=== PATIENT | male | born 1965 | race Caucasian/White ===

== ENCOUNTER 2017-10-05 04:07 | Emergency (ER) | payer OTHER, MEDICAID, SELFPAY ==
[2017-10-05] VITALS (13 sets, daily range): BP systolic 118–180; BP diastolic 75–112; PULSE 102–125; RESP 18–23; TEMP 36.2; O2SAT 96–100
[2017-10-05 04:41] LABS: Add Manual Diff / Slide Review NO; Basophils Percent Auto 0.2 % (0-2); Eosinophils Percent Auto 0.1 % (2-4); Hematocrit 44.6 % (41-53); Hemoglobin 14.8 g/dL (13.5-17.5); Lymphocytes Percent Auto 4.1 % (25-40); Mean Corpuscular HGB Conc 33.2 % (30-36); Mean Corpuscular Hemoglobin 31.3 PG (26-34); Mean Corpuscular Volume 94.3 fL (80-100); Monocytes Percent Auto 2.1 % (3-14); Neutrophils Absolute Auto 17100 /uL (3000-5900); Neutrophils Percent Auto 93.5 % (50-75); Platelet Count 308 X10^3/uL (150-400); Red Blood Cell Count 4.72 X10^6/uL (4.5-5.9); Red Cell Distribution Width 12.9 % (11.6-14.8); White Blood Cell Count 18.3 X10^3/uL (4.5-11.0)
[2017-10-05 04:45] LABS: Alanine Aminotransferase 32 IU/L (21-72); Albumin 4.8 g/dL (3.5-5.0); Albumin Globulin Ratio 1.3 (1.0-2.8); Alkaline Phosphatase 105 U/L (38-126); Aspartate Aminotransferase 30 IU/L (17-59); Bilirubin Total 0.4 mg/dL (0.2-1.3); Blood Urea Nitrogen 12 mg/dL (9-20); Calcium 9.7 mg/dL (8.4-10.2); Carbon Dioxide 27 mmol/L (22-32); Chloride 106 mmol/L (98-107); Estimated Glomerular Filt Rate > 60.0 mL/min (>60); Globulin 3.8 g/dL (1.7-4.1); Glucose 135 mg/dL (70-100); HEMOLYSIS < 15 (0-50); Lipase 50 U/L (23-300); Potassium 4.9 mmol/L (3.4-5.1); Sodium 148 mmol/L (137-145); Total Protein 8.6 g/dL (6.3-8.2)
--- NOTE | 2017-10-05 04:56 | ED_ITS ---
HPI - Overdose General Chief Complaint: Toxicology Problem Stated Complaint: Overdose Time Seen by Provider: 10/05/17 04:30 Source: patient Mode of arrival: ambulatory Limitations: no limitations History of Present Illness HPI Narrative: The patient is here with a methamphetamine overdose. He was approached by police officers about 10:00 p.m. yesterday, he swallowed 2 g of methamphetamine. He arrives with diaphoresis, tremor, and difficulty walking. He is oriented. He denies chest pain or dyspnea. He has had no vomiting. There has been no seizure activity. He has not passed out. He has a history of BPH, he cannot urinate. He has lower abdominal pain associated with this. Bowel movements have been normal. Urine output was normal earlier today. He later informed me that he is a heavy, daily drinker. His last drink was about 4:00 p.m. yesterday. He wishes to be sober. Related Data Previous Rx's Medication Instructions Recorded fluticasone 1 spray INTRANASAL BID #16 gm 01/25/16 sildenafil [Viagra] 50 mg PO PRN PRN #6 tab 01/25/16 Allergies Allergy/AdvReac Type Severity Reaction Status Date / Time No Known Drug Allergies Allergy Verified 10/05/17 06:03 Review of Systems Review of Systems All systems reviewed & are unremarkable except as noted in HPI and below Constitutional Reports as per HPI, Denies chills, Denies fever(s), Denies lethargy and Denies weakness Eyes Denies change in vision ENT Ears, Nose, Mouth, and Throat: Denies dysphagia, Denies dizziness and Denies sore throat Cardiovascular Denies chest pain, Reports diaphoresis, Reports rapid heart rate, Denies palpitations and Denies dyspnea Respiratory Denies dyspnea Gastrointestinal Gastrointestinal: Denies abdominal pain, Denies change in bowel habits and Denies dysphagia Genitourinary Reports as per HPI Musculoskeletal Denies back pain, Denies muscle weakness, Denies numbness and Denies tingling Integumentary/Breasts Denies erythema, Denies rash and Denies wounds Neurologic Denies confusion, Denies dizziness, Denies numbness, Denies tingling and Denies weakness Comments: Difficulty walking Psychiatric Reports anxiety and Denies confusion Endocrine Denies palpitations [facility] Medical History BPH (benign prostatic hyperplasia) (Acute) Family History Brother Age: 45 Mental health problem Mother Age: 68 Hypertension Asthma Exam Initial Vital Signs Initial Vital Signs: Vital Signs Temperature 97.2 F L 10/05/17 04:31 Pulse Rate 125 H 10/05/17 04:31 Respiratory Rate 18 10/05/17 04:31 Blood Pressure 137/82 H 10/05/17 04:31 Pulse Oximetry 97 10/05/17 04:31 See RN notes for vitals. Const General: cooperative, in distress, anxious and diaphoretic Nutritional Appearance: average body habitus HENMT Head: normal to inspection, normocephalic and atraumatic Face and sinus: normal facial exam and face symmetric Throat: posterior oropharynx normal, tonsils normal and posterior oropharynx abnormal Eyes General: appearance normal, both eyes and all related structures Visual Vela: normal visual vela by confrontation Conjunctivae: conjunctivae normal Pupils: PERRL EOM: EOM intact bilaterally Neck Neck: normal visual inspection, full ROM, trachea midline and No tender Resp Effort & Inspection: normal respiratory effort, able to speak in complete sentences, no respiratory distress and no use of accessory muscles Auscultation: clear to auscultation bilaterally, no rales, no rhonchi and no wheezes Cardio Rate: regular rate Rhythm: regular rhythm Heart Sounds: no click, no gallops, no murmurs and no rubs Pulses: normal peripheral pulses GI Inspection: other (The patient has suprapubic tenderness with distention suggestive of urinary retention. The tenderness is not accompanied by guarding or rebound. He has normal bowel sounds. Abdomen is otherwise benign.) Back/Spine/Pelvis Back: No CVA tenderness Skin General: no rashes or lesions noted Neuro General: alert, awake, oriented x3, no focal motor deficits, not confused and other (Generalized tremor with mild ataxia.) Cranial Nerves: CN's II-XI intact bilaterally Speech: speech normal Motor: muscle tone normal throughout Extrem General: no pedal edema and no calf tenderness Psych Speech and Movement: agitated and restless Mood: dysthymic mood Course Orders Ordered: Discontinued Medications Sodium Chloride (Normal Saline 0.9%) 1,000 mls @ 1,000 mls/hr IV BOLUS ONE Stop: 10/05/17 05:30 Last Infusion: 10/05/17 11:14 Dose: 0 mls/hr Admin: 10/05/17 06:11 Dose: 1,000 mls/hr Lorazepam (Ativan) 1 mg IV NOW ONE Stop: 10/05/17 04:32 Last Admin: 10/05/17 06:10 Dose: 1 mg Lorazepam (Ativan) 1 mg IV NOW ONE Stop: 10/05/17 07:44 Last Admin: 10/05/17 07:49 Dose: 1 mg Vital Signs - 8 hr 10/05/17 04:31 10/05/17 05:00 10/05/17 06:17 Temperature 97.2 F L Pulse Rate 125 H 122 H 115 H Respiratory Rate 18 19 Blood Pressure [Right Arm] 137/82 H 145/112 H 153/95 H Pulse Oximetry 97 97 97 10/05/17 06:19 10/05/17 06:55 10/05/17 07:16 Temperature Pulse Rate 114 H 120 H 121 H Respiratory Rate 20 19 23 Blood Pressure [Right Arm] 162/99 H 141/88 H 162/109 H Pulse Oximetry 97 96 MDM - Overdose Lab Data Result diagrams: 10/05/17 04:10 10/05/17 04:10 Lab Results 10/05/17 10/05/17 Range/Units 04:10 04:10 WBC 18.3 H (4.5-11.0) X10^3/uL RBC 4.72 (4.5-5.9) X10^6/uL Hgb 14.8 (13.5-17.5) g/dL Hct 44.6 (41-53) % MCV 94.3 (80-100) fL MCH 31.3 (26-34) PG MCHC 33.2 (30-36) % RDW 12.9 (11.6-14.8) % Plt Count 308 (150-400) X10^3/uL Neut % (Auto) 93.5 H (50-75) % Lymph % (Auto) 4.1 L (25-40) % [place] % (Auto) 2.1 L (3-14) % Eos % (Auto) 0.1 L (2-4) % Baso % (Auto) 0.2 (0-2) % Neut # (Auto) 07249 H (8752-3828) /uL Sodium 148 H (137-145) mmol/L Potassium 4.9 (3.4-5.1) mmol/L Chloride 106 (98-107) mmol/L Carbon Dioxide 27 (22-32) mmol/L BUN 12 (9-20) mg/dL Creatinine 0.80 (0.66-1.25) mg/dL Estimated GFR > 60.0 (>60) mL/min BUN/Creatinine Ratio 15.0 (6-22) Glucose 135 H (70-100) mg/dL Calcium 9.7 (8.4-10.2) mg/dL Total Bilirubin 0.4 (0.2-1.3) mg/dL AST 30 (17-59) IU/L ALT 32 (21-72) IU/L Alkaline Phosphatase 105 (38-126) U/L Total Protein 8.6 H (6.3-8.2) g/dL Albumin 4.8 (3.5-5.0) g/dL Globulin 3.8 (1.7-4.1) g/dL Albumin/Globulin Ratio 1.3 (1.0-2.8) Lipase 50 (23-300) U/L MDM Narrative Medical decision making narrative: About 7:00 a.m. the patient informed me of his alcohol use. He has been without methamphetamine for 9 hr, it is unlikely the methamphetamine is having the impact this point. He is normotensive, oriented x3. His heart rate is 118 and he has ongoing mild to moderate tremor. I strongly suggested a detox facility. He desires of [facility] but declines, he has already made plans to seek counseling, and wants to do this without chemicals. He has urinary retention and will be discharged with a leg bag with Urology consultation. Discharge Plan Departure Patient Disposition: Home, Self-Care Clinical Impression: Alcohol withdrawal syndrome, Methamphetamine abuse, Acute urinary retention Discharge Date/Time: 10/05/17 13:04 Interventions: ED Discharge Assessment Last Done: 10/05/17 12:47 Instructions: DI for Drug or Alcohol Withdrawal Activity Restrictions/Additional Instructions: Drink plenty of fluids and stay well hydrated. Follow through with her plan for alcoholism treatment. Your inability to urinate may be associated with the methamphetamine abuse, we will pull the tube, return here if you have ongoing problems. Prescriptions: No Action sildenafil [Viagra] 50 MG tablet 50 mg PO PRN PRNQty: 6 RF: 3 fluticasone 16 GM spray,suspension 1 spray Intranasal BID Qty: 16 RF: 1
--- NOTE | 2017-10-05 05:09 | PC.NURSE ---
Pt. having difficulty urinating but refuses cath. alerted, no further orders. Pt. continuing with to use urinal
[2017-10-05] MEDS: LORazepam 2 MG/ML SYRINGE 1 MG IV ×2 (06:10→07:49)
[2017-10-05] MEDS: SODIUM CHLORIDE 0.9% 1,000 ML 1000 ML IV (06:11)
--- NOTE | 2017-10-05 07:12 | PC.NURSE ---
0545 patient bladder scan showed approximately 400 ml of urine, childress placed and had 500 cc of urine output
--- NOTE | 2017-10-05 08:54 | PC.NURSE ---
Pt stood at bedside. noted to be shaky and this RN felt pt was unsafe to attempt stepping away from side of bed. pt directed to get back into bed, which he did. Dr. Lim notified of ambulation trial fail
--- NOTE | 2017-10-05 09:14 | PC.NURSE ---
poison control called for update. update given
--- NOTE | 2017-10-05 09:33 | PC.NURSE ---
No triage done by admitting RN. Given report upon arrival at 0700
--- NOTE | 2017-10-05 10:54 | PC.NURSE ---
patient was able to stand but I do not feel he is ready to leave. He is unsteady on feet. @[id number]
== END 2017-10-05 13:04 | disposition home or self-care (01) ==
PROVIDERS: Emergency Medicine; Emergency Provider Emergency Medicine; Family Provider Family Medicine; PCP Family Medicine
DX: F10.239 Alcohol dependence with withdrawal, unspecified (principal); F15.10 Other stimulant abuse, uncomplicated; R33.8 Other retention of urine
CPT/HCPCS: 51705; 80053; 83690; 85025; 96361; 96374; 96375; 99283; 99285; J2060

== ENCOUNTER 2017-10-06 07:31 | Emergency (ER) | payer OTHER, MEDICAID, SELFPAY ==
[2017-10-06 07:50] VITALS: BP 139/84; PULSE 92; RESP 14; TEMP 36.3; O2SAT 97
--- NOTE | 2017-10-06 07:58 | ED_ITS ---
HPI - Male Genitourinary General Chief complaint: Urogenital-Male Stated complaint: CATHETER PAIN Time Seen by Provider: 10/06/17 07:53 Source: patient Mode of arrival: ambulatory Limitations: no limitations History of Present Illness HPI Narrative: Patient is a 51-year-old male who presents with painful urination. He had a Bright catheter placed in the ED yesterday for urinary retention. He says that he has been urinating fine but it schwab every time. No abdominal pain no nausea no vomiting he is overall feeling much better than he was yesterday. MD Complaint: dysuria Location: penis Related Data Previous Rx's Medication Instructions Recorded fluticasone 1 spray INTRANASAL BID #16 gm 01/25/16 sildenafil [Viagra] 50 mg PO PRN PRN #6 tab 01/25/16 sulfamethoxazole-trimethoprim 1 tab PO BID 5 Days #10 tab 10/06/17 [Bactrim DS] Allergies Allergy/AdvReac Type Severity Reaction Status Date / Time No Known Drug Allergies Allergy Verified 10/06/17 07:50 Review of Systems Review of Systems GENERAL: Denies chills,fever HEENT: Denies throat pain RESPIRATORY: Denies dyspnea, cough, wheezing CARDIOVASCULAR: Denies chest pain, palpitations GASTROINTESTINAL: Denies nausea, vomiting : See HPI MUSCULOSKELETAL: Denies extremity pain, injury SKIN: No rash, no laceration, no pruritus NEUROLOGIC: Denies weakness, dizziness, headache, numbness review of systems is negative except for those stated above and HPI All systems reviewed & are unremarkable except as noted in HPI and below PFSH Medical History BPH (benign prostatic hyperplasia) (Acute) Methamphetamine abuse (Acute) Exam Initial Vital Signs Initial Vital Signs: Vital Signs Temperature 97.4 F L 10/06/17 07:50 Pulse Rate 92 H 10/06/17 07:50 Respiratory Rate 14 10/06/17 07:50 Blood Pressure 139/84 H 10/06/17 07:50 Pulse Oximetry 97 10/06/17 07:50 Const General: cooperative and well developed Nutritional Appearance: well nourished Orientation: alert, awake, oriented x3 and not confused Eyes General: appearance normal, both eyes and all related structures Neck Neck: normal visual inspection and full ROM Chest Chest: normal inspection of the chest Resp Effort & Inspection: normal respiratory effort and able to speak in complete sentences Cardio Pulses: normal peripheral pulses GI Palpation: soft, No rigid and No tender General: No CVA tenderness Skin General: no rashes or lesions noted, No erythema, No induration, No petechiae and warm Neuro General: alert, awake, oriented x3 and CN's II-XI intact bilaterally Speech: speech normal Gait: normal gait Course Orders Ordered: ED Orders 10/06/17 08:40 Urinalysis and Microscopic Stat Discontinued Medications Phenazopyridine HCl (Pyridium 100mg Prepack) 1 bottle MISC SEEINSTR ONE Stop: 10/06/17 08:48 Last Admin: 10/06/17 09:24 Dose: 1 bottle Vital Signs - 8 hr 10/06/17 07:50 10/06/17 09:27 10/06/17 09:28 Temperature 97.4 F L Pulse Rate 92 H 87 87 Respiratory Rate 14 17 17 Blood Pressure 139/84 H 133/76 H Blood Pressure [Right Arm] 133/76 H Pulse Oximetry 97 99 99 MDM - Male Genitourinary Lab Data Lab Results 10/06/17 Range/Units 08:40 Urine Color Yellow Urine Appearance Clear Urine pH 6.0 (4.5-8.0) Ur Specific [place] >=1.030 H (1.000-1.035) Urine Protein 1+ H (Negative) Urine Glucose (UA) Negative (Normal) g/dL Urine Ketones Trace H (NEGATIVE) Urine Occult Blood 1+ H (Negative) Urine Nitrate Negative (Negative) Urine Bilirubin Negative (NEGATIVE) Urine Urobilinogen 0.2 (0.2) E.U./dL Ur Leukocyte Esterase Negative (NEGATIVE) Urine RBC 1-5/hpf (0-5/HPF) Urine WBC 0-1/hpf (0-5/HPF) Urine Bacteria Occasional (0-1) (None) Urine Mucus 3+ H (Negative) Ur Culture Indicated? Cult not indicated Micro UA Comment Not Reportable Discharge Plan Departure Patient Disposition: Home, Self-Care Clinical Impression: UTI (urinary tract infection) Discharge Date/Time: 10/06/17 09:29 Interventions: ED Discharge Assessment Last Done: 10/06/17 09:28 Instructions: DI for Urinary Tract Infection (UTI) Activity Restrictions/Additional Instructions: *You have been diagnosed with UTI *What to do: Increase fluid intake *Continue to take medications as directed -Pyridium 3 times a day only if needed for burning sensation -Septra twice a day for 5 days *Follow up with your primary care provider in 2-3 days *Return to ER if you should have any new, worsening or concerning symptoms Prescriptions: New sulfamethoxazole-trimethoprim [Bactrim DS] 800-160 mg tablet 1 tab PO BID 5 Days Qty: 10 RF: 0 No Action sildenafil [Viagra] 50 MG tablet 50 mg PO PRN PRNQty: 6 RF: 3 fluticasone 16 GM spray,suspension 1 spray Intranasal BID Qty: 16 RF: 1 Referrals: Denice Viera DO [Primary Care Provider] -
[2017-10-06 09:02] LABS: Appearance Urine UA CLEAR; Bilirubin Urine UA NEGATIVE (NEGATIVE); Color Urine UA YELLOW; Glucose Urine UA NEGATIVE (Normal); Ketones Urine UA TRACE (NEGATIVE); Leukocyte Esterase Urine UA NEGATIVE (NEGATIVE); Nitrite Urine UA Negative (Negative); Occult Blood Urine UA 1+ (Negative); Protein Urine UA 1+ (Negative); Specific Gravity Urine UA >=1.030 (1.000-1.035); Urobilinogen Urine UA 0.2 E.U./dL (0.2)
[2017-10-06 09:06] LABS: Bacteria Urine Occasional (0-1); Culture Indicated Urine Cult Not Indicated; Mucus Urine 3+ (Negative); RBC Urine 1-5/HPF (0-5/HPF); WBC Urine 0-1/HPF (0-5/HPF)
[2017-10-06] MEDS: PHENAZOPYRIDINE 100 MG PREPACK 1 BOTTLE MISC (09:24)
[2017-10-06 09:27] VITALS: BP 133/76; PULSE 87; RESP 17; O2SAT 99
[2017-10-06 09:28] VITALS: BP 133/76; PULSE 87; RESP 17; O2SAT 99
== END 2017-10-06 09:29 | disposition home or self-care (01) ==
PROVIDERS: Emergency Provider Emergency Medicine; Family Provider Family Medicine; PCP Family Medicine
DX: N39.0 Urinary tract infection, site not specified (principal)
CPT/HCPCS: 81001; 81003; 99282; 99283

== ENCOUNTER 2020-04-27 11:30 | Emergency (ER) | payer OTHER, MEDICAID, SELFPAY ==
[2020-04-27] VITALS (11 sets, daily range): BP systolic 134–169; BP diastolic 80–93; PULSE 53–77; RESP 14; TEMP 36.8; O2SAT 95–100; BMI 25.0
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
--- NOTE | 2020-04-27 12:10 | PC.NURSE ---
Officer Mac with [employer] here to speak with pt
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
[2020-04-27] MEDS: SODIUM CHLORIDE 0.9% 1,000 ML 1000 ML IV (12:39)
[2020-04-27 12:41] LABS: Add Manual Diff / Slide Review NO; Basophils Absolute Auto 100 /uL (0-100); Basophils Percent Auto 0.5 % (0-2); Eosinophils Absolute Auto 100 /uL (0-450); Eosinophils Percent Auto 1.2 % (2-4); Hematocrit 44.6 % (41-53); Hemoglobin 14.6 g/dL (13.5-17.5); Lymphocytes Absolute Auto 1900 /uL (1100-4500); Lymphocytes Percent Auto 19.6 % (25-40); Mean Corpuscular HGB Conc 32.8 % (30-36); Mean Corpuscular Hemoglobin 31.1 PG (26-34); Mean Corpuscular Volume 94.7 fL (80-100); Monocytes Absolute Auto 700 /uL (0-900); Monocytes Percent Auto 6.6 % (3-14); Neutrophils Absolute Auto 7100 /uL (1500-7000); Neutrophils Percent Auto 72.1 % (50-75); Platelet Count 218 X10^3/uL (150-400); Red Blood Cell Count 4.71 X10^6/uL (4.5-5.9); Red Cell Distribution Width 13.1 % (11.6-14.8); White Blood Cell Count 9.8 X10^3/uL (4.5-11.0)
--- NOTE | 2020-04-27 12:57 | ED.ASSAULT ---
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 Departure Patient Disposition: Home Clinical Impression: Orbit fracture, right Qualifiers: Encounter type: initial encounter Fracture type: closed Qualified Code(s): S02.85XA - Fracture of orbit, unspecified, initial encounter for closed fracture Fracture, nasal Qualifiers: Encounter type: initial encounter Fracture type: closed Qualified Code(s): S02.2XXA - Fracture of nasal bones, initial encounter for closed fracture Increased intraocular pressure Qualifiers: Laterality: right Qualified Code(s): H40.051 - Ocular hypertension, right eye CHI (closed head injury) Qualifiers: Encounter type: initial encounter Qualified Code(s): S09.90XA - Unspecified injury of head, initial encounter Closed rib fracture Qualifiers: Encounter type: initial encounter Rib fracture type: single rib Laterality: left Qualified Code(s): S22.32XA - Fracture of one rib, left side, initial encounter for closed fracture Instructions: DI for Nose Fracture, DI for Rib Fracture, DI for Orbital Fracture, DI for Closed Head Injury, DI for Abrasion Activity Restrictions/Additional Instructions: You have been diagnosed with [right-sided orbital fracture, nasal fracture, increased ocular pressure, closed head injury, mildly displaced closed 8 left-sided rib flexure]. What to do: *Take your medications as directed. Please use [id number] Tylenol and or Motrin as needed for discomfort. Use lidocaine patch on affected back pain as needed. Please sleep with head of bed elevated and use cool pack on affected eye to help with swelling. Please do not blow your nose. Lidocaine patch has been transmitted to [facility] in [place]. Please use Timolol eye drop that was provided to you in ED 1 drop, once a day to help with increased eye pressure. You need to follow-up with print shop manager next week to recheck your eye. You need to follow-up with [place] [facility] in 7-10 days. They will call you to set up an appointment but if you do not hear back from them tomorrow please contact them at [phone]. It is located at [address] [place] [address]. *Follow up with your primary care provider tomorrow as scheduled. Let them know you were seen in the ED and that we asked you to be seen in follow up. *Return to ED if you have any new, worsening, or concerning symptoms, such as [worsening pain, worsening eye pain, severe headache, nausea, vomiting, fever, chills, changes in vision, chest pain, breathing difficulty, or any acute concerns]. Prescriptions: New lidocaine 5 % adhesive patch,medicated 1 patch topical DAILY PRN (Reason: back pain) Qty: 30 RF: 0 No Action sildenafil [Viagra] 50 MG tablet 50 mg PO PRN PRNQty: 6 RF: 3 fluticasone propionate 16 GM spray,suspension 1 spray Intranasal BID Qty: 16 RF: 1 Referrals: Elva Comer MD [Physician] - <Velma Lim DO - Last Filed: 04/30/20 13:46> Cosign ED Attending Shuature Attestation: I was immediately available in the department for consultation. Documentation has been reviewed. I agree with assessment and plan.
[2020-04-27 12:59] LABS: Alanine Aminotransferase 24 IU/L (<50); Albumin 4.2 g/dL (3.5-5.0); Albumin Globulin Ratio 1.4 (1.0-2.8); Alkaline Phosphatase 79 U/L (38-126); Aspartate Aminotransferase 36 IU/L (17-59); BUN Creatinine Ratio 22.4 (6-22); Bilirubin Total 0.3 mg/dL (0.2-1.3); Blood Urea Nitrogen 17 mg/dL (9-20); Calcium 9.2 mg/dL (8.4-10.2); Carbon Dioxide 29 mmol/L (22-32); Chloride 107 mmol/L (98-107); Estimated Glomerular Filt Rate > 60.0 mL/min (>60); Glucose 101 mg/dL (70-100); HEMOLYSIS < 15 (0-50); Lipase 69 U/L (23-300); Potassium 4.2 mmol/L (3.4-5.1); Sodium 140 mmol/L (137-145); Total Protein 7.2 g/dL (6.3-8.2)
[2020-04-27] MEDS: LIDOCAINE PATCH 1 EACH ADH..PATCH TOP (14:53)
[2020-04-27] MEDS: ACETAMINOPHEN 325 MG TABLET 650 MG PO (14:53)
[2020-04-27 15:36] LABS: Bacteria Urine None Seen; RBC Urine None Seen (0-5/HPF)
[2020-04-27 16:09] LABS: Appearance Urine UA CLEAR; Bilirubin Urine UA NEGATIVE (NEGATIVE); Color Urine UA YELLOW; Glucose Urine UA NEGATIVE (Negative); Ketones Urine UA TRACE (NEGATIVE); Leukocyte Esterase Urine UA NEGATIVE (NEGATIVE); Nitrite Urine UA NEGATIVE (Negative); Occult Blood Urine UA NEGATIVE (Negative); Protein Urine UA 2+ (Negative); Urobilinogen Urine UA 0.2 E.U./dL (0.2); pH Urine UA 6.5 (4.5-8.0)
[2020-04-27 16:11] LABS: Squamous Epithelial Cell Urine 0-1 /HPF (0-5/HPF); WBC Urine 1-5/HPF (0-5/HPF)
[2020-04-27 16:12] LABS: Culture Indicated Urine Cult Not Indicated
[2020-04-27] MEDS: KETOROLAC 60 MG/2 ML VIAL 15 MG IV (17:59)
[2020-04-27] MEDS: PROPARACAINE 0.5% OPHTH SOL 1 DROPS EYE-BOTH (18:00)
[2020-04-27] MEDS: TET,DIPH,PERTUSS(ACELL),VAC/PF 0.5 ML SYRINGE IM (18:03)
[2020-04-27] MEDS: TIMOLOL 0.5% OPHTH 1 DROPS EYE-RIGHT (18:35)
== END 2020-04-27 18:50 | disposition home or self-care (01) ==
PROVIDERS: Emergency Provider Nurse Practitioner Family; Family Provider Family Medicine
DX: S02.85XA Fracture of orbit, unspecified, initial encounter for closed fracture (principal); S02.2XXA Fracture of nasal bones, initial encounter for closed fracture; H40.051 Ocular hypertension, right eye; S09.90XA Unspecified injury of head, initial encounter; S22.32XA Fracture of one rib, left side, initial encounter for closed fracture; R07.0 Pain in throat; S00.31XA Abrasion of nose, initial encounter; M54.9 Dorsalgia, unspecified; N40.0 Benign prostatic hyperplasia without lower urinary tract symptoms; R07.81 Pleurodynia; Y04.2XXA Assault by strike against or bumped into by another person, initial encounter; Z23 Encounter for immunization
CPT/HCPCS: 36415; 70450; 70486; 71101; 80053; 81001; 81003; 83690; 85025; 90471; 96361; 96374; 99283; 99284; 90715; J1885

== ENCOUNTER 2021-02-17 18:57 | Emergency (ER) | payer OTHER, MEDICAID, SELFPAY ==
[2021-02-17 18:58] VITALS: BP 150/97; PULSE 169; RESP 22; TEMP 36.5; O2SAT 100; BMI 25.0
--- NOTE | 2021-02-17 19:01 | DI.RAD.S_ITS ---
PROCEDURE: XR CHEST 1V INDICATIONS: fall, trauma, preop TECHNIQUE: One view of the chest was acquired. COMPARISON: [facility], CR, XR CHEST 2 VIEWS, 06/08/2018, 11:50. FINDINGS: Surgical changes and devices: None. Lungs and pleura: Lungs are clear. There is hyperinflation of the lungs with flattening of the hemidiaphragms compatible with COPD. No pleural effusions or pneumothorax. Mediastinum: Mediastinal contours are unchanged. Heart size is mildly enlarged. Bones and chest wall: No suspicious bony lesions. Overlying soft tissues appear unremarkable. IMPRESSION: 1. No acute cardiopulmonary disease. 2. Findings compatible with COPD. Dictated by: Rai Zurita M.D. on 02/17/2021 at 19:52 Approved by: Rai Zurita M.D. on 02/17/2021 at 19:52
--- NOTE | 2021-02-17 19:01 | ED_ITS ---
HPI - Overdose General Chief Complaint: Toxicology Problem Stated Complaint: OD Time Seen by Provider: 02/17/21 19:00 History of Present Illness HPI Narrative: 55M smoker with history of polysubstance abuse presents by EMS for evaluation of OD. He had apparently just smoked some fentanyl and became unreponsive, EMS was dispatched as CPR in progress, but on arrival he was found to have a pulse, but agonal respirations. He was given a total of 6 mg of Narcan and had a rather rapid response. He has had a heart rate between 160 and 200 but appears to be in AFib PE. He states that he has also used some methamphetamines today. He did not receive any chest compressions. He is otherwise at baseline Related Data Previous Rx's Medication Instructions Recorded fluticasone propionate 50 1 spray INTRANASAL BID #16 gm 01/25/16 mcg/actuation nasal spray,suspension sildenafil 50 mg tablet (Viagra) 50 mg PO PRN PRN #6 tab 01/25/16 lidocaine 5 % topical patch 1 patch TOPICAL DAILY PRN #30 ea 04/27/20 Allergies Allergy/AdvReac Type Severity Reaction Status Date / Time No Known Drug Allergies Allergy Verified 04/27/20 11:46 Review of Systems Review of Systems Narrative: GENERAL: See HP. HEENT: Denies sinus pain, ear pain, sore throat, difficulty swallowing, dizziness. RESPIRATORY: Denies dyspnea, cough, wheezing, hemoptysis, sputum. CARDIOVASCULAR: See see HPI GASTROINTESTINAL: Denies nausea, vomiting, abdominal pain, diarrhea, constipation, melena. : Denies dysuria, frequency, incontinence, hematuria, urinary retention. MUSCULOSKELETAL: denies weakness, joint pain, or bony pain SKIN: Denies rash, skin lesions, or other NEUROLOGIC: Denies weakness, headache, numbness, change in speech, confusion, seizures, incoordination. PSYCHIATRIC: No concerning psychosocial issues. 12 point review of systems is negative except for those stated above Patient History Medical History BPH (benign prostatic hyperplasia) Methamphetamine abuse Surgical History History of facial surgery Family History Brother Age: 49 Mental health problem Mother Age: 72 Hypertension Asthma Social History Smoking Status: Current every day smoker Smoking Status: Current every day smoker alcohol intake frequency: 0-2 drinks per day Substance Use Type: former substance user and methamphetamine Exam Narrative Exam Narrative: GENERAL: [55] year old patient appears stated age. Shivering, alert and in moderate distress HEAD: Atraumatic. Normocephalic. EYES: Pupils equal round and reactive. Extraocular motions intact. No scleral icterus. No injection or drainage. ENT: Nose without bleeding, purulent drainage. Throat without erythema, tonsillar hypertrophy or exudate. Airway patent. NECK: Trachea midline. Non tender CARDIOVASCULAR: Regular rate and rhythm without murmurs, gallops, or rubs. RESPIRATORY: Clear to auscultation. Breath sounds equal bilaterally. No wheezes, rales, or rhonchi. GASTROINTESTINAL: Abdomen soft, non-tender, nondistended. EXTREMITIES: No edema or joint tenderness. BACK: Nontender without deformity or crepitance. No flank tenderness. NEURO: AOx3. SKIN: No rash or erythema of visible areas Initial Vital Signs Initial Vital Signs: Vital Signs Temperature 97.7 F 02/17/21 18:58 Pulse Rate 169 H 02/17/21 18:58 Respiratory Rate 22 02/17/21 18:58 Blood Pressure 150/97 H 02/17/21 18:58 Pulse Oximetry 100 02/17/21 18:58 Course Orders Ordered: ED Orders 02/17/21 19:01 XR chest 1V Stat Complete Blood Count AUTO DIFF Stat Comprehensive Metabolic Panel Stat Magnesium Stat NT-proBNP (BNP-Adult 18+) Stat Troponin & CK Cardiac Panel Stat EKG-12 Lead Stat MDM - Overdose Lab Data Result diagrams: 02/17/21 19:00 02/17/21 19:00 Labs: Lab Results 02/17/21 02/17/21 Range/Units 19:00 19:00 WBC 10.0 (4.5-11.0) X10^3/uL RBC 4.88 (4.5-5.9) X10^6/uL Hgb 15.1 (13.5-17.5) g/dL Hct 46.1 (41-53) % MCV 94.5 (80-100) fL MCH 30.9 (26-34) PG MCHC 32.7 (30-36) % RDW 14.0 (11.6-14.8) % Plt Count 266 (150-400) X10^3/uL Neut % (Auto) 53.4 (50-75) % Lymph % (Auto) 39.8 (25-40) % [place] % (Auto) 4.5 (3-14) % Eos % (Auto) 1.8 L (2-4) % Baso % (Auto) 0.5 (0-2) % Neut # (Auto) 5300 (3539-0352) /uL Lymph # (Auto) 4000 (3709-1571) /uL Fleming # (Auto) 400 (0-900) /uL Eos # (Auto) 200 (0-450) /uL Baso # (Auto) 100 (0-100) /uL Sodium 142 (137-145) mmol/L Potassium 3.7 (3.4-5.1) mmol/L Chloride 104 (98-107) mmol/L Carbon Dioxide 29 (22-32) mmol/L BUN 8 L (9-20) mg/dL Creatinine 0.81 (0.66-1.25) mg/dL Estimated GFR > 60.0 (>60) mL/min BUN/Creatinine Ratio 9.9 (6-22) Glucose 144 H (70-100) mg/dL Calcium 9.1 (8.4-10.2) mg/dL Magnesium 2.1 (1.6-2.3) mg/dL Total Bilirubin 0.5 (0.2-1.3) mg/dL AST 34 (17-59) IU/L ALT 29 (<50) IU/L Alkaline Phosphatase 98 (38-126) U/L Total Creatine Kinase 111 (55-170) U/L CK-MB (CK-2) 2.07 (<2.37) ng/mL CK-MB (CK-2) Rel Index 1.9 (1.5-5.0) % Troponin I < 0.012 (0.01-0.034) ng/mL NT-Pro-B Natriuret Pep 94 (<125) pg/mL Total Protein 8.0 (6.3-8.2) g/dL Albumin 4.6 (3.5-5.0) g/dL Globulin 3.4 (1.7-4.1) g/dL Albumin/Globulin Ratio 1.4 (1.0-2.8) MDM Narrative Medical decision making narrative: Patient feeling much better soon after his arrival. He is awake, alert and oriented. He has full capacity to make his own decisions. His girlfriend has come to pick him up. He refuses to stay and very pleasantly departs despite discussion of risks and benefits. He understands that though unlikely his overdose symptoms may return and has been given extensive return precautions for what to watch out for. He understands that leaving may put him at risk for permanent disability or even . He he understands that he may return immediately and at any point without any represent caution. Discharge Plan Departure Patient Disposition: Left Against Medical Advice Clinical Impression: Overdose Prescriptions: No Action sildenafil [Viagra] 50 MG tablet 50 mg PO PRN PRNQty: 6 3RF fluticasone propionate 16 GM spray,suspension 1 spray Intranasal BID Qty: 16 1RF lidocaine 5 % adhesive patch,medicated 1 patch topical DAILY PRN (Reason: back pain) Qty: 30 0RF Rx Instructions: leave on most painful area for up to 12 hrs Stand Alone Forms: Against Medical Advice
[2021-02-17 19:04] VITALS: PULSE 164; RESP 23; O2SAT 99
[2021-02-17 19:12] LABS: Add Manual Diff / Slide Review NO; Basophils Absolute Auto 100 /uL (0-100); Basophils Percent Auto 0.5 % (0-2); Eosinophils Absolute Auto 200 /uL (0-450); Eosinophils Percent Auto 1.8 % (2-4); Hematocrit 46.1 % (41-53); Hemoglobin 15.1 g/dL (13.5-17.5); Lymphocytes Absolute Auto 4000 /uL (1100-4500); Lymphocytes Percent Auto 39.8 % (25-40); Mean Corpuscular HGB Conc 32.7 % (30-36); Mean Corpuscular Hemoglobin 30.9 PG (26-34); Mean Corpuscular Volume 94.5 fL (80-100); Monocytes Absolute Auto 400 /uL (0-900); Monocytes Percent Auto 4.5 % (3-14); Neutrophils Absolute Auto 5300 /uL (1500-7000); Neutrophils Percent Auto 53.4 % (50-75); Platelet Count 266 X10^3/uL (150-400); Red Blood Cell Count 4.88 X10^6/uL (4.5-5.9)
[2021-02-17 19:39] LABS: Alanine Aminotransferase 29 IU/L (<50); Albumin 4.6 g/dL (3.5-5.0); Albumin Globulin Ratio 1.4 (1.0-2.8); Alkaline Phosphatase 98 U/L (38-126); Aspartate Aminotransferase 34 IU/L (17-59); BUN Creatinine Ratio 9.9 (6-22); Bilirubin Total 0.5 mg/dL (0.2-1.3); Blood Urea Nitrogen 8 mg/dL (9-20); Calcium 9.1 mg/dL (8.4-10.2); Carbon Dioxide 29 mmol/L (22-32); Chloride 104 mmol/L (98-107); Creatine Kinase 111 U/L (55-170); Estimated Glomerular Filt Rate > 60.0 mL/min (>60); Globulin 3.4 g/dL (1.7-4.1); Glucose 144 mg/dL (70-100); HEMOLYSIS < 15 (0-50); Magnesium 2.1 mg/dL (1.6-2.3); Potassium 3.7 mmol/L (3.4-5.1); Sodium 142 mmol/L (137-145)
[2021-02-17 19:51] LABS: NT-proBNP (BNP-Adult 18+) 94 pg/mL (<125); Troponin I < 0.012 ng/mL (0.01-0.034)
[2021-02-17 19:55] LABS: CKMB % Relative Index 1.9 % (1.5-5.0); Creatine Kinase MB 2.07 ng/mL (<2.37)
== END 2021-02-17 19:38 | disposition left against medical advice (07) ==
PROVIDERS: Emergency Provider Emergency Medicine; Family Provider Family Medicine
DX: T40.414A Poisoning by fentanyl or fentanyl analogs, undetermined, initial encounter (principal); F15.10 Other stimulant abuse, uncomplicated; R00.0 Tachycardia, unspecified
CPT/HCPCS: 36415; 71045; 80053; 82550; 82553; 83735; 83880; 84484; 85025; 93005; 99283; 99284

== ENCOUNTER 2022-08-08 21:55 | Observation (INO) | payer OTHER, MEDICAID, SELFPAY ==
[2022-08-08] VITALS (7 sets, daily range): BP systolic 163–187; BP diastolic 84–109; PULSE 97–120; RESP 16–29; TEMP 37; O2SAT 96–97; BMI 24.3
[2022-08-08 22:45] LABS: Add Manual Diff / Slide Review NO; Basophils Absolute Auto 100 /uL (0-100); Basophils Percent Auto 0.4 % (0-2); Eosinophils Absolute Auto 0 /uL (0-450); Eosinophils Percent Auto 0.2 % (2-4); Hemoglobin 12.1 g/dL (13.5-17.5); Lymphocytes Absolute Auto 1800 /uL (1100-4500); Lymphocytes Percent Auto 10.9 % (25-40); Mean Corpuscular HGB Conc 32.7 % (30-36); Mean Corpuscular Hemoglobin 28.9 PG (26-34); Mean Corpuscular Volume 88.4 fL (80-100); Monocytes Absolute Auto 600 /uL (0-900); Monocytes Percent Auto 3.6 % (3-14); Neutrophils Absolute Auto 14100 /uL (1500-7000); Neutrophils Percent Auto 84.9 % (50-75); Platelet Count 359 X10^3/uL (150-400); Red Blood Cell Count 4.19 X10^6/uL (4.5-5.9); Red Cell Distribution Width 14.5 % (11.6-14.8); White Blood Cell Count 16.6 X10^3/uL (4.5-11.0)
[2022-08-08 22:48] LABS: PTT Partial Thromboplastin Tim 29 SECONDS (26-36)
[2022-08-08 22:49] LABS: Alanine Aminotransferase 19 IU/L (<50); Albumin 4.7 g/dL (3.5-5.0); Albumin Globulin Ratio 1.3 (1.0-2.8); Alkaline Phosphatase 93 U/L (38-126); Aspartate Aminotransferase 18 IU/L (17-59); BUN Creatinine Ratio 14.3 (6-22); Bilirubin Total 0.4 mg/dL (0.2-1.3); Blood Urea Nitrogen 11 mg/dL (9-20); Calcium 9.1 mg/dL (8.4-10.2); Carbon Dioxide 26 mmol/L (22-32); Chloride 101 mmol/L (98-107); Estimated Glomerular Filt Rate > 60 mL/min (>60); Globulin 3.5 g/dL (1.7-4.1); Glucose 120 mg/dL (70-100); HEMOLYSIS < 15 (0-50); Potassium 3.7 mmol/L (3.4-5.1); Sodium 140 mmol/L (137-145); Total Protein 8.2 g/dL (6.3-8.2)
[2022-08-08 23:51] LABS: Bacteria Urine None Seen; Culture Indicated Urine Specimen Cultured; RBC Urine >100/HPF (0-5/HPF); WBC Urine 5-10/HPF (0-5/HPF)
[2022-08-09] VITALS (9 sets, daily range): BP systolic 137–172; BP diastolic 78–98; PULSE 57–115; RESP 16–26; TEMP 35.9–37.2; O2SAT 94–98; BMI 24.3
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
--- NOTE | 2022-08-09 00:24 | DI.CT.S_ITS ---
PROCEDURE: CT ABDOMEN PELVIS W CON INDICATIONS: abdominal pain, hematuria, bloody stool TECHNIQUE: After the administration of IV contrast, axial sections were acquired from the lung bases to the pubic symphysis. Coronal and sagittal reformats were performed. For radiation dose reduction, the following was used: automated exposure control, adjustment of mA and/or kV according to patient size. COMPARISON: None. FINDINGS: Image quality: Excellent. Lung bases: Unremarkable. Heart: Heart is normal in size. ABDOMEN: Liver: No mass lesion. Gallbladder: Within normal limits without calcified gallstones. Biliary ducts: No biliary ductal dilatation. Pancreas: Unremarkable. Spleen: Normal in size. Adrenal Glands: No adrenal nodules. Kidneys and Ureters: No hydronephrosis. Stomach and Bowel: Stomach and small bowel loops are normal in caliber and wall thickness. The appendix is normal. There is colonic diverticulosis with associated diverticular and colonic wall thickening in the sigmoid colon consistent with acute diverticulitis. There is an associated pericolonic thick-walled peripherally enhancing fluid collection consistent with a diverticular abscess measuring up to 3.7 x 3.2 cm in transverse dimension by 4.1 cm in craniocaudal dimension. This demonstrates extension to the left bladder dome which demonstrates wall thickening and associated fat stranding. A small amount of intraluminal gas is also demonstrated in the bladder compatible with fistula formation. Peritoneum: There is minimal intraperitoneal free fluid in the lower abdomen. No free air. Ventral Wall: No hernia. Abdominal Nodes: No retroperitoneal or mesenteric adenopathy by size criteria. Vessels: Aorta and inferior vena cava are normal in size. PELVIS: Pelvic Organs: Unremarkable. Bladder: Unremarkable. Pelvic Nodes: No enlarged lymph nodes. Miscellaneous: No inguinal hernias are seen. Bones: Visualized osseous structures demonstrate no suspicious focal lesions. IMPRESSION: 1. Sigmoid diverticulitis with an associated diverticular abscess which demonstrates fistulous communication with the urinary bladder. Findings discussed with Dr. Quintero on 08/09/2022 at 1:10 a.m.. Dictated by: Rai Zurita M.D. on 08/09/2022 at 1:04 Approved by: Rai Zurita M.D. on 08/09/2022 at 1:14
[2022-08-09] MEDS: ONDANSETRON 4 MG/2 ML INJ IV (00:29)
[2022-08-09] MEDS: SODIUM CHLORIDE 0.9% 1,000 ML 1000 ML IV (00:29)
[2022-08-09 00:55] LABS: C-Reactive Protein Quant < 0.5 mg/dL (<1.0)
[2022-08-09 01:01] LABS: Erythrocyte Sedimentation Rate 7 MM/HR (0-15)
[2022-08-09 02:22] LABS: Lactate (Lactic Acid) 2.4 mmol/L (0.7-2.1)
[2022-08-09 02:24] LABS: COVID19 -Nasal RAPID Negative (Negative)
[2022-08-09] MEDS: SODIUM CHLORIDE 0.9% 1,000 ML 125 ML IV (02:31)
[2022-08-09] MEDS: PIPERACILLIN/TAZO 4.5 GM in SODIUM CHLORIDE 0.9% 100 ML IV (02:31)
--- NOTE | 2022-08-09 03:23 | PC.NURSE ---
Received patient from ED via stretcher in no distress. Patient awake alert in minimal pain. Able to walk to bed without difficulty.
[2022-08-09 04:14] LABS: Reflexed Lactate in 2 Hours Y
[2022-08-09 04:44] LABS: Lactate 2HR (Lactic Acid Rflx) 2.2 mmol/L (0.7-2.1)
--- NOTE | 2022-08-09 08:03 | PM.HP.1 ---
History of Present Illness History of Present Illness Date Patient Seen: 08/09/22 Time Patient Seen: 08:03 Chief complaint: urinating blood/ clots, defecating blood, Narrative: Six months of pneumoturia. New onset blood and stool in urine and rectal yesterday that has stopped/cleared up overnight. NO fevers, chills. NO diarrhea or nausea. UTI in the last 6 months. low grade pain to palpation in pelvis. [facility] Medical History BPH (benign prostatic hyperplasia) Methamphetamine abuse Opioid use disorder Surgical History History of facial surgery Family History Brother Age: 50 Mental health problem Mother Age: 73 Hypertension Asthma Social History Smoking Status: Current every day smoker Meds Home Medications and Allergies Home Medications Medication Instructions Recorded Confirmed Type No Known Home Medications 08/09/22 08/09/22 History Allergies Allergy/AdvReac Type Severity Reaction Status Date / Time No Known Drug Allergies Allergy Verified 08/09/22 00:38 Review of Systems Review of Systems Narrative: h/o cigarette abuse. ROS: Yes All systems reviewed with the patient and are negative except as otherwise documented Exam Vital Signs (past 8 hours): - 08/09/22 00:30 08/09/22 00:30 08/09/22 01:00 Temperature Pulse Rate 85 91 H Respiratory Rate 20 24 Blood Pressure 155/92 H Pulse Oximetry 95 97 Oxygen Delivery Method Oxygen Flow Rate 08/09/22 01:30 08/09/22 01:45 08/09/22 01:45 Temperature Pulse Rate 115 H 74 82 Respiratory Rate 20 18 Blood Pressure 166/95 H Pulse Oximetry 97 95 98 Oxygen Delivery Method Room Air Oxygen Flow Rate 08/09/22 02:00 08/09/22 02:00 08/09/22 02:30 Temperature Pulse Rate 85 66 Respiratory Rate 26 H Blood Pressure 172/98 H Pulse Oximetry 96 Oxygen Delivery Method Oxygen Flow Rate 08/09/22 03:49 Temperature 96.6 F L Pulse Rate 65 Respiratory Rate 20 Blood Pressure 137/78 Pulse Oximetry 94 Oxygen Delivery Method Oxygen Flow Rate 0 Oxygen Delivery Method Room Air Oxygen Flow Rate 0 Const General: cooperative, healthy appearing and comfortable Nutritional Appearance: thin HENMT Head: normal to inspection, normocephalic and atraumatic Nose: external nose normal Face and sinus: normal facial exam Eyes Sclera: sclerae normal Neck Neck: trachea midline Chest Chest: normal inspection of the chest Resp Effort & Inspection: normal respiratory effort and able to speak in complete sentences Cardio Rate: regular rate Rhythm: regular rhythm GI Palpation: soft and tender (lower, mid abdomen) Skin General: turgor normal Neuro General: patient alert, patient awake and patient oriented x3 Extrem General: full ROM Psych Appearance: grossly normal Mental Status: mental status grossly normal Affect: normal affect Judgment: judgment good Objective Labs 08/08/22 22:24 08/08/22 22:24 Labs: Laboratory Results - last 24 hr 08/08/22 08/08/22 08/08/22 21:56 21:56 22:08 WBC RBC Hgb Hct MCV MCH MCHC RDW Plt Count Neut % (Auto) Lymph % (Auto) [place] % (Auto) Eos % (Auto) Baso % (Auto) Neut # (Auto) Lymph # (Auto) [place] # (Auto) Eos # (Auto) Baso # (Auto) ESR PT INR APTT Sodium Potassium Chloride Carbon Dioxide BUN Creatinine Estimated GFR BUN/Creatinine Ratio Glucose Lactate 2.4 H Calcium Total Bilirubin AST ALT Alkaline Phosphatase C-Reactive Protein < 0.5 Total Protein Albumin Globulin Albumin/Globulin Ratio Urine RBC >100/hpf H Urine WBC 5-10/hpf H Urine Bacteria None seen Ur Culture Indicated? Specimen cultured SARS-CoV-2 (PCR) Blood Type Antibody Screen 08/08/22 08/08/22 08/08/22 22:24 22:24 22:24 WBC 16.6 H RBC 4.19 L Hgb 12.1 L Hct 37.0 L MCV 88.4 MCH 28.9 MCHC 32.7 RDW 14.5 Plt Count 359 Neut % (Auto) 84.9 H Lymph % (Auto) 10.9 L [place] % (Auto) 3.6 Eos % (Auto) 0.2 L Baso % (Auto) 0.4 Neut # (Auto) 42068 H Lymph # (Auto) 1800 [place] # (Auto) 600 Eos # (Auto) 0 Baso # (Auto) 100 ESR PT 12.0 INR 1.0 APTT 29 Sodium 140 Potassium 3.7 Chloride 101 Carbon Dioxide 26 BUN 11 Creatinine 0.77 Estimated GFR > 60 BUN/Creatinine Ratio 14.3 Glucose 120 H Lactate Calcium 9.1 Total Bilirubin 0.4 AST 18 ALT 19 Alkaline Phosphatase 93 C-Reactive Protein Total Protein 8.2 Albumin 4.7 Globulin 3.5 Albumin/Globulin Ratio 1.3 Urine RBC Urine WBC Urine Bacteria Ur Culture Indicated? SARS-CoV-2 (PCR) Blood Type Antibody Screen 08/08/22 08/08/22 08/09/22 22:24 22:24 01:53 WBC RBC Hgb Hct MCV MCH MCHC RDW Plt Count Neut % (Auto) Lymph % (Auto) [place] % (Auto) Eos % (Auto) Baso % (Auto) Neut # (Auto) Lymph # (Auto) [place] # (Auto) Eos # (Auto) Baso # (Auto) ESR 7 PT INR APTT Sodium Potassium Chloride Carbon Dioxide BUN Creatinine Estimated GFR BUN/Creatinine Ratio Glucose Lactate Calcium Total Bilirubin AST ALT Alkaline Phosphatase C-Reactive Protein Total Protein Albumin Globulin Albumin/Globulin Ratio Urine RBC Urine WBC Urine Bacteria Ur Culture Indicated? SARS-CoV-2 (PCR) Negative Blood Type O Positive Antibody Screen Negative 08/09/22 04:15 WBC RBC Hgb Hct MCV MCH MCHC RDW Plt Count Neut % (Auto) Lymph % (Auto) [place] % (Auto) Eos % (Auto) Baso % (Auto) Neut # (Auto) Lymph # (Auto) [place] # (Auto) Eos # (Auto) Baso # (Auto) ESR PT INR APTT Sodium Potassium Chloride Carbon Dioxide BUN Creatinine Estimated GFR BUN/Creatinine Ratio Glucose Lactate 2.2 H Calcium Total Bilirubin AST ALT Alkaline Phosphatase C-Reactive Protein Total Protein Albumin Globulin Albumin/Globulin Ratio Urine RBC Urine WBC Urine Bacteria Ur Culture Indicated? SARS-CoV-2 (PCR) Blood Type Antibody Screen Assessment & Plan Assessment & Plan narrative: colovesical fistula with intraabdominal abscess. tobacco abuse leukocytosis Plan: Antibiotics for leukocytosis outpatient colonoscopy Elective sigmoid colon resection with repair of colovesical fistula COVID-19 COVID-19 status: Negative Time Spent With Patient Time with patient: 30 to 49 minutes with 50% spent counseling/coordinating care
[2022-08-09] MEDS: SODIUM CHLORIDE 0.45% 1,000 ML 100 ML IV (08:04)
[2022-08-09 08:23] LABS: Add Manual Diff / Slide Review NO; Basophils Absolute Auto 100 /uL (0-100); Basophils Percent Auto 1.2 % (0-2); Eosinophils Absolute Auto 100 /uL (0-450); Eosinophils Percent Auto 0.4 % (2-4); Hematocrit 34.4 % (41-53); Hemoglobin 11.3 g/dL (13.5-17.5); Lymphocytes Absolute Auto 2000 /uL (1100-4500); Mean Corpuscular HGB Conc 32.9 % (30-36); Mean Corpuscular Hemoglobin 29.1 PG (26-34); Mean Corpuscular Volume 88.4 fL (80-100); Monocytes Absolute Auto 500 /uL (0-900); Monocytes Percent Auto 4.8 % (3-14); Neutrophils Absolute Auto 8400 /uL (1500-7000); Neutrophils Percent Auto 75.6 % (50-75); Platelet Count 335 X10^3/uL (150-400); Red Blood Cell Count 3.89 X10^6/uL (4.5-5.9); Red Cell Distribution Width 14.2 % (11.6-14.8); White Blood Cell Count 11.2 X10^3/uL (4.5-11.0)
[2022-08-09] MEDS: PIPERACILLIN/TAZO 3.375 GM in SODIUM CHLORIDE 0.9% 100 ML IV (09:28)
[2022-08-09] MEDS: HEPARIN 5,000 UNIT/ML VIAL 5000 UNIT SUBCUT (09:28)
[2022-08-09] MEDS: AMOXICILLIN/CLAV 875/125 MG 1 TAB PO (12:54)
--- NOTE | 2022-08-09 13:50 | CM.DANOTE ---
Initial DCP Assessment Note Pt is a 56 yo male, history of opioid and methamphetamine use recently in [facility] [facility] for the last 65 days, released yesterday. Presents to the ER with blood in his urine and stool. Patient stayed overnight, dx with colovesical fistula with intraabdominal abscess. Patient being discharged today on abx w/recommendation for close outpatient follow up and need for abdominal surgery/repair PCP Unknown, chart states Denice Viera, did not confirm with patient Payer: Robert/DACIA RN Selin asks that this ENVIRONMENTAL MARKETING REPRESENTATIVE discuss [place] [facility] resources with patient before he leaves. Met w/patient to introduce role. Patient tearful throughout this visit; states he plans on remaining sober and will be accessing RIK/counseling services through [facility] and [facility] Patient is currently homeless, explains his ex gf took his trailer while he was in [facility]. Discussed [facility] and [facility] in [place]. Patient wants to stay in [place], says he has court scheduled here tomorrow. Offered number for [facility], Motel Voucher program. Patient states he will walk over there and speak w/someone about this resource Patient knows how/where to access meals in [place] and denies further needs from this ENVIRONMENTAL MARKETING REPRESENTATIVE Plan: Discharge today, patient will picker feeder his medications and will walk over to the [facility] to inquire about motel voucher bed availability, close outpatient follow up recommended w/general surgery ELISE Novak Discharge Planning/Care Management CM Discharge Assessment Start: 08/09/22 13:39 Freq: Status: Active Protocol: Document 08/09/22 13:39 AAMIR (Rec: 08/09/22 13:50 AAMIR [id number]) Discharge Planning Assessment Assigned Cow Trimmer ELISE Echeverria DPOA/Assigned Designee Name None Advance Directives? No History Provided By Patient Comment Homeless, recently lost his trailer to an ex-gf and her son while patient was incarcerated Independent with ADL's Yes Is patient alert and oriented? Yes Comment Motel voucher program vs drop in homeless [place] [facility] Barriers to Discharge No Discharge Plan Homeless Alf Transportation Arrangement Patient uses the bus as needed Referrals Initiated None needed
--- NOTE | 2022-08-09 13:55 | PC.NURSE ---
IV removed. Discussed s/s of stroke, worsening symptoms,hydration, and when to follow up. Discussed importance of taking oral antibiotics as directed and taking probiotics. Took pt to [facility] to complete paperwork for pending outpatient surgery.
== END 2022-08-09 13:25 | disposition home or self-care (01) | DRG 468 ==
LOC: ED 22:41 → AC 08-09 02:25
PROVIDERS: Admitting Provider Surgery; Emergency Provider Emergency Medicine; Family Provider Family Medicine; Referring Provider Emergency Medicine; Visit Provider Surgery
DX: N32.1 Vesicointestinal fistula (principal); K65.1 Peritoneal abscess; K92.1 Melena; F17.200 Nicotine dependence, unspecified, uncomplicated; Z20.822 Contact with and (suspected) exposure to COVID-19
CPT/HCPCS: 36415; 74177; 80053; 81003; 81015; 83605; 85025; 85610; 85651; 85730; 86140; 86850; 86900; 86901; 87040; 87086; 87635; 93005; 96365; 96375; 99234; 99284; C9803; G0378; J1644; J2405; J2543; J7050; Q9967

== ENCOUNTER 2022-08-15 09:13 | Inpatient (IN) | payer OTHER, MEDICAID, SELFPAY ==
[2022-08-09 03:02] VITALS: BMI 24.3
[2022-08-14 11:54] VITALS: BMI 22.8
[2022-08-15] VITALS (22 sets, daily range): BP systolic 120–168; BP diastolic 83–105; PULSE 63–103; RESP 10–20; TEMP 36.1–37.1; O2SAT 91–100; BMI 22.8; BMI 24.3
--- NOTE | 2022-08-15 | PATH_ITS ---
[facility] Accession Number: [id number] No. of containers..01 Tissue . 01 Material submitted: . sigmoid colon - SIGMOID COLON . 01 Diagnosis: Sigmoid Colon, Segmental Resection: Diverticulitis with pericolorectal abscess, serositis, and serosal fibrous adhesions. Diverticulosis. Negative for granulomas, dysplasia and malignancy. MRV 08/21/2022 1503 Local . 01 Electronically signed: . Olya Sneed MD, Pathologist NPI- [id number] . 01 Gross description: . The specimen is received in formalin labeled with the patient's name, , and sigmoid colon, and consists of an unoriented fragment of bowel measuring 11.3 cm in length by 2.5 cm in average diameter with anderson serosa with a roughened hemorrhagic area measuring 4.0 x 2.3 cm. The remaining serosa is smooth with attached adipose extending out to 4.2 cm. The stapled margins are differentially inked blue and black while the mesenteric margin is inked green. The mucosa is pink-anderson and velvety with normal appearing folds and no polyps or lesions identified. Sectioning reveals multiple diverticula measuring up to 1.5 cm in maximum depth with no perforations or defects grossly identified. Palpation of the adjacent adipose reveals ten anderson lymph node candidates ranging from 0.3 to 1.2 cm in greatest dimension. Sausage Meat Trimmer sections are submitted as follows: A1: Sausage Meat Trimmer blue and black margins in face. A2: Sausage Meat Trimmer green margin en face. A3-A4: Sausage Meat Trimmer diverticula. A5-A6: Hemorrhagic serosa. A7: Normal mucosa. A8: Single bisected lymph node candidate. A9: Three intact lymph node candidates. A10: Three intact lymph node candidates. A11: Three intact lymph node candidates. ([id number]) Additional sections of the firm, roughened serosa are submitted in cassettes A12-A5. ([id number]) /MRV 08/19/[address] [place] [address] . 01 Pathologist provided ICD-10: K57.80 . 01 CPT . 899011 Specimen Comment: A courtesy copy of this report has been sent to [phone] Performed at: 01 [facility] [address] [place] [address], [place], [place] [id number] MD Rai Galo MD Phone: [phone]
[2022-08-15 10:06] LABS: COVID19 -Nasal RAPID Negative (Negative)
--- NOTE | 2022-08-15 10:24 | PM.PREOP ---
Pre-operative Note COVID-19 COVID-19 status: Negative Criteria for continued procedure: Expected advancement of disease process Interval Note History & Physical reviewed/Exam performed by Physician: Yes Changes to H&P: No
[2022-08-15] MEDS: LACTATED RINGERS 1,000 ML 42 ML IV (11:16)
[2022-08-15] MEDS: CEFAZOLIN 2 GM/100 ML PREMIX 100 ML IV (12:22)
[2022-08-15] MEDS: ACETAMINOPHEN IV 1,000 MG/100 ML VIAL 400 MG IV (12:30)
--- NOTE | 2022-08-15 12:47 | SUR.OPER ---
Supine on padded OR bed, head on pillow, arms padded and tucked at sides, legs uncrossed, safety belt at thigh, tape over blanket over lower legs .
--- NOTE | 2022-08-15 12:47 | SUR.OPER ---
Supine on padded OR bed, head on pillow, arms padded and tucked at sides, legs IN LITHOTOMY
--- NOTE | 2022-08-15 14:08 | PM.OP.1 ---
Operative Date/Time/Diagnoses Date of procedure: 08/15/22 Time of procedure: 14:08 Pre-op diagnosis: History of diverticulitis with colovesicular fistula Post-op diagnosis: same Procedure & Clinicians Procedure: Exploratory laparotomy with sigmoid colon resection, primary repair of bladder. Intraoperative consult to Urology for stent placement due to concern for thermal burn of left ureter. Same procedure as scheduled: Yes Indications: Colovesical fistula Surgeon: Laura Clifford Unit Technician: Marcelo Pate Click Yes if Unassisted: No Anesthesia Type: General Operative Notes Findings: Short-segment sigmoid colon with chronic inflammation with fistula to the bladder approximately size of a nickel. Closure Type: primary Specimen(s): other (Sigmoid colon) Prosthetic devices, grafts, tissues, transplants, or devices: Left ureteral stent, Bright catheter Applied: drain(s) (19 Congolese abdominal drain) Estimated Blood Loss (mL): 50 Blood products transfused: none Procedure in detail: Preop diagnosis: Colovesical fistula Postop diagnosis: Same Operative procedure: Exploratory laparotomy with sigmoid colon resection and primary repair of colovesical fistula. Intraoperative consult to Dr. Lim for left ureteral stent due to thermal burn during procedure Surgeon: Hillary Clifford MD executive administrative assistant: NICOLE Rodriguez Findings: Colovesical fistula to sigmoid colon. Defect in the bladder proximally nickel size. Iatrogenic thermal burn to left ureter without evidence of transection or hydroureter. Procedure: Patient placed in a lithotomy position. Prepped and draped sterile fashion to expose his abdomen. Lower midline incision was created using electrocautery. Sigmoid colon quickly identified coming across the dome of the bladder as an inflammatory mass. Electrocautery and sharp dissection along with LigaSure device were used to separate the sigmoid colon from the bladder to reveal a bladder fistula the size of a nickel. During the process the ureter that was drawn into the inflammatory mass appeared to have sustained a thermal burn over the anterior 60%, however there was no hydroureter or extravasation of urine during the entire procedure. Consult initiated with urology that confirmed my suspicions that the safest way to proceed would be to place a stent this procedure over the area in question. Partial sigmoid colectomy taken down with electrocautery for mesenteric component. Into in staple anastomosis with EEA stapling device, air tested without evidence of leak. Anterior portion oversewn with interrupted 3-0 silk. Defect of the bladder was closed with a single layer Prolene 1-0. Bright will remain in place postoperatively. Abdomen was irrigated to a clear return and omentum was brought down across the exposed bowel tucking in into the area of bladder repair. Prior to that a 19 Congolese Jamil drain was placed into the rectal space and brought out in the right lower quadrant of the abdomen. Fascia was closed with a running looped 0 PDS. Skin was closed a running 4-0 Vicryl. Drain was sutured to the abdominal wall with a 2-0 silk suture. Patient was redraped and re-prepped for Dr. Lim to perform cysto and placement of left ureteral stent. Blood loss: 50 mL Specimen: Sigmoid colon. Complications: none Post-operative Condition: stable Disposition: PACU Plan for aftercare: Admit to acute care with Bright for a minimum of 5 days.
--- NOTE | 2022-08-15 14:42 | P.OP_ITS ---
Operative Date/Time/Diagnoses Date of procedure: 08/15/22 Time of procedure: 14:25 Pre-op diagnosis: 1. Left iatrogenic ureteral injury (thermal). 2. Colovesical fistula. Post-op diagnosis: same Procedure & Clinicians Procedure: 1. Cystoscopy/placement left ureteral stent (6 St Helenian by 20-32 cm multi-length). Same procedure as scheduled: Yes Indications: 1. Proximity to thermal surgical element and visual evidence of possible thermal injury approximating 50-60% of circumferential surface area. Surgeon: Macario Lim Click Yes if Unassisted: Yes Anesthesia Type: General Operative Notes Findings: 1. Urethra-normal caliber without annular stricture or lesion. 2. External sphincter-coapted with normal overlying urothelium. 3. Prostate-4 cm length with [id number] lateral lobe hyperplasia. 4. Bladder-normal appearing right ureteral orifice with clear efflux. Much of the left trigone left posterior and lateral wall were edematous and erythematous. The left ureteral orifice was displaced anteriorly and laterally due to mass effect. Closure Type: not applicable Specimen(s): none sent Applied: other (Six St Helenian 22-32 cm multi-length ureteral stent.) Estimated Blood Loss (mL): 0 Blood products transfused: none Procedure in detail: The patient was positioned in semi lithotomy and the lower abdomen, genitalia, and groin were prepped and draped in sterile fashion. The patient was already general anesthesia for preceding surgery for colovesical fistula per Dr. Clifford. The 22 [place] Helenian louise endoscope was then passed in the lower urinary tract with the findings as described above. A 0.35 hybrid wire was then selected and over this a 5 St Helenian [place] catheter was positioned for better distal control of the hybrid guidewire tip. Careful visual search was undertaken with the findings as described above. The left ureteral orifice was finally identified and the tip of the hybrid wire was insinuated in the orifice and then advanced proximally under direct and fluoroscopic guidance. A coil was formed in the upper left renal collecting system. The [place] catheter was backloaded off the hybrid guidewire. A 6 [place] by 22-32 cm multi-length stent was then selected and advanced over the hybrid guidewire under direct and fluoroscopic guidance. NO RETRIEVAL LINE WAS LEFT ATTACHED. Bladder was left partially filled and the louise endoscope removed. A 16 [place] Helenian Bright catheter was then inserted and placed to gravity drainage after the balloon was inflated 10 cc. The patient was then repositioned and is a find, awakened, transferred to [facility] in stable condition. Complications: none Post-operative Condition: stable Disposition: PACU Plan for aftercare: Admit to acute care.
--- NOTE | 2022-08-15 14:53 | P.CONS_ITS ---
History of Present Illness Consult details Date Patient Seen: 08/15/22 Time Patient Seen: 14:15 Chief complaint: Colon Resection Reason for consult: 1. Concern for thermal injury of left ureter. Requesting provider: Laura Clifford Narrative: The patient is a 56-year-old male underwent exploratory laparotomy sigmoid resection and takedown of colovesical fistula. In the course of surgery not sure Darrin raise concern of possible thermal injury to short segment of the anterior surface of the ureter in the distal 3rd. Estimated circumferential percentage was a proximally 60%. No extravasation was seen. Peristalsis was observe superior to this site hand inferior to the site of injury. Intraoperative consultation was requested. In an abundance of caution pre- emptive stent placement was recommended. Meds Home Medications and Allergies Home Medications Medication Instructions Recorded Confirmed Type amoxicillin 875 mg-potassium 1 tab PO BID #14 tabs 08/09/22 08/15/22 Rx clavulanate 125 mg tablet Allergies Allergy/AdvReac Type Severity Reaction Status Date / Time No Known Drug Allergies Allergy Verified 08/15/22 10:56 Review of Systems Review of Systems ROS: Yes All systems reviewed with the patient and are negative except as otherwise documented Exam Vital Signs (past 8 hours): - 08/15/22 11:02 Temperature 98.3 F Pulse Rate 83 Respiratory Rate 16 Blood Pressure 168/94 H Pulse Oximetry 98 Oxygen Delivery Method Room Air Oxygen Delivery Method Room Air Narrative Exam Narrative: Normal appearing adult circumcised male external genitalia. Objective Labs Labs: Laboratory Results - last 24 hr 08/15/22 09:43 SARS-CoV-2 (PCR) Negative PFSH Medical History BPH (benign prostatic hyperplasia) Methamphetamine abuse Opioid use disorder Surgical History History of facial surgery (2006) Family History Brother Age: 50 Mental health problem Mother Age: 73 Hypertension Asthma Social History household members: friend(s) Tobacco & Substance Use Smoking Status: Current every day smoker alcohol intake: current Assessment & Plan Assessment & Plan narrative: Assessment: 1. Iatrogenic thermal injury of left ureter. Depth or extent of injury impossible to assess in the acute setting. Plan: 1. The patient will be prepped and draped for intraoperative cystoscopy, possible retrograde pyelogram/placement left ureteral stent.
--- NOTE | 2022-08-15 15:18 | SUR.PHASEI ---
SBAR report at bedside to Kelly VIGIL
--- NOTE | 2022-08-15 15:19 | SUR.PHASEI ---
Dr duenas to bedside. viewed catheter output currently cranberry colored.
[2022-08-15] MEDS: HYDROMORPHONE 2 MG INJ IV ×4 (15:36→16:06)
[2022-08-15] MEDS: hydrOXYzine 50 MG/ML INJ IM (15:40)
--- NOTE | 2022-08-15 17:31 | PC.NURSE ---
Patient admitted to room 212, he had a colovesical fistula and had a stent placed to his l.ureter and a sigmoid collectomy. Patient has a carrillo drain placed with bloody drainage out and a childress with cranberry/red colored urine. He was given dilaudid down stairs in pacu and is resting comfortably. Patient recently got out of retirement. He used meth two days ago and had a drink within the last week. He denies pain and is sleeping.
[2022-08-15] MEDS: OXYCODONE IR 5 MG TABLET PO (18:14)
[2022-08-15] MEDS: CELECOXIB 200 MG CAPSULE PO ×2 (18:15→20:34)
[2022-08-15] MEDS: GABAPENTIN 300 MG CAPSULE PO ×2 (18:15→20:34)
[2022-08-15] MEDS: LACTATED RINGERS 1,000 ML 100 ML IV (18:15)
[2022-08-15] MEDS: LORazepam 2 MG/ML INJ 0.25 MG IV (20:34)
[2022-08-16 00:07] VITALS: BP 108/66; PULSE 64; RESP 18; TEMP 36.5; O2SAT 95
[2022-08-16] MEDS: LACTATED RINGERS 1,000 ML 100 ML IV (03:55)
[2022-08-16 08:37] VITALS: BP 119/68; PULSE 63; RESP 15; TEMP 36.7; O2SAT 99
[2022-08-16] MEDS: OXYCODONE IR 5 MG TABLET PO ×3 (09:45→21:04)
[2022-08-16] MEDS: GABAPENTIN 300 MG CAPSULE PO ×2 (09:45→21:04)
[2022-08-16] MEDS: CELECOXIB 200 MG CAPSULE PO ×2 (09:45→21:04)
[2022-08-16] MEDS: ONDANSETRON 4 MG/2 ML INJ IV (09:53)
--- NOTE | 2022-08-16 10:19 | P.PN_ITS ---
Subjective Subjective Date Patient Seen: 08/16/22 Time Patient Seen: 10:19 Interval history: Pain control an issue. nausea an issue Exam Vital Signs (past 8 hours): - 08/16/22 08:37 Temperature 98.0 F Pulse Rate 63 Respiratory Rate 15 Blood Pressure 119/68 Pulse Oximetry 99 Oxygen Flow Rate 0 Oxygen Delivery Method Room Air Oxygen Flow Rate 0 Narrative Exam Narrative: abdomen is tight, drain is serous/blood tinged. Bright has gross blood. All within expectations post op. [facility] Medical History BPH (benign prostatic hyperplasia) Methamphetamine abuse Opioid use disorder Surgical History History of facial surgery (2006) Family History Brother Age: 50 Mental health problem Mother Age: 73 Hypertension Asthma Social History household members: friend(s) Smoking Status: Current every day smoker alcohol intake: current Assessment & Plan Post-op Postoperative Procedures: Procedures Operation Date: 08/15/22 11:00 Actual Procedure Side Surgeon p Sigmoid Colectomy, COLOVESICAL FISTULA AND CYSOSCOPE AND PLACEMENT OF LEFT URETERAL STENT Laura Clifford MD Postoperative day: 1 Postoperative status: doing well and marginal pain control Postoperative status narrative: No complications at this stage. Postoperative plan narrative: Add Fentanyl patch at 25microgram x3 days and then stop. continue IVF Bright cath must stay in for 5 days post operative. Quality VTE Deep Vein Thrombosis/Pulmonary Embolism Present on Admission: No
[2022-08-16] MEDS: fentaNYL 25 MCG/PATCH TOP (11:27)
--- NOTE | 2022-08-16 12:25 | CM.DANOTE ---
Addendum entered by ELISE De La Rosa 08/16/22 14:50: CATARACT LENS GENERATOR dropped off previously discussed community resources of PCPs in [place] and homelessness resources in the area. Patient thanked CATARACT LENS GENERATOR. ROGERIO Original Note: DCP: Patient is a 56 yo m here INPT post colon resection. Patient is currently unhoused and reports having the option to stay with a friend, Bernard, for the next month or so after d/c from here. CM team entered room and introduced self and roles. Patient appeared A/Ox4 but appeared drowsy from medication. Patient reported being independent with ADLs and reported being mobile at baseline. PPatient has bike in room that he uses as main form of transportation. Per surgeon note, it is anticipated patient will remain in acute care for approximately 5 days with childress/drain. Per notes, patient is currently homeless however, patient reported to CATARACT LENS GENERATOR that he does have a place to stay for a month with friend (Bernard). Insurance: 1) Press 2) Medicaid PCP: None at this time. CM team will provide list for follow up appointment. Plan: CM team will continue to follow. Patient going to friend's (Bernard) at time of d/c, and can stay there for a month. CM team will provide list of housing resources prior to d/c. ELISE De La Rosa Discharge Planning/Care Management CM Discharge Assessment Start: 08/16/22 12:11 Freq: Status: Active Protocol: Document 08/16/22 12:12 (Rec: 08/16/22 12:23 [id number]) Discharge Planning Assessment Assigned Net Ui Developer ELISE De La Rosa Advance Directives? No History Provided By Patient,Medical Record Has Patient been admitted in last 30 Yes days? Comment Here 5/10 Prior Living Arrangements Homeless Comment Patient reports he can stay with a friend, Bernard, for about a month. Household Members friend(s) Comment Public transportation or rides his bike. Independent with ADL's Yes Is patient alert and oriented? Yes Discharge Plan Homeless Longterm Transportation Arrangement Patient currently has bike in his room. Plans to bike away from the hospital. Referrals Initiated None needed Whiteboard Updated in Patient Room with Yes name and ext. # of Net Ui Developer Review Status In Process Next Review Type Continued Stay Review Pre-Anesthesia Assessment Start: 08/10/22 08:35 Freq: Status: Active Protocol: Document 08/14/22 11:54 CAB (Rec: 08/10/22 08:50 CAB [id number]) Pre-Anesthesia Assessment Patient Information Reviewed Via Chart Review Primary Care Provider Abel Foster Seen Specialist in Last 12 Months Yes Specialist Seen Emergency,General surgeon Primary Language Austrian Preferred Language Austrian Certified Medication Aide Required No Height 172.72 cm Weight 68.039 kg Body Mass Index (BMI) 22.8 Anesthesia Review Requested No Dermatology Teacher No alcohol intake current alcohol intake frequency 0-2 drinks per day Smoking Status Current every day smoker Substance Use Type former substance user,opiates, methamphetamine Patient is completely paralyzed or No completely immobile Mental Status Oriented to own ability Hx Sleep Apnea No Currently Taking a Beta Christa No Anti-Coagulant Therapy No Has a Electronic Sensing Equipment Assembler No Cardiac Testing No Hx Pacemaker/ICD No Pacemaker Rep Required? No Gastrointestinal Symptoms Blood in Stool Comment Pneumaturia Diabetes No Received a COVID vaccine? No Marital Status Unknown Comment Recently released from penitentiary, last record shows living in his truck Patient Discharge Plan Description Return Home Do You Have Any Spiritual Beliefs That No May Affect Your HC Choices? Do You Have Any Cultural Practices That No May Affect Your HC Choices? Advance Directives? No Power of Corrugated Fastener Driver No
[2022-08-16] MEDS: HYDROMORPHONE 2 MG INJ IV (14:01)
[2022-08-16 16:23] VITALS: BP 117/73; PULSE 54; RESP 16; TEMP 36.9; O2SAT 96
[2022-08-16 19:00] VITALS: BP 128/78; PULSE 72; RESP 16; TEMP 36.9; O2SAT 97
[2022-08-17 08:36] VITALS: BP 127/81; PULSE 62; RESP 20; TEMP 36.2; O2SAT 98
[2022-08-17] MEDS: GABAPENTIN 300 MG CAPSULE PO ×2 (09:00→21:28)
[2022-08-17] MEDS: CELECOXIB 200 MG CAPSULE PO ×2 (09:00→21:28)
[2022-08-17] MEDS: OXYCODONE IR 5 MG TABLET PO ×4 (09:02→21:28)
[2022-08-17 12:33] VITALS: BP 114/63; PULSE 62; RESP 20; TEMP 36.2; O2SAT 95
--- NOTE | 2022-08-17 13:09 | PM.PNPO.1 ---
Subjective Subjective Date Patient Seen: 08/17/22 Time Patient Seen: 13:10 Interval history: Postop day 2 status post open sigmoid colectomy for colovesicular fistula. Overall doing fairly well. He is ambulating and tolerating a diet. Positive flatus Exam Vital Signs (past 8 hours): - 08/17/22 08:36 08/17/22 12:33 Temperature 97.2 F L 97.2 F L Pulse Rate 62 62 Respiratory Rate 20 20 Blood Pressure 127/81 114/63 Pulse Oximetry 98 95 Oxygen Flow Rate 0 0 Oxygen Delivery Method Room Air Oxygen Flow Rate 0 Narrative Exam Narrative: General adult man alert oriented no acute distress Abdomen appropriately tender to palpation. Midline incision clean dry intact with Steri-Strips in place. Bright catheter minimal hematuria [facility] Medical History BPH (benign prostatic hyperplasia) Methamphetamine abuse Opioid use disorder Surgical History History of facial surgery (2006) Family History Brother Age: 50 Mental health problem Mother Age: 73 Hypertension Asthma Social History household members: friend(s) Smoking Status: Current every day smoker alcohol intake: current Assessment & Plan Post-op Postoperative Procedures: Procedures Operation Date: 08/15/22 11:00 Actual Procedure Side Surgeon p Sigmoid Colectomy, COLOVESICAL FISTULA AND CYSOSCOPE AND PLACEMENT OF LEFT URETERAL STENT Laura Clifford MD Postoperative status narrative: 56-year-old man postoperative day 2 status post sigmoid colectomy. Overall progressing well. -regular diet -DC IV fluids -DC home tomorrow with Bright catheter in place for 1 week -Will need CT cystogram prior to catheter removal Quality VTE Deep Vein Thrombosis/Pulmonary Embolism Present on Admission: No
[2022-08-17 22:43] VITALS: BP 126/72; PULSE 68; RESP 20; TEMP 37.1; O2SAT 96
[2022-08-18 07:40] VITALS: BP 133/79; PULSE 66; RESP 18; TEMP 36.4; O2SAT 98
[2022-08-18] MEDS: OXYCODONE IR 5 MG TABLET PO ×3 (09:41→15:49)
[2022-08-18] MEDS: GABAPENTIN 300 MG CAPSULE PO (09:41)
[2022-08-18] MEDS: CELECOXIB 200 MG CAPSULE PO (09:42)
--- NOTE | 2022-08-18 12:32 | PM.DS.1 ---
History of Present Illness History of Present Illness Date Patient Seen: 08/18/22 Time Patient Seen: 12:33 Chief complaint: Colon Resection Narrative: 56-year-old man with presented to the hospital Aug 09 2022 with a colovesicular fistula. He was taken to the operating room for an elective sigmoid colectomy Discharge Providers Provider Date of admission: 08/15/22 09:13 Discharge Date: 08/18/22 Primary care physician: Doctor Slick MD Consults: 08/15/22 17:31 Consult to Merchandise Clerk Routine Comment: Discharge provider: eMd Muro MD Summary Hospital Course Discharge Diagnosis: Colovesicular fistula Iatrogenic ureter injury Tobacco use Hospital Course: Patient underwent an open sigmoid colectomy August 09, 2022 for complicated diverticulitis with colovesicular fistula. Operation was significant for an iatrogenic left ureter injury and urology placed a ureteral stent. His postoperative course was unremarkable. At discharge he is ambulatory, pain is well controlled, his bowels are functioning he is tolerating a diet and his vital signs are within normal limits. He will be discharged home with Bright catheter in place for 1 week at which point he will undergo a CT cystogram and subsequent catheter removal of the imaging is normal. Exam Vital Signs (past 8 hours): - 08/18/22 07:40 Temperature 97.6 F Pulse Rate 66 Respiratory Rate 18 Blood Pressure 133/79 Pulse Oximetry 98 Oxygen Flow Rate 0 Oxygen Delivery Method Room Air Oxygen Flow Rate 0 Narrative Exam Narrative: General adult man alert oriented no acute distress Chest nonlabored respiration Abdomen midline incision is clean dry intact, appropriately tender to palpation. Extremities warm well perfused [facility] Medical History BPH (benign prostatic hyperplasia) Methamphetamine abuse Opioid use disorder Surgical History History of facial surgery (2006) Family History Brother Age: 50 Mental health problem Mother Age: 73 Hypertension Asthma Social History household members: friend(s) Smoking Status: Current every day smoker alcohol intake: current Discharge Plan Discharge Plan Patient Disposition: Home Provider Discharge Comment: -Okay to shower tomorrow. -Do not submerge wounds in water until seen in follow-up. -No lifting >20 lbs x 4 weeks. -Walking only for exercise for 4 weeks. -No driving while taking narcotics. -surgical office will contact you regarding the date and time for the CT cystogram next week and the surgical clinic follow-up appointment Discharge orders & Medications Prescriptions: New ibuprofen 200 mg tablet 400 mg PO Q6H Qty: 60 0RF docusate sodium [Colace] 100 mg capsule 100 mg PO BID Qty: 30 0RF oxycodone 5 mg tablet 5 mg PO Q6H PRN (Reason: pain) Qty: 20 0RF acetaminophen [Tylenol] 325 mg capsule 650 mg PO QID PRN (Reason: pain) Qty: 60 0RF ondansetron 4 mg tablet,disintegrating 4 mg PO Q8H Qty: 10 0RF Discontinued amoxicillin-pot clavulanate 875-125 mg Tablet 1 tab PO BID Qty: 14 0RF Medication counseling provided by Pharmacist: Yes Follow up/Referrals: Doctor Kruger MD [Primary Care Provider] - (*CT Scan scheduled at [facility] on Wednesday, August 23 at 12:45. * After CT Scan, you will need to go to [facility] (same office you did Pre-op) Appt on Wednesday, August 23 at 1:45 with . [phone]) Diet/Activity/Treatments Diet: Diet as Tolerated Skin/Wound/Dressing Care Report to your healthcare provider any signs of infection, such as:: chills, fever, increased pain, unusual drainage and unusual redness Visit Report/Discharge Packet Stand Alone Forms: Patient Portal/API, Stroke Signs & Symptoms Discharge Data Primary Care Provider: Doctor Slick Quality VTE Deep Vein Thrombosis/Pulmonary Embolism Present on Admission: No
[2022-08-18 12:38] VITALS: BP 131/82; PULSE 61; RESP 16; TEMP 36.7; O2SAT 97
--- NOTE | 2022-08-18 14:56 | CM.DPC ---
DCP Discharge Home Per MD, pt is medically stable to d/c home today with childress and close outpt f/u. Per RN, no concerns at this time other than pt does not have his own secure housing. SW met bedside with pt and explained role and he confirms that his friend Bernard will provide transport at d/c and he can stay with him for about a month and will help get pt's bike from hospital to his house. Pt was given the list for PCP and housing resources and pt states his insurance should cover any Rx and his friend Bernard will help financially if needed. Pt does not anticipate any further needs at this time. Plan: Patient to d/c today via friend Bernard STRINGER and will stay with friend and have close outpt f/u and was given community resources. ELISE Dunlap
== END 2022-08-18 15:50 | disposition home or self-care (01) | DRG 441 ==
PROVIDERS: Admitting Provider Surgery; Family Provider Family Medicine; Referring Provider Surgery; Visit Provider Surgery
PROC: 0DTN0ZZ Resection of Sigmoid Colon, Open Approach (ICD-10-PCS; CPT 44140; principal; 2022-08-15 11:00)
DX: N32.1 Vesicointestinal fistula (principal); N99.81 Other intraoperative complications of genitourinary system; T28.3XXA Burn of internal genitourinary organs, initial encounter; F17.200 Nicotine dependence, unspecified, uncomplicated; Z20.822 Contact with and (suspected) exposure to COVID-19
CPT/HCPCS: 44140; 44661; 52332; 76000; 87635; C9803; J0131; J0690; J1100; J1170; J2060; J2250; J2405; J2704; J3010; J3410

== ENCOUNTER → 2022-08-23 11:47 | Outpatient (CLI) | payer OTHER, MEDICAID, SELFPAY ==
[2022-08-15 17:18] VITALS: BMI 24.3
--- NOTE | 2022-08-23 11:48 | DI.CT.S_ITS ---
PROCEDURE: CT CYSTOGRAM INDICATIONS: sp sigmoidectomy for colevesicular fistula TECHNIQUE: Both before and after gravity instillation of 10% Isovue contrast solution into the bladder through a Bright catheter, 5 mm axial images acquired from the bladder dome to the symphysis. 5 mm thick coronal and sagittal reformats were acquired. For radiation dose reduction, the following was used: automated exposure control, adjustment of mA and/or kV according to patient size. COMPARISON: [facility], CT, CT ABDOMEN PELVIS W CON, 08/09/2022, 0:33. FINDINGS: Image quality: Good Genitourinary: A Bright is in place on precontrast images. With contrast installation, no extravasation of contrast is identified. There are postsurgical changes of the sigmoid colon. There is a small amount of suspected contrast adjacent to the suture lines and adjacent to the left distal ureteral stent. See image 06/26, 07/30. This appears to move on delayed images. This is not definitely seen on precontrast images. The distal ureteral stent on the left is seen, with pigtail in the bladder. Partially seen kidneys with a nonobstructing stone at the right lower pole. Peritoneum and bowel: No distinct abscess on these images without intravenous contrast. Above average fecal loading. Nodes and vessels: Not well assessed on this study. There are prominent lymph nodes which may be reactive in this clinical setting. Abdominal wall: Postsurgical changes. Bones: Degenerative changes. No acute or suspicious abnormality. IMPRESSION: Questionable small amount of contrast leaking from the left distal ureter (07/30, 06/26). This hyperdensity is not seen on images before contrast installation. This hyperdensity appears to shift position on more delayed imaging. No bladder extravasation identified Postsurgical changes. Other findings are not well assessed on noncontrast limited cystogram CT. Dictated by: Yaya Kennedy M.D. on 08/23/2022 at 14:33 Approved by: Yaya Kennedy M.D. on 08/23/2022 at 14:41
== END ==
PROVIDERS: Family Provider Family Medicine; Referring Provider Surgery; Visit Provider Surgery
DX: Z90.49 Acquired absence of other specified parts of digestive tract (principal); T81.49XA Infection following a procedure, other surgical site, initial encounter
CPT/HCPCS: 72194; 99213

== ENCOUNTER 2022-08-25 19:58 | Observation (INO) | payer OTHER, MEDICAID, SELFPAY ==
[2022-08-15 17:18] VITALS: BMI 24.3
[2022-08-25 20:00] VITALS: BP 155/80; PULSE 75; RESP 15; TEMP 37.2; O2SAT 94; BMI 22.0
--- NOTE | 2022-08-25 20:20 | DI.CT.S_ITS ---
PROCEDURE: CT CHEST ABD PEL W CON INDICATIONS: eval for midline surgical incision abscess TECHNIQUE: After the administration of oral and intravenous contrast, axial sections acquired from the supraclavicular neck to the pubic symphysis. Coronal and sagittal reformats were performed. For radiation dose reduction, the following was used: automated exposure control, adjustment of mA and/or kV according to patient size. COMPARISON: [facility], CT, CT ABDOMEN PELVIS W CON, 08/09/2022, 0:33. [facility], CT, ABDOMEN^GU4_CT_CYSTOGRAM (ADULT), 08/23/2022, 13:00. FINDINGS: Image quality: Excellent. CHEST: Lower Neck: No enlarged lymph nodes. Thyroid: Within normal limits. Axillae: No enlarged lymph nodes. Chest Wall: Unremarkable. Lungs and Airways: Extensive left-sided infiltrates are seen, which are worst involving the left upper lobe. Mild patchy right lung infiltrates are also seen. Pleura: No pneumothorax or pleural effusions. Heart: Heart size is normal. No pericardial effusion. Thoracic Vessels: The aorta and pulmonary arteries demonstrate normal size. Mediastinum and Eleanor: No enlarged lymph nodes. Esophagus: No wall thickening. No hiatal hernia. ABDOMEN: Liver: Unremarkable. Gallbladder: Unremarkable. Biliary ducts: Unremarkable. Pancreas: Unremarkable. Spleen: Unremarkable. Adrenal Glands: Unremarkable. Kidneys and Ureters: There is a left-sided double-J stent, with the ends of the stent seen in the expected locations. At the time of this study, no hi extravasation urine can be seen. The kidneys demonstrate normal size and enhance symmetrically. There is no hydronephrosis. Stomach and Bowel: A rectosigmoid anastomotic staple line can be seen. Peritoneum: Mild free fluid can be seen within the peritoneal cavity, yet without a loculated abscess. No free air is seen. Ventral Wall: Along the anterior abdominal wall along the midline, there is generalized inflammatory change. Likely phlegmon can be seen, yet without a hi drainable abscess. Abdominal Nodes: No retroperitoneal or mesenteric adenopathy by size criteria. Vessels: Aorta and inferior vena cava are normal in size. PELVIS: Pelvic Organs: Bilateral hydroceles are incidentally noted. Potential right-sided varicocele. Bladder: A Bright catheter is seen, which decompresses the bladder. Pelvic Nodes: No enlarged lymph nodes. Miscellaneous: No inguinal hernias are seen. Bones: Mild dextroconvex scoliotic curvature is seen. Lumbar spine degenerative changes are seen, with milder degenerative changes seen elsewhere. IMPRESSION: Along the anterior abdominal wall, there is generalized inflammatory change, with presumed phlegmon, yet without a hi drainable abscess. Bilateral pulmonary infiltrates are seen, left worse than right. Left-sided double-J stent. No hi extravasation of urine can be seen at the time of this study. There is a rectosigmoid anastomotic staple line, without a local complication seen. A mild amount free intraperitoneal fluid is seen, without free air or abscess. Additional findings: Dextroconvex scoliotic curvature Lumbar spine degenerative change Bright catheter Bilateral hydroceles Potential right-sided scrotal varicocele Dictated by: Angel Conte M.D. on 08/25/2022 at 21:05 Approved by: Angel Conte M.D. on 08/25/2022 at 21:10
--- NOTE | 2022-08-25 20:25 | ED_ITS ---
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 He has a Bright catheter in place. Was seen a couple days ago in follow-up with general surgery. Was started on Augmentin for skin infection. He has been on this for the past 3 days. He had another appointment this morning with another general surgeon who recommended that he come for a CT scan to evaluate for an abscess. He states he has been taking the antibiotics as directed. He is having abdominal discomfort. His Bright catheter is dr tabares. Denies fevers. Related Data Previous Rx's Medication Instructions Recorded acetaminophen 325 mg capsule 650 mg PO QID PRN pain #60 caps 08/18/22 (Tylenol) docusate sodium 100 mg capsule 100 mg PO BID #30 caps 08/18/22 (Colace) ibuprofen 200 mg tablet 400 mg PO Q6H #60 tabs 08/18/22 ondansetron 4 mg disintegrating 4 mg PO Q8H #10 tabs 08/18/22 tablet oxycodone 5 mg tablet 5 mg PO Q6H PRN pain #20 tabs 08/18/22 amoxicillin 500 mg-potassium 1 tab PO Q12H #20 tabs 08/23/22 clavulanate 125 mg tablet (Augmentin) Allergies Allergy/AdvReac Type Severity Reaction Status Date / Time No Known Drug Allergies Allergy Verified 08/25/22 20:06 Review of Systems Review of Systems ROS Unobtainable: All systems reviewed & are unremarkable except as noted in HPI and below Patient History Medical History BPH (benign prostatic hyperplasia) Methamphetamine abuse Opioid use disorder Surgical History History of facial surgery (2006) Family History Brother Age: 50 Mental health problem Mother Age: 73 Hypertension Asthma Social History household members: friend(s) Smoking Status: Current every day smoker alcohol intake: current Smoking Status: Current every day smoker alcohol intake frequency: 0-2 drinks per day Substance Use Type: former substance user, opiates and methamphetamine Exam Initial Vital Signs Initial Vital Signs: Vital Signs Temperature 99.0 F 08/25/22 20:00 Pulse Rate 75 08/25/22 20:00 Respiratory Rate 15 08/25/22 20:00 Blood Pressure 155/80 H 08/25/22 20:00 Pulse Oximetry 94 08/25/22 20:00 Oxygen Delivery Method Room Air 08/25/22 20:00 Const General: cooperative, comfortable and No ill appearing HENMT Head: normal to inspection and normocephalic Resp Effort & Inspection: normal respiratory effort Cardio Rate: regular rate GI Inspection: non-distended Palpation: tender Skin Other: Area of redness around the well healed midline surgical incision. Extrem General: normal to inspection and capillary refill normal Course Orders Ordered: ED Orders 08/25/22 20:20 CT chest abd pel w con Stat 08/25/22 20:33 Basic Metabolic Panel Stat Complete Blood Count AUTO DIFF Stat Lactate (Lactic Acid) Stat 08/25/22 22:26 Consult to General Surgery Stat Blood Culture Stat Sodium Chloride (Normal Saline 0.9%) 1,000 mls @ 125 mls/hr IV CONT ROSA Last Admin: 08/25/22 22:42 Dose: 125 mls/hr Documented By: EMY Discontinued Medications Piperacillin Sod/Tazobactam (Sod 4.5 gm/ Sodium Chloride) 100 mls @ 200 mls/hr IV NOW ONE Stop: 08/25/22 22:26 Last Admin: 08/25/22 22:42 Dose: 200 mls/hr Documented By: EMY Vital Signs Vital signs: Vital Signs - 8 hr 08/25/22 20:00 08/25/22 21:07 Temperature 99.0 F Pulse Rate 75 86 Respiratory Rate 15 22 Blood Pressure 155/80 H 117/73 Pulse Oximetry 94 94 Oxygen Delivery Method Room Air Room Air MDM - Skin/Abscess/Foreign Bdy Medical Records Attestation: I reviewed the patient's medical records. Lab Data Attestation: I reviewed the patient's lab results. 08/25/22 20:33 08/25/22 20:33 Labs: Lab Results 08/25/22 08/25/22 08/25/22 Range/Units 20:33 20:33 20:33 WBC 19.6 H (4.5-11.0) X10^3/uL RBC 2.89 L (4.5-5.9) X10^6/uL Hgb 8.4 L (13.5-17.5) g/dL Hct 25.3 L (41-53) % MCV 87.7 (80-100) fL MCH 29.0 (26-34) PG MCHC 33.1 (30-36) % RDW 15.1 H (11.6-14.8) % Plt Count 399 (150-400) X10^3/uL Neut % (Auto) 87.5 H (50-75) % Lymph % (Auto) 6.2 L (25-40) % [place] % (Auto) 4.6 (3-14) % Eos % (Auto) 1.1 L (2-4) % Baso % (Auto) 0.6 (0-2) % Neut # (Auto) 37270 H (2057-1066) /uL Lymph # (Auto) 1200 (2287-4297) /uL [place] # (Auto) 900 (0-900) /uL Eos # (Auto) 200 (0-450) /uL Baso # (Auto) 100 (0-100) /uL Sodium 134 L (137-145) mmol/L Potassium 4.0 (3.4-5.1) mmol/L Chloride 97 L (98-107) mmol/L Carbon Dioxide 31 (22-32) mmol/L BUN 12 (9-20) mg/dL Creatinine 0.55 L (0.66-1.25) mg/dL Estimated GFR > 60 (>60) mL/min BUN/Creatinine Ratio 21.8 (6-22) Glucose 138 H (70-100) mg/dL Lactate 0.8 (0.7-2.1) mmol/L Calcium 8.3 L (8.4-10.2) mg/dL Imaging Data CT scan - abdomen/pelvis: Radiologist's Impression: PROCEDURE:? CT CHEST ABD PEL W CON ? INDICATIONS:? eval for midline surgical incision abscess ? TECHNIQUE:? After the administration of oral and intravenous contrast, axial sections acquired from the supraclavicular neck to the pubic symphysis.? Coronal and sagittal reformats were performed.? For radiation dose reduction, the following was used:? automated exposure control, adjustment of mA and/or kV according to patient size.? ? COMPARISON: ? [facility], CT, CT ABDOMEN PELVIS W CON, 08/09/2022, 0:33.? [facility], CT, ABDOMEN^[id number] (ADULT), 08/23/2022, 13:00. ? FINDINGS:? Image quality:? Excellent.? ? CHEST: Lower Neck: No enlarged lymph nodes.? Thyroid: Within normal limits. Axillae: No enlarged lymph nodes. Chest Wall:? Unremarkable.? ? Lungs and Airways:? Extensive left-sided infiltrates are seen, which are worst involving the left upper lobe.? Mild patchy right lung infiltrates are also seen. Pleura: No pneumothorax or pleural effusions.? ? Heart: Heart size is normal.? No pericardial effusion. Thoracic Vessels: The aorta and pulmonary arteries demonstrate normal size.? Mediastinum and Eleanor: No enlarged lymph nodes.? Esophagus: No wall thickening. No hiatal hernia. ? ? ABDOMEN: Liver:? Unremarkable.? ? Gallbladder:? Unremarkable.? ? Biliary ducts:? Unremarkable.? ? Pancreas:? Unremarkable.? ? Spleen:? Unremarkable.? ? Adrenal Glands:? Unremarkable.? ? Kidneys and Ureters:? There is a left-sided double-J stent, with the ends of the stent seen in the expected locations.? At the time of this study, no hi extravasation urine can be seen. The kidneys demonstrate normal size and enhance symmetrically.? There is no hydronephrosis.? ? Stomach and Bowel:? A rectosigmoid anastomotic staple line can be seen. Peritoneum:? Mild free fluid can be seen within the peritoneal cavity, yet without a loculated abscess.? No free air is seen. ? Ventral Wall:? Along the anterior abdominal wall along the midline, there is generalized inflammatory change.? Likely phlegmon can be seen, yet without a hi drainable abscess. Abdominal Nodes:? No retroperitoneal or mesenteric adenopathy by size criteria.? Vessels:? Aorta and inferior vena cava are normal in size.? ? PELVIS: Pelvic Organs:? Bilateral hydroceles are incidentally noted.? Potential right- sided varicocele. Bladder:? A Bright catheter is seen, which decompresses the bladder.? Pelvic Nodes: No enlarged lymph nodes.? Miscellaneous: No inguinal hernias are seen. ? ? ? Bones:? Mild dextroconvex scoliotic curvature is seen.? Lumbar spine degenera tive changes are seen, with milder degenerative changes seen elsewhere.? ? IMPRESSION:? Along the anterior abdominal wall, there is generalized inflammatory change, with presumed phlegmon, yet without a hi drainable abscess. ? Bilateral pulmonary infiltrates are seen, left worse than right. ? Left-sided double-J stent.? No hi extravasation of urine can be seen at the time of this study. ? There is a rectosigmoid anastomotic staple line, without a local complication seen. ? A mild amount free intraperitoneal fluid is seen, without free air or abscess. ? ? ? Additional findings:? Dextroconvex scoliotic curvature Lumbar spine degenerative change Bright catheter Bilateral hydroceles Potential right-sided scrotal varicocele MDM Narrative Medical decision making narrative: Patient has an obvious cellulitis around the surgical incision in the midline of his abdomen. There was no dehiscence of the incision. He does have leukocytosis. Is not tachycardic or febrile. CT scan shows no drainable abscess but definitely has inflammatory changes and phlegmon. Discussed the case with Dr. Gomez on-call for General surgery. We will admit for further evaluation and IV antibiotics. Blood cultures were obtained however the patient has been on antibiotics for the past couple days. Discharge Plan Departure Patient Disposition: Admitted As Inpatient Clinical Impression: Post-operative infection, Anemia Admit Date/Time: 08/25/22 22:27 Admit Provider: Med Muro
[2022-08-25 20:40] LABS: Add Manual Diff / Slide Review NO; Basophils Absolute Auto 100 /uL (0-100); Basophils Percent Auto 0.6 % (0-2); Eosinophils Absolute Auto 200 /uL (0-450); Eosinophils Percent Auto 1.1 % (2-4); Hematocrit 25.3 % (41-53); Hemoglobin 8.4 g/dL (13.5-17.5); Lymphocytes Absolute Auto 1200 /uL (1100-4500); Lymphocytes Percent Auto 6.2 % (25-40); Mean Corpuscular HGB Conc 33.1 % (30-36); Mean Corpuscular Volume 87.7 fL (80-100); Monocytes Absolute Auto 900 /uL (0-900); Monocytes Percent Auto 4.6 % (3-14); Neutrophils Absolute Auto 17200 /uL (1500-7000); Neutrophils Percent Auto 87.5 % (50-75); Platelet Count 399 X10^3/uL (150-400); Red Blood Cell Count 2.89 X10^6/uL (4.5-5.9); Red Cell Distribution Width 15.1 % (11.6-14.8); White Blood Cell Count 19.6 X10^3/uL (4.5-11.0)
[2022-08-25 20:53] LABS: BUN Creatinine Ratio 21.8 (6-22); Blood Urea Nitrogen 12 mg/dL (9-20); Calcium 8.3 mg/dL (8.4-10.2); Carbon Dioxide 31 mmol/L (22-32); Chloride 97 mmol/L (98-107); Estimated Glomerular Filt Rate > 60 mL/min (>60); Glucose 138 mg/dL (70-100); HEMOLYSIS < 15 (0-50); Sodium 134 mmol/L (137-145)
[2022-08-25 21:07] VITALS: BP 117/73; PULSE 86; RESP 22; O2SAT 94
[2022-08-25] MEDS: SODIUM CHLORIDE 0.9% 1,000 ML 125 ML IV (22:42)
[2022-08-25] MEDS: PIPERACILLIN/TAZO 4.5 GM in SODIUM CHLORIDE 0.9% 100 ML IV (22:42)
[2022-08-25 22:45] VITALS: BP 117/73; PULSE 63; RESP 18; TEMP 36.9; O2SAT 98
[2022-08-25 22:45] LABS: Lactate (Lactic Acid) 0.8 mmol/L (0.7-2.1)
[2022-08-25 23:40] VITALS: BP 127/75; PULSE 75; RESP 20; TEMP 36.1; O2SAT 98
[2022-08-25 23:42] VITALS: BMI 22.0
[2022-08-26] VITALS: O2SAT 92
[2022-08-26] MEDS: PIPERACILLIN/TAZO 3.375 GM in SODIUM CHLORIDE 0.9% 100 ML IV ×2 (03:00→09:45)
[2022-08-26 03:44] LABS: Influenza A - CEPHEID Flu A NEGATIVE (NEGATIVE); Influenza B - CEPHEID Flu B NEGATIVE (NEGATIVE)
[2022-08-26 03:48] LABS: COVID-19 CEPHEID 4-PLEX PCR Negative (Negative)
[2022-08-26 04:55] VITALS: BP 120/64; PULSE 48; RESP 17; TEMP 35.7; O2SAT 99
[2022-08-26 06:00] VITALS: O2SAT 94
[2022-08-26 07:35] VITALS: O2SAT 95
[2022-08-26] MEDS: ACETAMINOPHEN 325 MG TABLET 650 MG PO (09:02)
[2022-08-26 11:32] VITALS: BP 115/70; PULSE 67; RESP 18; TEMP 36.7; O2SAT 99
--- NOTE | 2022-08-26 12:09 | PM.HP.1 ---
History of Present Illness History of Present Illness Date Patient Seen: 08/26/22 Time Patient Seen: 12:09 Chief complaint: Abscess at surgery site Narrative: Carlos is a 56-year-old man who had a sigmoid colon resection and repair of a left ureteral injury 11 days ago. He developed cellulitis around his lower midline incision which did not respond immediately to oral antibiotics. He was told to go to the emergency room yesterday and was admitted. IV antibiotics were started and he has had significant improvement in his cellulitis. He has had no drainage from his wound. [facility] Medical History BPH (benign prostatic hyperplasia) Methamphetamine abuse Opioid use disorder Surgical History History of facial surgery (2006) Family History Brother Age: 50 Mental health problem Mother Age: 73 Hypertension Asthma Social History household members: friend(s) Smoking Status: Current every day smoker alcohol intake: current Meds Home Medications and Allergies Home Medications Medication Instructions Recorded Confirmed Type acetaminophen 325 mg capsule 650 mg PO QID PRN pain #60 caps 08/18/22 08/25/22 Rx (Tylenol) docusate sodium 100 mg capsule 100 mg PO BID #30 caps 08/18/22 08/25/22 Rx (Colace) ibuprofen 200 mg tablet 400 mg PO Q6H #60 tabs 08/18/22 08/25/22 Rx ondansetron 4 mg disintegrating 4 mg PO Q8H #10 tabs 08/18/22 08/25/22 Rx tablet oxycodone 5 mg tablet 5 mg PO Q6H PRN pain #20 tabs 08/18/22 08/25/22 Rx amoxicillin 500 mg-potassium 1 tab PO Q12H #20 tabs 08/23/22 08/25/22 Rx clavulanate 125 mg tablet (Augmentin) Allergies Allergy/AdvReac Type Severity Reaction Status Date / Time No Known Drug Allergies Allergy Verified 08/25/22 20:06 Exam Vital Signs (past 8 hours): - 08/26/22 04:55 08/26/22 06:00 08/26/22 11:32 Temperature 96.2 F L 98.1 F Pulse Rate 48 L 67 Respiratory Rate 17 18 Blood Pressure 120/64 115/70 Pulse Oximetry 99 94 99 Oxygen Delivery Method Room Air Oxygen Flow Rate 0 Oxygen Delivery Method Room Air Oxygen Flow Rate 0 Narrative Exam Narrative: Abdomen soft Significantly decreased low midline periwound cellulitis compare to 3 days ago No wound drainage and minimal tenderness Bright in place Objective Labs 08/25/22 20:33 08/25/22 20:33 Labs: Laboratory Results - last 24 hr 08/25/22 08/25/22 08/25/22 20:33 20:33 20:33 WBC 19.6 H RBC 2.89 L Hgb 8.4 L Hct 25.3 L MCV 87.7 MCH 29.0 MCHC 33.1 RDW 15.1 H Plt Count 399 Neut % (Auto) 87.5 H Lymph % (Auto) 6.2 L [place] % (Auto) 4.6 Eos % (Auto) 1.1 L Baso % (Auto) 0.6 Neut # (Auto) 62855 H Lymph # (Auto) 1200 [place] # (Auto) 900 Eos # (Auto) 200 Baso # (Auto) 100 Sodium 134 L Potassium 4.0 Chloride 97 L Carbon Dioxide 31 BUN 12 Creatinine 0.55 L Estimated GFR > 60 BUN/Creatinine Ratio 21.8 Glucose 138 H Lactate 0.8 Calcium 8.3 L SARS-CoV-2 (PCR) Influenza A (RT-PCR) Influenza B (RT-PCR) Blood Type Antibody Screen 08/25/22 08/26/22 23:13 02:55 WBC RBC Hgb Hct MCV MCH MCHC RDW Plt Count Neut % (Auto) Lymph % (Auto) [place] % (Auto) Eos % (Auto) Baso % (Auto) Neut # (Auto) Lymph # (Auto) [place] # (Auto) Eos # (Auto) Baso # (Auto) Sodium Potassium Chloride Carbon Dioxide BUN Creatinine Estimated GFR BUN/Creatinine Ratio Glucose Lactate Calcium SARS-CoV-2 (PCR) Negative Influenza A (RT-PCR) Flu a negative Influenza B (RT-PCR) Flu b negative Blood Type O Positive Antibody Screen Negative Assessment & Plan Assessment and plan (1) Postoperative cellulitis of surgical wound: Status: Acute Plan Okay to discharge home and resume oral antibiotics Follow up with Urology for catheter management Quality VTE Deep Vein Thrombosis/Pulmonary Embolism Present on Admission: No
--- NOTE | 2022-08-26 12:12 | PM.DS.1 ---
History of Present Illness History of Present Illness Chief complaint: Abscess at surgery site Narrative: Carlos is a 56-year-old man who had a sigmoid colon resection and repair of a left ureteral injury 11 days ago. He developed cellulitis around his lower midline incision which did not respond immediately to oral antibiotics. He was told to go to the emergency room yesterday and was admitted. IV antibiotics were started and he has had significant improvement in his cellulitis. He has had no drainage from his wound. Discharge Providers Provider Date of admission: 08/25/22 22: Discharge Date: 08/26/22 Primary care physician: Doctor Slick MD Consults: 08/25/22 22: Consult to General Surgery Stat Comment: Consulting Provider: Med Muro Reason for consultation: Wound infection Has provider been notified: Yes Discharge provider: Dada Hernandez MD Summary Hospital Course Discharge Diagnosis: Cellulitis Hospital Course: The patient was admitted for a superficial wound infection. He was started on Zosyn with significant improvement in degree of cellulitis. He was discharged after 1 midnight and told to resume his oral antibiotics. Exam Vital Signs (past 8 hours): - 08/26/22 04:55 08/26/22 06:00 08/26/22 11:32 Temperature 96.2 F L 98.1 F Pulse Rate 48 L 67 Respiratory Rate 17 18 Blood Pressure 120/64 115/70 Pulse Oximetry 99 94 99 Oxygen Delivery Method Room Air Oxygen Flow Rate 0 Oxygen Delivery Method Room Air Oxygen Flow Rate 0 Objective Labs 08/25/22 20:33 08/25/22 20:33 Labs: Laboratory Results - last 24 hr 08/25/22 08/25/22 08/25/22 20:33 20:33 20:33 WBC 19.6 H RBC 2.89 L Hgb 8.4 L Hct 25.3 L MCV 87.7 MCH 29.0 MCHC 33.1 RDW 15.1 H Plt Count 399 Neut % (Auto) 87.5 H Lymph % (Auto) 6.2 L [place] % (Auto) 4.6 Eos % (Auto) 1.1 L Baso % (Auto) 0.6 Neut # (Auto) 62203 H Lymph # (Auto) 1200 [place] # (Auto) 900 Eos # (Auto) 200 Baso # (Auto) 100 Sodium 134 L Potassium 4.0 Chloride 97 L Carbon Dioxide 31 BUN 12 Creatinine 0.55 L Estimated GFR > 60 BUN/Creatinine Ratio 21.8 Glucose 138 H Lactate 0.8 Calcium 8.3 L SARS-CoV-2 (PCR) Influenza A (RT-PCR) Influenza B (RT-PCR) Blood Type Antibody Screen 08/25/22 08/26/22 23:13 02:55 WBC RBC Hgb Hct MCV MCH MCHC RDW Plt Count Neut % (Auto) Lymph % (Auto) [place] % (Auto) Eos % (Auto) Baso % (Auto) Neut # (Auto) Lymph # (Auto) [place] # (Auto) Eos # (Auto) Baso # (Auto) Sodium Potassium Chloride Carbon Dioxide BUN Creatinine Estimated GFR BUN/Creatinine Ratio Glucose Lactate Calcium SARS-CoV-2 (PCR) Negative Influenza A (RT-PCR) Flu a negative Influenza B (RT-PCR) Flu b negative Blood Type O Positive Antibody Screen Negative [facility] Medical History BPH (benign prostatic hyperplasia) Methamphetamine abuse Opioid use disorder Surgical History History of facial surgery (2006) Family History Brother Age: 50 Mental health problem Mother Age: 73 Hypertension Asthma Social History household members: friend(s) Smoking Status: Current every day smoker alcohol intake: current Discharge Plan Discharge Plan Patient Disposition: Home Provider Discharge Comment: Resume Augmentin after discharge Discharge orders & Medications Prescriptions: Continued amoxicillin-pot clavulanate [Augmentin] 500-125 mg tablet 1 tab PO Q12H Qty: 20 0RF ibuprofen 200 mg tablet 400 mg PO Q6H Qty: 60 0RF docusate sodium [Colace] 100 mg capsule 100 mg PO BID Qty: 30 0RF oxycodone 5 mg tablet 5 mg PO Q6H PRN (Reason: pain) Qty: 20 0RF acetaminophen [Tylenol] 325 mg capsule 650 mg PO QID PRN (Reason: pain) Qty: 60 0RF ondansetron 4 mg tablet,disintegrating 4 mg PO Q8H Qty: 10 0RF Follow up/Referrals: Miscellaneous,Doctor, [Primary Care Provider] - Visit Report/Discharge Packet Stand Alone Forms: Patient Portal/API, Stroke Signs & Symptoms Discharge Data Primary Care Provider: Miscellrashi,Doctor Quality VTE Deep Vein Thrombosis/Pulmonary Embolism Present on Admission: No
--- NOTE | 2022-08-26 14:17 | CM.DANOTE ---
Discharge Planning/Care Management CM Discharge Assessment Start: 08/26/22 13:30 Freq: Status: Active Protocol: Document 08/26/22 13:30 AAIMR (Rec: 08/26/22 13:37 AAMIR [id number]) Discharge Planning Assessment Assigned Portable Track Line Marker ELISE Echeverria DPOA/Assigned Designee Name No one Advance Directives? No History Provided By Patient,Medical Record Prior Living Arrangements House Household Members friend(s) Type of transporation used prior to Relies on Others admit Independent with ADL's Yes Is patient alert and oriented? Yes Barriers to Discharge No Comment Patient reports he has been staying with his friend Bernard and can discharge back home w/ Bernard today. Patient received IV abx today and will be discharged on po abx. Patient scheduled to see [facility] surgeons next week. Patient will discharge with childress catheter Met w/patient to review DCP and he confirms above and that he has been trying hard to remain sober. Patient still plans to follow with [facility] treatment and counseling when more medically stable to transport back/forth from [place] Patient denies needs from this [employer] today Discharge Plan Home Transportation Arrangement Friend Referrals Initiated None needed
--- NOTE | 2022-08-26 15:48 | CM.MNRNOTE ---
Discharge: Pt feels ready to d/c to home. There is an odor from the room, diff to tell if its cigarettes or some other substance. Pt's clothing was checked by Radha RN/CO for any substances, none were found. D/c instructions were given by Radha VIGIL as well. Pt verb he knows how to use the leg and and can switch between catheter devices. He was given a childress and a leg bag. Last dose of IV antibiotics completed. Pt d/c to home via auto w/friend.
== END 2022-08-26 15:30 | disposition home or self-care (01) ==
LOC: ED 22:27 → AC 08-26 12:12
PROVIDERS: Admitting Provider Surgery; Emergency Provider Emergency Medicine; Family Provider Family Medicine; Referring Provider Emergency Medicine; Visit Provider Surgery
DX: T81.41XA Infection following a procedure, superficial incisional surgical site, initial encounter (principal); Z98.890 Other specified postprocedural states; Z20.822 Contact with and (suspected) exposure to COVID-19
CPT/HCPCS: 36415; 71260; 74177; 80048; 83605; 85025; 86850; 86900; 86901; 87040; 87635; 96365; 96366; 99283; 99284; C9803; G0378; J2543; Q9967

== ENCOUNTER 2022-08-30 16:06 | Inpatient (IN) | payer OTHER, MEDICAID, SELFPAY ==
[2022-08-30] VITALS (8 sets, daily range): BP systolic 135–166; BP diastolic 80–99; PULSE 53–87; RESP 16–20; TEMP 35.4–36.5; O2SAT 97–100; BMI 22.8
--- NOTE | 2022-08-30 16:21 | DI.CT.S_ITS ---
PROCEDURE: CT ABDOMEN PELVIS W CON INDICATIONS: hx colovesical fistual, cellulitis abd/testicular swelling TECHNIQUE: After the administration of intravenous contrast, axial sections acquired from the lung bases to the pubic symphysis. Coronal and sagittal reformats were performed. For radiation dose reduction, the following was used: automated exposure control, adjustment of mA and/or kV according to patient size. COMPARISON: [facility], CT, CT CHEST ABD PEL W CON, 08/25/2022, 21:15. [facility], CT, CT ABDOMEN PELVIS W CON, 08/09/2022, 0:33. FINDINGS: Image quality: Excellent. Lung bases: Unremarkable. Heart: No significant findings. ABDOMEN: Liver: Probable subcentimeter cyst is redemonstrated within the anterior aspect of the liver. Gallbladder: Unremarkable. Biliary ducts: Unremarkable. Pancreas: Unremarkable. Spleen: Unremarkable. Adrenal Glands: Unremarkable. Kidneys and Ureters: Symmetric enhancement. There is a left double-J ureteral stent. Some gas is present within the left renal pelvis. No hydronephrosis. Stomach and Bowel: The stomach and small bowel demonstrate overall normal caliber and wall thickness. The colon is stool filled and demonstrates normal course and caliber. The colovesicular fistula has a similar appearance to the comparison CT dated August 25, 2022. As before, there is marked thickening of the bladder wall along the left dome of the bladder in the region of the fistulous connection. Marked inflammatory changes are present within the mid sigmoid colon likely in the region of communication of the fistulous connection. There is rim enhancement along the tract of the fistula with fluid present centrally. The extent of fluid and the size of the fistulous track is markedly decreased when compared with the study dated August 09, 2022. Peritoneum: No abnormal intraperitoneal fluid. No free air. Ventral Wall: When compared with the study dated August 25, 2022, there appears to be increased organization of a rim enhancing midline fluid collection inferior to the umbilicus. This now measures 3.3 x 2.0 by 13.0 cm and previously measured approximately 1.3 x 1.2 by 11.5 cm. No fistulous connection with the bowel appreciated. Abdominal Nodes: No retroperitoneal or mesenteric adenopathy by size criteria. Vessels: Aorta and inferior vena cava are normal in size. PELVIS: Pelvic Organs: Unremarkable. Bladder: Marked bladder wall thickening and enhancement is redemonstrated within the left superior aspect of the bladder in the region of the fistulous connection with the sigmoid colon. This finding is likely similar to the study dated August 25, 2022. Pelvic Nodes: No enlarged lymph nodes. Miscellaneous: No hernias are seen. Bones: Unremarkable. IMPRESSION: 1. Overall similar appearance of the colovesicular fistula when compared with the CT dated August 25, 2022. The extent of inflammatory changes in the size of the fistulous tract is decreased from the CT dated August 09, 2022. 2. Increased size of an organized rim enhancing fluid collection at midline within the anterior soft tissues when compared with the prior study suggesting subcutaneous abscess. 3. Overall stable inflammatory changes within the left superior bladder wall in the region of the fistulous communication. Dictated by: Cayla Vasquez M.D. on 08/30/2022 at 16:58 Approved by: Cayla Vasquez M.D. on 08/30/2022 at 17:07
--- NOTE | 2022-08-30 16:23 | ED_ITS ---
HPI - Sepsis General Chief Complaint: Urogenital-Male Mode of arrival: other (Law enforcement) Source: patient, RN notes reviewed, old records reviewed and police Limitations: no limitations Evaluation Narrative: This is a 56-year-old male with history of opioid and methamphetamine abuse who had a recent colovesical fistula with repair and then readmission for cellulitis and discharged on 08/26/2022. He presents with law enforcement for fit for fpc clearance. Patient still has catheter in place. He states he was discharged on oral antibiotics which were Augmentin. He states he has been taking them regula rly. He denies fevers or chills. No chest pain or shortness of breath. He does continue abdominal pain particularly over his incision which appears healed but he is had spreading redness. He also states he is had significant swelling of his testicles. Catheters in place he states urine has been yellow. He states he continues to have diarrhea. Patient denies any syncope. No swelling of extremities. Denies any fevers or chills. He states no other daily medications besides the antibiotics, he denies any drug allergies. Patient states no active alcohol use. He states he did recently use opiates and methamphetamines today. Review of Systems Review of Systems ROS Unobtainable: All systems reviewed & are unremarkable except as noted in HPI and below Patient History Medical History BPH (benign prostatic hyperplasia) History of open sigmoidectomy Methamphetamine abuse Opioid use disorder Surgical History History of facial surgery (2006) S/P cystoscopy with ureteral stent placement Family History Brother Age: 50 Mental health problem Mother Age: 73 Hypertension Asthma Social History household members: friend(s) Smoking Status: Current every day smoker alcohol intake: current Smoking Status: Current every day smoker alcohol intake frequency: 0-2 drinks per day Substance Use Type: former substance user, opiates and methamphetamine Exam Narrative Exam Narrative: GENERAL: Alert and oriented x three, male in [id number] distress. HEENT: Head normocephalic, atraumatic, EOMI, pupils reactive, face symmetric, moist mucous membranes NECK: Supple, full range of motion CARDIOVASCULAR: Regular rate and rhythm without murmurs, rubs or gallops. RESPIRATORY: Breath sounds equal bilaterally, no wheezes rales or rhonchi. ABDOMEN: Soft in upper abdomen, lower pelvic portion of the abdomen is distended and feels full, and slightly hard but not rigid, tender with erythema about 10 cm in circumference. The incision itself appears to be healing. Patient also has significant swelling of the testicles. Right greater than left. Normoactive bowel sounds all 4 quadrants. : No CVA tenderness. Male: normal external examination of penis, patient's testicles are swollen bilaterally, right greater than left, no penile discharge or lesions, testicles rate is tender, cremasteric reflex intact. Patient has urinary catheter in place draining yellow urine. EXTREMITIES: Normal range of motion, no clubbing or edema. Neurovascularly intact NEUROLOGICAL: Cranial nerves II through XII grossly intact. Moving all extremities. Normal gait. SKIN: Warm, dry, no petechiae, no rashes or lesions other than noted above. Initial Vital Signs Initial Vital Signs: Vital Signs Temperature 97.7 F 08/30/22 16:21 Pulse Rate 63 08/30/22 16:21 Respiratory Rate 20 08/30/22 16:21 Blood Pressure 166/93 H 08/30/22 16:21 Pulse Oximetry 97 08/30/22 16:21 Oxygen Delivery Method Room Air 08/30/22 16:21 Course Orders Ordered: ED Orders 08/30/22 16:21 CT abdomen pelvis w con Stat 08/30/22 16:35 Complete Blood Count AUTO DIFF Stat Comprehensive Metabolic Panel Stat Lactate (Lactic Acid) Stat Procalcitonin Stat 08/30/22 16:48 Blood Culture Stat 08/30/22 17:35 Urinalysis and Microscopic Stat Urine Culture Stat Acetaminophen (Acetaminophen 325 Mg Tablet) 650 mg PO Q6H PRN PRN Reason: Fever/Mild Pain (1-3) Hydromorphone HCl (Hydromorphone 0.5 Mg Inj) 0.8 mg IV Q2H PRN PRN Reason: Pain, Severe (7-10) Ceftriaxone Sodium 2,000 mg/ (Sodium Chloride) 100 mls @ 200 mls/hr IV Q24H ROSA Metronidazole (Flagyl) 500 mg in 100 mls @ 100 mls/hr IV Q8H ROSA Vancomycin HCl (Vancomycin) 1,250 mg in 250 mls @ 250 mls/hr IV Q8H [facility] Naloxone HCl (Naloxone 0.4 Mg/Ml Vial) 0.2 mg IV Q2MIN PRN PRN Reason: Opiate Reversal Ondansetron HCl (Ondansetron 4 Mg/2 Ml Inj) 4 mg IV Q8HR PRN PRN Reason: Nausea And Vomiting Oxycodone HCl (Oxycodone Ir 5 Mg Tablet) 5 mg PO Q3H PRN PRN Reason: Pain, Moderate (4-6) Oxycodone HCl (Oxycodone Ir 10 Mg Tablet) 10 mg PO Q3H PRN PRN Reason: Pain, Severe (7-10) Vancomycin HCl (Vancomycin Trough) 1 request [facility]IS 1630 [facility] Stop: 08/31/22 16:31 Vancomycin HCl (Vancomycin Peak) 1 request [facility] 1900 [facility] Stop: 08/31/22 19:01 Discontinued Medications Piperacillin Sod/Tazobactam (Sod 4.5 gm/ Sodium Chloride) 100 mls @ 200 mls/hr IV NOW ONE Stop: 08/30/22 16:22 Last Infusion: 08/30/22 17:34 Dose: 0 mls/hr Documented By: Admin: 08/30/22 16:59 Dose: 200 mls/hr Documented By: AMBER Vancomycin HCl (Vancomycin) 1,000 mg in 200 mls @ 200 mls/hr IV NOW ONE Stop: 08/30/22 17:20 Last Infusion: 08/30/22 18:00 Dose: 200 mls/hr Documented By: Admin: 08/30/22 17:41 Dose: 200 mls/hr Documented By: AMBER Vital Signs Vital signs: Vital Signs - 8 hr 08/30/22 16:21 08/30/22 17:00 Temperature 97.7 F Pulse Rate 63 58 L Respiratory Rate 20 18 Blood Pressure 166/93 H 152/83 H Pulse Oximetry 97 99 Oxygen Delivery Method Room Air Room Air Sepsis Evaluation (ED) Response It is my opinion that his patient have a likely infectious etiology for meeting sepsis criteria: Does Not (Yes etiology, no sepsis) Fluid calculation based on 30 mL/kg within 1hr of criteria: Other Antibiotics initiated within 1 hr of Sepis dx: Yes Tissue Perfusion Reassessed within 6 hrs of infusion start time: No MDM - Sepsis Lab Data 08/30/22 16:35 08/30/22 16:35 Labs: Lab Results 08/30/22 08/30/22 08/30/22 Range/Units 16:35 16:35 16:35 WBC 10.0 (4.5-11.0) X10^3/uL RBC 3.42 L (4.5-5.9) X10^6/uL Hgb 9.9 L (13.5-17.5) g/dL Hct 30.1 L (41-53) % MCV 88.2 (80-100) fL MCH 29.0 (26-34) PG MCHC 32.9 (30-36) % RDW 15.6 H (11.6-14.8) % Plt Count 630 H (150-400) X10^3/uL Neut % (Auto) 67.1 (50-75) % Lymph % (Auto) 22.1 L (25-40) % [place] % (Auto) 5.7 (3-14) % Eos % (Auto) 4.2 H (2-4) % Baso % (Auto) 0.9 (0-2) % Neut # (Auto) 6700 (0527-4173) /uL Lymph # (Auto) 2200 (5293-6069) /uL [place] # (Auto) 600 (0-900) /uL Eos # (Auto) 400 (0-450) /uL Baso # (Auto) 100 (0-100) /uL Sodium 135 L (137-145) mmol/L Potassium 3.8 (3.4-5.1) mmol/L Chloride 99 (98-107) mmol/L Carbon Dioxide 29 (22-32) mmol/L BUN 12 (9-20) mg/dL Creatinine 0.53 L (0.66-1.25) mg/dL Estimated GFR > 60 (>60) mL/min BUN/Creatinine Ratio 22.6 H (6-22) Glucose 104 H (70-100) mg/dL Lactate 0.8 (0.7-2.1) mmol/L Calcium 8.5 (8.4-10.2) mg/dL Total Bilirubin 0.1 L (0.2-1.3) mg/dL AST 23 (17-59) IU/L ALT 23 (<50) IU/L Alkaline Phosphatase 102 (38-126) U/L Total Protein 7.1 (6.3-8.2) g/dL Albumin 3.5 (3.5-5.0) g/dL Globulin 3.6 (1.7-4.1) g/dL Albumin/Globulin Ratio 1.0 (1.0-2.8) Procalcitonin 0.05 (<0.5) ng/mL Urine Color Urine Appearance Urine pH (4.5-8.0) Ur Specific [place] (1.000-1.035) Urine Protein (Negative) Urine Glucose (UA) (Negative) g/dL Urine Ketones (NEGATIVE) Urine Occult Blood (Negative) Urine Nitrate (Negative) Urine Bilirubin (NEGATIVE) Urine Urobilinogen (0.2) E.U./dL Ur Leukocyte Esterase (NEGATIVE) Urine RBC (0-5/HPF) Urine WBC (0-5/HPF) Urine Bacteria (None) Ur Culture Indicated? 08/30/22 Range/Units 17:35 WBC (4.5-11.0) X10^3/uL RBC (4.5-5.9) X10^6/uL Hgb (13.5-17.5) g/dL Hct (41-53) % MCV (80-100) fL MCH (26-34) PG MCHC (30-36) % RDW (11.6-14.8) % Plt Count (150-400) X10^3/uL Neut % (Auto) (50-75) % Lymph % (Auto) (25-40) % [place] % (Auto) (3-14) % Eos % (Auto) (2-4) % Baso % (Auto) (0-2) % Neut # (Auto) (0211-1135) /uL Lymph # (Auto) (3086-6607) /uL [place] # (Auto) (0-900) /uL Eos # (Auto) (0-450) /uL Baso # (Auto) (0-100) /uL Sodium (137-145) mmol/L Potassium (3.4-5.1) mmol/L Chloride (98-107) mmol/L Carbon Dioxide (22-32) mmol/L BUN (9-20) mg/dL Creatinine (0.66-1.25) mg/dL Estimated GFR (>60) mL/min BUN/Creatinine Ratio (6-22) Glucose (70-100) mg/dL Lactate (0.7-2.1) mmol/L Calcium (8.4-10.2) mg/dL Total Bilirubin (0.2-1.3) mg/dL AST (17-59) IU/L ALT (<50) IU/L Alkaline Phosphatase (38-126) U/L Total Protein (6.3-8.2) g/dL Albumin (3.5-5.0) g/dL Globulin (1.7-4.1) g/dL Albumin/Globulin Ratio (1.0-2.8) Procalcitonin (<0.5) ng/mL Urine Color Yellow Urine Appearance Clear Urine pH 8.0 (4.5-8.0) Ur Specific [place] 1.010 (1.000-1.035) Urine Protein Negative (Negative) Urine Glucose (UA) Negative (Negative) g/dL Urine Ketones Negative (NEGATIVE) Urine Occult Blood 2+ H (Negative) Urine Nitrate Negative (Negative) Urine Bilirubin Negative (NEGATIVE) Urine Urobilinogen 0.2 (0.2) E.U./dL Ur Leukocyte Esterase Trace H (NEGATIVE) Urine RBC 1-5/hpf D (0-5/HPF) Urine WBC 5-10/hpf H (0-5/HPF) Urine Bacteria Moderate (10-30) H (None) Ur Culture Indicated? Specimen cultured MDM Narrative Medical decision making narrative: This is a 56-year-old male history of opiate and methamphetamine abuse who had recent colovesicular fistula developed cellulitis overlying and was just discharged on the on oral antibiotics. Presents with fit for fpc but has significant swelling and fullness of his lower pelvic region over the area of his incision the incision itself appears healing but there is a large area of erythema consistent with cellulitis and possible underlying abscess as well as testicular swelling. Plan for labs, IV fluids, CT abdomen pelvis to include testicles to evaluate for cellulitis versus abscess, patient does appear to be draining urine appropriately through his catheter. Patient does not appear sept ic at this time but does appear to require inpatient admission for IV antibiotics, likely surgical drainage of the abscess in the anterior abdominal wall tissue. Patient case was discussed with Dr. Gomez who is happy to see the patient he agrees with plans for Zosyn and vancomycin for coverage. Because of patient's chronic substance abuse he asked for admission to medicine. I spoke with Dr. Simpson who accepts inpatient admission. Patient was not clinically cleared for incarceration and documentation was provided to law enforcement. Discharge Plan Departure Patient Disposition: Admitted As Inpatient Clinical Impression: Abdominal abscess, Western-vesical fistula Admit Date/Time: 08/30/22 17:42 Admit Provider: Silver Simpson
[2022-08-30 16:43] LABS: Add Manual Diff / Slide Review NO; Basophils Absolute Auto 100 /uL (0-100); Basophils Percent Auto 0.9 % (0-2); Eosinophils Absolute Auto 400 /uL (0-450); Eosinophils Percent Auto 4.2 % (2-4); Hematocrit 30.1 % (41-53); Hemoglobin 9.9 g/dL (13.5-17.5); Lymphocytes Absolute Auto 2200 /uL (1100-4500); Lymphocytes Percent Auto 22.1 % (25-40); Mean Corpuscular HGB Conc 32.9 % (30-36); Mean Corpuscular Volume 88.2 fL (80-100); Monocytes Absolute Auto 600 /uL (0-900); Monocytes Percent Auto 5.7 % (3-14); Neutrophils Absolute Auto 6700 /uL (1500-7000); Neutrophils Percent Auto 67.1 % (50-75); Platelet Count 630 X10^3/uL (150-400); Red Blood Cell Count 3.42 X10^6/uL (4.5-5.9); Red Cell Distribution Width 15.6 % (11.6-14.8)
[2022-08-30 16:56] LABS: Lactate (Lactic Acid) 0.8 mmol/L (0.7-2.1)
[2022-08-30 16:58] LABS: Alanine Aminotransferase 23 IU/L (<50); Albumin 3.5 g/dL (3.5-5.0); Alkaline Phosphatase 102 U/L (38-126); Aspartate Aminotransferase 23 IU/L (17-59); BUN Creatinine Ratio 22.6 (6-22); Bilirubin Total 0.1 mg/dL (0.2-1.3); Blood Urea Nitrogen 12 mg/dL (9-20); Calcium 8.5 mg/dL (8.4-10.2); Carbon Dioxide 29 mmol/L (22-32); Chloride 99 mmol/L (98-107); Estimated Glomerular Filt Rate > 60 mL/min (>60); Globulin 3.6 g/dL (1.7-4.1); Glucose 104 mg/dL (70-100); HEMOLYSIS < 15 (0-50); Potassium 3.8 mmol/L (3.4-5.1); Sodium 135 mmol/L (137-145); Total Protein 7.1 g/dL (6.3-8.2)
[2022-08-30] MEDS: PIPERACILLIN/TAZO 4.5 GM in SODIUM CHLORIDE 0.9% 100 ML IV (16:59)
[2022-08-30 17:13] LABS: Procalcitonin 0.05 ng/mL (<0.5)
[2022-08-30] MEDS: VANCOMYCIN 1,000 MG/200 ML PIGGYBACK 200 MG IV (17:41)
[2022-08-30 17:42] LABS: Appearance Urine UA CLEAR; Bilirubin Urine UA NEGATIVE (NEGATIVE); Color Urine UA YELLOW; Glucose Urine UA NEGATIVE (Negative); Ketones Urine UA NEGATIVE (NEGATIVE); Leukocyte Esterase Urine UA TRACE (NEGATIVE); Nitrite Urine UA NEGATIVE (Negative); Occult Blood Urine UA 2+ (Negative); Protein Urine UA NEGATIVE (Negative); Urobilinogen Urine UA 0.2 E.U./dL (0.2)
[2022-08-30 17:57] LABS: Bacteria Urine Moderate (10-30); Culture Indicated Urine Specimen Cultured; RBC Urine 1-5/HPF (0-5/HPF); WBC Urine 5-10/HPF (0-5/HPF)
--- NOTE | 2022-08-30 18:03 | P.HP_ITS ---
History of Present Illness History of Present Illness Date Patient Seen: 08/30/22 Time Patient Seen: 18:03 Chief complaint: Fit for Senior Care-Swollen Testicle,Need cath removed Narrative: This is a 56 year old male with PMH of opiate and methamphetamine abuse who presented initially for a fit for residential clearance. He recently has been admitted for a found colovesicular fistula on 08/09/22, underwent ex-lap with partial sigmoidectomy and primary repair of his bladder. This was complicated by a thermal ureteral injury which was repaired intra-operatively and though no extravasation was seen a stent was placed for precautionary measures. He continues to have a childress catheter in place. Per review of his outpatient documentation, he was started on augmentin for a post operative cellulitis around his incision site on 08/23. He was then admitted on 08/26 for IV antibiot ics with a superficial cellulitis and concern for abscess, he was discharged shortly after and returns today for a fit for residential clearance. He was continued on amoxicillin-pot clavulanate 500/125 mg BID by the surgeon after discharge on 08/26. He complains of worsening abdominal pain and has had spreading redness, swelling around his abdomen, but also of his testicles and diarrhea. He denies any fever or chills. He last used fentanyl today, usually takes 2-3 blueys a day, and methamphetamine was also used today. He reports prior episodes of opiate withdrawal when he stops using opiates. In the emergency room, the patient's vitals were unremarkable. Lab evaluation notable for no leukocytosis, mild anemia with Hg of 9.9, and Plt of 630. Chemistries were unremarkable. UA positive for infection with 1-5 RBC, 5-10 WBC and moderate bacteria and was reflexed for culture. Surgery service requested admission to hospitalist service given patient's substance abuse issues. He was given zosyn and vancomycin, admitted to medicine. [facility] Medical History BPH (benign prostatic hyperplasia) History of open sigmoidectomy Methamphetamine abuse Opioid use disorder Surgical History History of facial surgery (2006) S/P cystoscopy with ureteral stent placement Family History Brother Age: 50 Mental health problem Mother Age: 73 Hypertension Asthma Social History household members: friend(s) Smoking Status: Current every day smoker alcohol intake: current Meds Home Medications and Allergies Home Medications Medication Instructions Recorded Confirmed Type acetaminophen 325 mg capsule 650 mg PO QID PRN pain #60 caps 08/18/22 08/25/22 Rx (Tylenol) docusate sodium 100 mg capsule 100 mg PO BID #30 caps 08/18/22 08/25/22 Rx (Colace) ibuprofen 200 mg tablet 400 mg PO Q6H #60 tabs 08/18/22 08/25/22 Rx ondansetron 4 mg disintegrating 4 mg PO Q8H #10 tabs 08/18/22 08/25/22 Rx tablet oxycodone 5 mg tablet 5 mg PO Q6H PRN pain #20 tabs 08/18/22 08/25/22 Rx amoxicillin 500 mg-potassium 1 tab PO Q12H #20 tabs 08/23/22 08/25/22 Rx clavulanate 125 mg tablet (Augmentin) Allergies Allergy/AdvReac Type Severity Reaction Status Date / Time No Known Drug Allergies Allergy Verified 08/25/22 20:06 Review of Systems Review of Systems Narrative: All other systems reviewed with the patient and are negative unless otherwise stated. Exam Vital Signs (past 8 hours): - 08/30/22 16:21 08/30/22 17:00 Temperature 97.7 F Pulse Rate 63 58 L Respiratory Rate 20 18 Blood Pressure 166/93 H 152/83 H Pulse Oximetry 97 99 Oxygen Delivery Method Room Air Room Air Oxygen Delivery Method Room Air Narrative Exam Narrative: General:? Patient is well developed and well nourished, in no distress at this time. HEENT:? Normocephalic, atraumatic, extraocular muscles intact, oral pharynx is clear and mucous membranes are moist. Poor dentition. Neck: supple and symmetric, trachea is midline, no cervical adenopathy. Negative for JVD Chest:? Normal AP diameter and contour without kyphoscoliosis, no tachypnea, equal chest rise bilaterally. Lungs:? CTA b/l no wheezing rhonchi or rales. Cardio:?RRR no m/r/g. Abdomen: soft, mild distension. Midline incision with mild erythema surrounding the incision, with tenderness and warmth, no obvious drainage. : childress in place, mild scrotal swelling and erythema, minimal tenderness, no necrosis. Musculoskeletal:? Muscle strength and tone are equal within normal limits, no deformity. Extremities: No edema or joint effusions. No cyanosis or clubbing. Skin:? Pale,? Warm to touch,dry and intact without rashes, ulcerations or petechiae.? Neuro:? Alert and orientated x3,? sensation to touch intact in all extremities, no gross deficits noted of cranial nerves. Psych:? Patient has a well-kept appearance, appropriate affect, mental status attitude thought context and judgment are appropriate for age. Objective Imaging CT scan - abdomen: Radiologist's impression: 1. Overall similar appearance of the colovesicular fistula when compared with the CT dated August 25, 2022. The extent of inflammatory changes in the size of the fistulous tract is decreased from the CT dated August 09, 2022. ? 2. Increased size of an organized rim enhancing fluid collection at midline within the anterior soft tissues when compared with the prior study suggesting subcutaneous abscess. ? 3. Overall stable inflammatory changes within the left superior bladder wall in the region of the fistulous communication.? Labs 08/30/22 16:35 08/30/22 16:35 Labs: Laboratory Results - last 24 hr 08/30/22 08/30/22 08/30/22 16:35 16:35 16:35 WBC 10.0 RBC 3.42 L Hgb 9.9 L Hct 30.1 L MCV 88.2 MCH 29.0 MCHC 32.9 RDW 15.6 H Plt Count 630 H Neut % (Auto) 67.1 Lymph % (Auto) 22.1 L [place] % (Auto) 5.7 Eos % (Auto) 4.2 H Baso % (Auto) 0.9 Neut # (Auto) 6700 Lymph # (Auto) 2200 [place] # (Auto) 600 Eos # (Auto) 400 Baso # (Auto) 100 Sodium 135 L Potassium 3.8 Chloride 99 Carbon Dioxide 29 BUN 12 Creatinine 0.53 L Estimated GFR > 60 BUN/Creatinine Ratio 22.6 H Glucose 104 H Lactate 0.8 Calcium 8.5 Total Bilirubin 0.1 L AST 23 ALT 23 Alkaline Phosphatase 102 Total Protein 7.1 Albumin 3.5 Globulin 3.6 Albumin/Globulin Ratio 1.0 Procalcitonin 0.05 Urine Color Urine Appearance Urine pH Ur Specific [place] Urine Protein Urine Glucose (UA) Urine Ketones Urine Occult Blood Urine Nitrate Urine Bilirubin Urine Urobilinogen Ur Leukocyte Esterase Urine RBC Urine WBC Urine Bacteria Ur Culture Indicated? 08/30/22 17:35 WBC RBC Hgb Hct MCV MCH MCHC RDW Plt Count Neut % (Auto) Lymph % (Auto) [place] % (Auto) Eos % (Auto) Baso % (Auto) Neut # (Auto) Lymph # (Auto) [place] # (Auto) Eos # (Auto) Baso # (Auto) Sodium Potassium Chloride Carbon Dioxide BUN Creatinine Estimated GFR BUN/Creatinine Ratio Glucose Lactate Calcium Total Bilirubin AST ALT Alkaline Phosphatase Total Protein Albumin Globulin Albumin/Globulin Ratio Procalcitonin Urine Color Yellow Urine Appearance Clear Urine pH 8.0 Ur Specific [place] 1.010 Urine Protein Negative Urine Glucose (UA) Negative Urine Ketones Negative Urine Occult Blood 2+ H Urine Nitrate Negative Urine Bilirubin Negative Urine Urobilinogen 0.2 Ur Leukocyte Esterase Trace H Urine RBC 1-5/hpf D Urine WBC 5-10/hpf H Urine Bacteria Moderate (10-30) H Ur Culture Indicated? Specimen cultured Assessment & Plan Assessment & Plan narrative: 1. Post operative wound infection and abscess, abdomen - continue ceftriaxone, flagyl, and vancomycin. Most likely superficial wound infection but cover for anaerobes given recent surgical history. - NPO @ [place], general surgery to evaluate in the morning for I&D. - pain control with opiates 2. Recent ureteral stent placement due to thermal injury (iatrogenic) - continue childress - will discuss with urology regarding stent and childress care and given patient presented for residential clearance will see about appropriate timing of stent removal. 3. Polysubstance abuse. - continue opiates for pain control, should limit symptoms of opiate withdrawal. 4. Acute cystitis associated with childress catheter, present on admission - continue antiboitics as noted above - follow up cultures. - some concern for still a fistulous tract based on imaging reports, will see what bacteria grow ultimately from cultures. Continue antibiotics as above. 5. Anemia - presume secondary to recent surgical procedures, improved somewhat from his recent hospitalization, will follow 6. Thrombocytosis - Plt 630, suspect reactive. Will follow. Code: Full, surrogate is patient's friend Bernard DVT: SCD's, hold ppx given possible surgical interventions Dispo: admitted as an inpatient as his stay is expected to exceed two midnights. I have obtained additional history from extensive review of patient's recent hospitalizations from surgical service and ER provider. Reviewed patient's recent lab evaluations, documentation and imaging including most recent CT imaging. I have utilized all available immediate resources to obtain, update, or review the patient's current medications. Quality MIPS - Admit I confirm the patient?s Advance Care Plan is present, Code status is documented, Surrogate decision maker is in patient?s record [If Yes, STOP here]: Yes
[2022-08-30] MEDS: cefTRIAXone 2,000 MG in SODIUM CHLORIDE 0.9% 100 ML 200 MG IV (20:17)
[2022-08-30] MEDS: metroNIDAZOLE 500 MG/100 ML PIGGYBACK 100 MG IV (20:17)
[2022-08-30] MEDS: LORazepam 2 MG/ML INJ IV (22:55)
[2022-08-30] MEDS: THIAMINE 100 MG TABLET PO (23:05)
--- NOTE | 2022-08-30 23:25 | PC.NURSE ---
Addendum entered by Dante Marc R.N. 08/31/22 01:03: Dr. Hendrickson was notified regarding pt refusing another IV at 2330 and pt has 3 IV abx scheduled; per Dr. Hendrickson, attempt to place another IV on pt but if pt still refuses then relay information to day team. RN Coordinator Brittani was made aware. Original Note: Pt is refusing new IV to be placed and refusing vital signs to be taken. RN explained to pt the importance of IV access due to IV ABX and medications and pt still refused.
[2022-08-31] VITALS (17 sets, daily range): BP systolic 124–150; BP diastolic 74–96; PULSE 52–78; RESP 14–20; TEMP 35.9–36.9; O2SAT 95–98; BMI 22.8
[2022-08-31 04:39] LABS: Add Manual Diff / Slide Review NO; Basophils Absolute Auto 100 /uL (0-100); Eosinophils Absolute Auto 300 /uL (0-450); Eosinophils Percent Auto 3.6 % (2-4); Hematocrit 36.2 % (41-53); Lymphocytes Absolute Auto 2200 /uL (1100-4500); Lymphocytes Percent Auto 24.6 % (25-40); Mean Corpuscular HGB Conc 33.2 % (30-36); Mean Corpuscular Hemoglobin 28.9 PG (26-34); Mean Corpuscular Volume 87.2 fL (80-100); Monocytes Absolute Auto 600 /uL (0-900); Monocytes Percent Auto 6.2 % (3-14); Neutrophils Absolute Auto 5800 /uL (1500-7000); Neutrophils Percent Auto 64.6 % (50-75); Platelet Count 706 X10^3/uL (150-400); Red Blood Cell Count 4.15 X10^6/uL (4.5-5.9); Red Cell Distribution Width 15.2 % (11.6-14.8); White Blood Cell Count 8.9 X10^3/uL (4.5-11.0)
[2022-08-31 04:51] LABS: BUN Creatinine Ratio 15.1 (6-22); Blood Urea Nitrogen 8 mg/dL (9-20); Calcium 8.8 mg/dL (8.4-10.2); Carbon Dioxide 29 mmol/L (22-32); Chloride 103 mmol/L (98-107); Estimated Glomerular Filt Rate > 60 mL/min (>60); Glucose 114 mg/dL (70-100); HEMOLYSIS < 15 (0-50); Magnesium 2.1 mg/dL (1.6-2.3); Potassium 4.1 mmol/L (3.4-5.1); Sodium 137 mmol/L (137-145)
--- NOTE | 2022-08-31 08:27 | P.CONS_ITS ---
History of Present Illness Consult details Date Patient Seen: 08/31/22 Chief complaint: Fit for Long Term-Swollen Testicle,Need cath removed Narrative: 56-year-old incarcerated man 2 weeks status post sigmoid colectomy for colovesicular fistula. He is here with a midline wound infection. CT abdomen pelvis demonstrates a 13 cm subcutaneous abscess within the abdominal wall. Afebrile WBC 9. Meds Home Medications and Allergies Home Medications Medication Instructions Recorded Confirmed Type acetaminophen 325 mg capsule 650 mg PO QID PRN pain #60 caps 08/18/22 08/25/22 Rx (Tylenol) docusate sodium 100 mg capsule 100 mg PO BID #30 caps 08/18/22 08/25/22 Rx (Colace) ibuprofen 200 mg tablet 400 mg PO Q6H #60 tabs 08/18/22 08/25/22 Rx ondansetron 4 mg disintegrating 4 mg PO Q8H #10 tabs 08/18/22 08/25/22 Rx tablet oxycodone 5 mg tablet 5 mg PO Q6H PRN pain #20 tabs 08/18/22 08/25/22 Rx amoxicillin 500 mg-potassium 1 tab PO Q12H #20 tabs 08/23/22 08/25/22 Rx clavulanate 125 mg tablet (Augmentin) Allergies Allergy/AdvReac Type Severity Reaction Status Date / Time No Known Drug Allergies Allergy Verified 08/25/22 20:06 Exam Vital Signs (past 8 hours): - 08/31/22 04:00 08/31/22 06:00 Temperature 97.1 F L Pulse Rate 66 Respiratory Rate 15 Blood Pressure 126/92 H Pulse Oximetry 96 97 Oxygen Delivery Method Room Air Oxygen Delivery Method Room Air Narrative Exam Narrative: General adult man drowsy but oriented to person place and time. Chest nonlabored respirations Abdomen erythema and fluctuance around the midline incision infraumbilical. Objective Labs 08/31/22 04:20 08/31/22 04:20 Labs: Laboratory Results - last 24 hr 08/30/22 08/30/22 08/30/22 16:35 16:35 16:35 WBC 10.0 RBC 3.42 L Hgb 9.9 L Hct 30.1 L MCV 88.2 MCH 29.0 MCHC 32.9 RDW 15.6 H Plt Count 630 H Neut % (Auto) 67.1 Lymph % (Auto) 22.1 L [place] % (Auto) 5.7 Eos % (Auto) 4.2 H Baso % (Auto) 0.9 Neut # (Auto) 6700 Lymph # (Auto) 2200 [place] # (Auto) 600 Eos # (Auto) 400 Baso # (Auto) 100 Sodium 135 L Potassium 3.8 Chloride 99 Carbon Dioxide 29 BUN 12 Creatinine 0.53 L Estimated GFR > 60 BUN/Creatinine Ratio 22.6 H Glucose 104 H Lactate 0.8 Calcium 8.5 Magnesium Total Bilirubin 0.1 L AST 23 ALT 23 Alkaline Phosphatase 102 Total Protein 7.1 Albumin 3.5 Globulin 3.6 Albumin/Globulin Ratio 1.0 Procalcitonin 0.05 Urine Color Urine Appearance Urine pH Ur Specific [place] Urine Protein Urine Glucose (UA) Urine Ketones Urine Occult Blood Urine Nitrate Urine Bilirubin Urine Urobilinogen Ur Leukocyte Esterase Urine RBC Urine WBC Urine Bacteria Ur Culture Indicated? 08/30/22 08/31/22 08/31/22 17:35 04:20 04:20 WBC 8.9 RBC 4.15 L Hgb 12.0 L Hct 36.2 L MCV 87.2 MCH 28.9 MCHC 33.2 RDW 15.2 H Plt Count 706 H Neut % (Auto) 64.6 Lymph % (Auto) 24.6 L [place] % (Auto) 6.2 Eos % (Auto) 3.6 Baso % (Auto) 1.0 Neut # (Auto) 5800 Lymph # (Auto) 2200 [place] # (Auto) 600 Eos # (Auto) 300 Baso # (Auto) 100 Sodium 137 Potassium 4.1 Chloride 103 Carbon Dioxide 29 BUN 8 L Creatinine 0.53 L Estimated GFR > 60 BUN/Creatinine Ratio 15.1 Glucose 114 H Lactate Calcium 8.8 Magnesium 2.1 Total Bilirubin AST ALT Alkaline Phosphatase Total Protein Albumin Globulin Albumin/Globulin Ratio Procalcitonin Urine Color Yellow Urine Appearance Clear Urine pH 8.0 Ur Specific [place] 1.010 Urine Protein Negative Urine Glucose (UA) Negative Urine Ketones Negative Urine Occult Blood 2+ H Urine Nitrate Negative Urine Bilirubin Negative Urine Urobilinogen 0.2 Ur Leukocyte Esterase Trace H Urine RBC 1-5/hpf D Urine WBC 5-10/hpf H Urine Bacteria Moderate (10-30) H Ur Culture Indicated? Specimen cultured [facility] Medical History BPH (benign prostatic hyperplasia) History of open sigmoidectomy Methamphetamine abuse Opioid use disorder Surgical History History of facial surgery (2006) S/P cystoscopy with ureteral stent placement Family History Brother Age: 50 Mental health problem Mother Age: 73 Hypertension Asthma Social History household members: friend(s) Tobacco & Substance Use Smoking Status: Current every day smoker alcohol intake: current Assessment & Plan Assessment and plan (1) Abdominal abscess: Status: Acute Assessment & Plan narrative: 56-year-old man with a abdominal wall abscess 2 weeks status post sigmoid colectomy for colovesicular fistula. Imaging reviewed from CT yesterday demonstrates a 13 cm fluid collection within the subcutaneous tissue of the abdominal wall. Discussed with the patient recommendations for proceeding with incision and drainage of abdominal wall abscess.. Overview of the operation discussed. Operative risks including bleeding continued infection were discussed. Questions have been answered. He provides his written and verbal consent to proceed.
--- NOTE | 2022-08-31 08:50 | SUR.HOLD ---
Late entry: Patient to PACU holding area from room 224 with pre-op nursing staff. Drowsy but arousable; following all commands; AAO X 3; cooperative. Patient knows the date, the month and the year. Patient can verbalize reason for surgery. Joseph and Dr Muro at bedside to obtain verbal consent for surgery. Consents witnessed and signed by two nursing staff.
--- NOTE | 2022-08-31 08:55 | SUR.OPER ---
Supine on padded OR bed, head on pillow, arms secured on padded arm boards at <90 degrees abduction, legs uncrossed, safety belt at thigh, tape over blanket over lower legs.
--- NOTE | 2022-08-31 09:30 | PM.OP.1 ---
Operative Date/Time/Diagnoses Date of procedure: 08/31/22 Time of procedure: 09:31 Pre-op diagnosis: abominal wall abscess Post-op diagnosis: other (Abdominal wall abscess, fascial dehiscence) Procedure & Clinicians Procedure: Incision and drainage of abdominal wall abscess Exploratory laparotomy Same procedure as scheduled: Yes Indications: 56-year-old man with a colovesicular fistula 2 weeks status post open sigmoid colectomy who has developed an abdominal wall abscess. Surgeon: Med Muro Anesthesia Type: General Operative Notes Findings: 2 cm fascial dehiscence defect near the umbilicus. Abdominal wall abscess within the subcutaneous tissue Specimen(s): other (Abdominal abscess) Estimated Blood Loss (mL): 10 Procedure in detail: Patient was brought to the operating room placed supine on the table. Bilateral lower extremity compression devices were applied. General anesthesia was induced he was intubated with an endotracheal tube. He had received antibiotics prior to skin incision. He was prepped and draped in sterile fashion and a time-out was performed. The lower midline incision was partially opened using a knife. The subcutaneous tissue was divided and with this there was a gush of fluid. It was turbid and cultures were obtained. There was a developing abscess within the subcutaneous tissue which was debrided and then the Pulsavac was used. The fascia was examined and there was an approximally 2 cm fascial dehiscence near the top of the incision by the umbilicus. The abdomen was irrigated and then the fascia was closed with a 1. PDS suture. Given the infection of the abdominal wall the skin and subcutaneous tissue were closed with 1. Nylon suture in interrupted fashion in order for it to drain as needed. Clean gauze dressing was placed over the wound. He was extubated and transferred to recovery in stable condition. Complications: none Post-operative Condition: stable Disposition: Acute Care
[2022-08-31] MEDS: VANCOMYCIN 1,250 MG/250 ML PIGGYBACK 250 MG IV (10:33)
[2022-08-31] MEDS: LACTATED RINGERS 1,000 ML 21 ML IV (11:35)
--- NOTE | 2022-08-31 13:11 | P.CONS_ITS ---
History of Present Illness Consult details Date Patient Seen: 08/31/22 Time Patient Seen: 12:50 Chief complaint: Fit for Usp-Swollen Testicle,Need cath removed Reason for consult: Retained left ureteral stent Requesting provider: Silver Simpson Narrative: The patient is a 56-year-old male admitted through the ED 08/30/2022 for further evaluation management of abdominal wall pain, warmth, tenderness. He is status post cystoscopy and placement of left ureteral stent 08/15/2022 for concerns regarding possible intraoperative, iatrogenic thermal injury to left ureter in the vicinity of the common iliac vasculature. The patient did not show for Bright catheter removal following cystogram in the Urology Clinic proximally 1 week ago. Further attempts to contact the patient telephonically went without call back or response. Contrast CTs 08/25/2022 and 08/30/2022 show no evidence of left ureteral extravasation or urinoma. Left ureteral stent is appropriately positioned. Unfortunately, the patient was admitted to hospitalist service, general surgery was consulted, and the patient has already gone to OR and return for exploration, incision and drainage of superficial abdominal wall abscess. Meds Home Medications and Allergies Home Medications Medication Instructions Recorded Confirmed Type acetaminophen 325 mg capsule 650 mg PO QID PRN pain #60 caps 08/18/22 08/25/22 Rx (Tylenol) docusate sodium 100 mg capsule 100 mg PO BID #30 caps 08/18/22 08/25/22 Rx (Colace) ibuprofen 200 mg tablet 400 mg PO Q6H #60 tabs 08/18/22 08/25/22 Rx ondansetron 4 mg disintegrating 4 mg PO Q8H #10 tabs 08/18/22 08/25/22 Rx tablet oxycodone 5 mg tablet 5 mg PO Q6H PRN pain #20 tabs 08/18/22 08/25/22 Rx amoxicillin 500 mg-potassium 1 tab PO Q12H #20 tabs 08/23/22 08/25/22 Rx clavulanate 125 mg tablet (Augmentin) Allergies Allergy/AdvReac Type Severity Reaction Status Date / Time No Known Drug Allergies Allergy Verified 08/25/22 20:06 Review of Systems Review of Systems ROS: Yes All systems reviewed with the patient and are negative except as otherwise documented Exam Vital Signs (past 8 hours): - 08/31/22 06:00 08/31/22 08:40 08/31/22 09:22 Temperature 98.5 F 96.6 F L Pulse Rate 64 56 L Respiratory Rate 16 17 Blood Pressure 138/85 134/92 H Pulse Oximetry 97 95 96 Oxygen Delivery Method Room Air Room Air Room Air Oxygen Flow Rate 97 08/31/22 09:28 08/31/22 09:33 08/31/22 09:45 Temperature 98.2 F Pulse Rate 58 L 54 L 58 L Respiratory Rate 17 16 16 Blood Pressure 134/92 H 141/90 H 149/96 H Pulse Oximetry 97 98 98 Oxygen Delivery Method Room Air Room Air Room Air Oxygen Flow Rate 08/31/22 09:54 08/31/22 10:00 08/31/22 10:00 Temperature 98.2 F 97.4 F L Pulse Rate 78 57 L Respiratory Rate 16 14 Blood Pressure 124/74 138/85 Pulse Oximetry 98 98 98 Oxygen Delivery Method Room Air Room Air Oxygen Flow Rate 0 0 08/31/22 10:30 08/31/22 11:00 Temperature 97.4 F L 97.5 F L Pulse Rate 52 L 55 L Respiratory Rate 16 16 Blood Pressure 150/91 H 148/84 H Pulse Oximetry 96 95 Oxygen Delivery Method Oxygen Flow Rate 0 0 Oxygen Delivery Method Room Air Oxygen Flow Rate 0 Objective Labs 08/31/22 04:20 08/31/22 04:20 Labs: Laboratory Results - last 24 hr 08/30/22 08/30/22 08/30/22 16:35 16:35 16:35 WBC 10.0 RBC 3.42 L Hgb 9.9 L Hct 30.1 L MCV 88.2 MCH 29.0 MCHC 32.9 RDW 15.6 H Plt Count 630 H Neut % (Auto) 67.1 Lymph % (Auto) 22.1 L [place] % (Auto) 5.7 Eos % (Auto) 4.2 H Baso % (Auto) 0.9 Neut # (Auto) 6700 Lymph # (Auto) 2200 [place] # (Auto) 600 Eos # (Auto) 400 Baso # (Auto) 100 Sodium 135 L Potassium 3.8 Chloride 99 Carbon Dioxide 29 BUN 12 Creatinine 0.53 L Estimated GFR > 60 BUN/Creatinine Ratio 22.6 H Glucose 104 H Lactate 0.8 Calcium 8.5 Magnesium Total Bilirubin 0.1 L AST 23 ALT 23 Alkaline Phosphatase 102 Total Protein 7.1 Albumin 3.5 Globulin 3.6 Albumin/Globulin Ratio 1.0 Procalcitonin 0.05 Urine Color Urine Appearance Urine pH Ur Specific [place] Urine Protein Urine Glucose (UA) Urine Ketones Urine Occult Blood Urine Nitrate Urine Bilirubin Urine Urobilinogen Ur Leukocyte Esterase Urine RBC Urine WBC Urine Bacteria Ur Culture Indicated? 08/30/22 08/31/22 08/31/22 17:35 04:20 04:20 WBC 8.9 RBC 4.15 L Hgb 12.0 L Hct 36.2 L MCV 87.2 MCH 28.9 MCHC 33.2 RDW 15.2 H Plt Count 706 H Neut % (Auto) 64.6 Lymph % (Auto) 24.6 L [place] % (Auto) 6.2 Eos % (Auto) 3.6 Baso % (Auto) 1.0 Neut # (Auto) 5800 Lymph # (Auto) 2200 [place] # (Auto) 600 Eos # (Auto) 300 Baso # (Auto) 100 Sodium 137 Potassium 4.1 Chloride 103 Carbon Dioxide 29 BUN 8 L Creatinine 0.53 L Estimated GFR > 60 BUN/Creatinine Ratio 15.1 Glucose 114 H Lactate Calcium 8.8 Magnesium 2.1 Total Bilirubin AST ALT Alkaline Phosphatase Total Protein Albumin Globulin Albumin/Globulin Ratio Procalcitonin Urine Color Yellow Urine Appearance Clear Urine pH 8.0 Ur Specific [place] 1.010 Urine Protein Negative Urine Glucose (UA) Negative Urine Ketones Negative Urine Occult Blood 2+ H Urine Nitrate Negative Urine Bilirubin Negative Urine Urobilinogen 0.2 Ur Leukocyte Esterase Trace H Urine RBC 1-5/hpf D Urine WBC 5-10/hpf H Urine Bacteria Moderate (10-30) H Ur Culture Indicated? Specimen cultured [facility] Medical History BPH (benign prostatic hyperplasia) History of open sigmoidectomy Methamphetamine abuse Opioid use disorder Surgical History History of facial surgery (2006) S/P cystoscopy with ureteral stent placement Family History Brother Age: 50 Mental health problem Mother Age: 73 Hypertension Asthma Social History household members: friend(s) Tobacco & Substance Use Smoking Status: Current every day smoker alcohol intake: current Assessment & Plan Assessment and plan (1) Retained ureteral stent: Status: Acute Plan 1. Discussion, informed consent, and scheduling for CYSTOSCOPY/REMOVAL RETAINED LEFT URETERAL STENT. Explained to patient rationale and indication for stent removal now after adequate ureteral healing time with internal diversion. Explained common side effects, possible complications, and postoperative recovery expectations. He had no further questions.
[2022-08-31] MEDS: metroNIDAZOLE 500 MG/100 ML PIGGYBACK 100 MG IV ×2 (13:38→21:18)
--- NOTE | 2022-08-31 14:22 | PC.NURSE ---
Patients CIWA a O at this time. He is groggy and sleeping, but awakens easily when spoken too. He is comfortable at this time.
--- NOTE | 2022-08-31 15:10 | PM.PN.1 ---
Subjective Subjective Interval history: 56 M admitted with surgical wound abscess, s/p I&D with surgery today. Discussed with urology whom would like to do cystoscopy and stent removal, as patient did not follow up in clinic. Overnight received ativan for withdrawal symptoms, sleepy today but seen after I&D in the OR. Exam Vital Signs (past 8 hours): - 08/31/22 08:40 08/31/22 09:22 08/31/22 09:28 Temperature 98.5 F 96.6 F L Pulse Rate 64 56 L 58 L Respiratory Rate 16 17 17 Blood Pressure 138/85 134/92 H 134/92 H Pulse Oximetry 95 96 97 Oxygen Delivery Method Room Air Room Air Room Air Oxygen Flow Rate 97 08/31/22 09:33 08/31/22 09:45 08/31/22 09:54 Temperature 98.2 F 98.2 F Pulse Rate 54 L 58 L 78 Respiratory Rate 16 16 16 Blood Pressure 141/90 H 149/96 H 124/74 Pulse Oximetry 98 98 98 Oxygen Delivery Method Room Air Room Air Room Air Oxygen Flow Rate 08/31/22 10:00 08/31/22 10:00 08/31/22 10:30 Temperature 97.4 F L 97.4 F L Pulse Rate 57 L 52 L Respiratory Rate 14 16 Blood Pressure 138/85 150/91 H Pulse Oximetry 98 98 96 Oxygen Delivery Method Room Air Oxygen Flow Rate 0 0 0 08/31/22 11:00 08/31/22 13:37 Temperature 97.5 F L 97.5 F L Pulse Rate 55 L 60 Respiratory Rate 16 20 Blood Pressure 148/84 H 133/79 Pulse Oximetry 95 97 Oxygen Delivery Method Oxygen Flow Rate 0 0 Oxygen Delivery Method Room Air Oxygen Flow Rate 0 Narrative Exam Narrative: General:? Patient is well developed and well nourished, in no distress at this time, somnolent but arousable HEENT:? Normocephalic, atraumatic, extraocular muscles intact, oral pharynx is clear and mucous membranes are moist. Poor dentition. Neck: supple and symmetric, trachea is midline, no cervical adenopathy. Negative for JVD Chest:? Normal AP diameter and contour without kyphoscoliosis, no tachypnea, equal chest rise bilaterally. Lungs:? CTA b/l no wheezing rhonchi or rales. Cardio:?RRR no m/r/g. Abdomen: soft, non-distended, dressing c/d/i after I&D : childress in place, improved scrotal swelling and no erythema Musculoskeletal:? Muscle strength and tone are equal within normal limits, no deformity. Extremities: No edema or joint effusions. No cyanosis or clubbing. Skin:? Pale,? Warm to touch,dry and intact without rashes, ulcerations or petechiae.? Neuro:? Alert and orientated x3 but sleepy,? sensation to touch intact in all extremities, no gross deficits noted of cranial nerves. Psych:? Patient has a well-kept appearance, appropriate affect, mental status attitude thought context and judgment are appropriate for age. Objective Labs 08/31/22 04:20 08/31/22 04:20 Labs: Laboratory Results - last 24 hr 08/30/22 08/30/22 08/30/22 16:35 16:35 16:35 WBC 10.0 RBC 3.42 L Hgb 9.9 L Hct 30.1 L MCV 88.2 MCH 29.0 MCHC 32.9 RDW 15.6 H Plt Count 630 H Neut % (Auto) 67.1 Lymph % (Auto) 22.1 L [place] % (Auto) 5.7 Eos % (Auto) 4.2 H Baso % (Auto) 0.9 Neut # (Auto) 6700 Lymph # (Auto) 2200 [place] # (Auto) 600 Eos # (Auto) 400 Baso # (Auto) 100 Sodium 135 L Potassium 3.8 Chloride 99 Carbon Dioxide 29 BUN 12 Creatinine 0.53 L Estimated GFR > 60 BUN/Creatinine Ratio 22.6 H Glucose 104 H Lactate 0.8 Calcium 8.5 Magnesium Total Bilirubin 0.1 L AST 23 ALT 23 Alkaline Phosphatase 102 Total Protein 7.1 Albumin 3.5 Globulin 3.6 Albumin/Globulin Ratio 1.0 Procalcitonin 0.05 Urine Color Urine Appearance Urine pH Ur Specific [place] Urine Protein Urine Glucose (UA) Urine Ketones Urine Occult Blood Urine Nitrate Urine Bilirubin Urine Urobilinogen Ur Leukocyte Esterase Urine RBC Urine WBC Urine Bacteria Ur Culture Indicated? 08/30/22 08/31/22 08/31/22 17:35 04:20 04:20 WBC 8.9 RBC 4.15 L Hgb 12.0 L Hct 36.2 L MCV 87.2 MCH 28.9 MCHC 33.2 RDW 15.2 H Plt Count 706 H Neut % (Auto) 64.6 Lymph % (Auto) 24.6 L [place] % (Auto) 6.2 Eos % (Auto) 3.6 Baso % (Auto) 1.0 Neut # (Auto) 5800 Lymph # (Auto) 2200 [place] # (Auto) 600 Eos # (Auto) 300 Baso # (Auto) 100 Sodium 137 Potassium 4.1 Chloride 103 Carbon Dioxide 29 BUN 8 L Creatinine 0.53 L Estimated GFR > 60 BUN/Creatinine Ratio 15.1 Glucose 114 H Lactate Calcium 8.8 Magnesium 2.1 Total Bilirubin AST ALT Alkaline Phosphatase Total Protein Albumin Globulin Albumin/Globulin Ratio Procalcitonin Urine Color Yellow Urine Appearance Clear Urine pH 8.0 Ur Specific [place] 1.010 Urine Protein Negative Urine Glucose (UA) Negative Urine Ketones Negative Urine Occult Blood 2+ H Urine Nitrate Negative Urine Bilirubin Negative Urine Urobilinogen 0.2 Ur Leukocyte Esterase Trace H Urine RBC 1-5/hpf D Urine WBC 5-10/hpf H Urine Bacteria Moderate (10-30) H Ur Culture Indicated? Specimen cultured [facility] Medical History BPH (benign prostatic hyperplasia) History of open sigmoidectomy Methamphetamine abuse Opioid use disorder Surgical History History of facial surgery (2006) S/P cystoscopy with ureteral stent placement Family History Brother Age: 50 Mental health problem Mother Age: 73 Hypertension Asthma Social History household members: friend(s) Smoking Status: Current every day smoker alcohol intake: current Assessment & Plan Assessment & Plan narrative: 1. Post operative wound infection and abscess, abdomen - continue ceftriaxone, flagyl, and vancomycin. Most likely superficial wound infection but cover for anaerobes given recent surgical history. - appreciate surgical managment, now s/p I&D on 08/31 - pain control with opiates 2. Recent ureteral stent placement due to thermal injury (iatrogenic) - continue childress - urology to perform cystoscopy and stent removal tomorrow after discussion today. - NPO @ [place] 3. Polysubstance abuse and opiate withdrawal - continue opiates for pain control, though will reduce today and add methadone 4. Acute cystitis associated with childress catheter, present on admission - continue antiboitics as noted above - follow up cultures, currently without growth at 1 day. - some concern for still a fistulous tract based on imaging reports, will see what bacteria grow ultimately from cultures. Continue antibiotics as above. 5. Anemia - presume secondary to recent surgical procedures, improved somewhat from his recent hospitalization, and much improved today. 6. Thrombocytosis - Plt 630, suspect reactive. Will follow. Code: Full, surrogate is patient's friend Bernard DVT: SCD's, hold ppx given possible surgical interventions Dispo: admitted as an inpatient as his stay is expected to exceed two midnights, anticipate discharge home in 1-2 days once improved from opiate withdrawal. Discussed with general surgery and urology today. I have utilized all available immediate resources to obtain, update, or review the patient's current medications. Quality MIPS - Admit I confirm the patient?s Advance Care Plan is present, Code status is documented, Surrogate decision maker is in patient?s record [If Yes, STOP here]: Yes
--- NOTE | 2022-08-31 15:15 | CM.DANOTE ---
DCP Brief Assessment: Patient is a 56yo Male with a history of opioid and methamphetamine abuse who had a recent colovesical fistula with repair and then readmission for cellulitis and discharged on 08/26/2022. He presents with law enforcement for fit for assisted clearance. Patient still has catheter in place (ER report, 08/30/22). Payer: [employer] and Medicaid PCP: [facility] [employer] brought patient into the ED for a fit for assisted assessment. Per ED note, provider stated Patient was not clinically cleared for incarceration and documentation was provided to law enforcement. Per hospitalist, Shanda is going to be removing stent tomorrow morning due to infection. When CM team tried to meet with patient, he was sleeping very soundly. Per previous CM notes, patient has been provided resources for homeless shelters, transportation, food, and other community resources. Plan: Home when medically cleared. CM team will continue to follow closely and meet with him tomorrow for further in depth assessment. ELISE De La Rosa Discharge Planning/Care Management CM Discharge Assessment Start: 08/31/22 15:00 Freq: Status: Active Protocol: Document 08/31/22 15:00 (Rec: 08/31/22 15:15 [id number]) Discharge Planning Assessment Assigned Insurance And Financial Services Agent ELISE De La Rosa DPOA/Assigned Designee Name NA Contact Information NA Advance Directives? No History Provided By Medical Record Has Patient been admitted in last 30 Yes days? Comment 08/25/22 and 08/09/22 Prior Living Arrangements Homeless Comment from previous assessment, recently loss trailer Type of transporation used prior to Public Transportation admit Comment from previous assessment, uses bus when available Independent with ADL's Yes Is patient alert and oriented? Yes Discharge Plan Home Referrals Initiated None needed Whiteboard Updated in Patient Room with No name and ext. # of Insurance And Financial Services Agent Review Status In Process Next Review Type Continued Stay Review
[2022-08-31] MEDS: OXYCODONE IR 5 MG TABLET PO (16:51)
[2022-08-31 17:37] LABS: Vancomycin Trough 9.7 ug/mL (10-20)
[2022-08-31] MEDS: VANCOMYCIN 1,250 MG/250 ML PIGGYBACK 200 MG IV (18:14)
[2022-08-31 20:25] LABS: Vancomycin Peak 42.9 ug/mL (20-40)
[2022-08-31] MEDS: cefTRIAXone 2,000 MG in SODIUM CHLORIDE 0.9% 100 ML 200 MG IV (21:17)
[2022-09-01] VITALS (17 sets, daily range): BP systolic 96–144; BP diastolic 57–86; PULSE 57–76; RESP 11–17; TEMP 36.2–37.1; O2SAT 95–99
[2022-09-01] MEDS: VANCOMYCIN 1,250 MG/250 ML PIGGYBACK 250 MG IV ×2 (01:04→08:50)
[2022-09-01] MEDS: METHADONE 10 MG TABLET PO ×2 (02:02→02:03)
--- NOTE | 2022-09-01 03:26 | PC.NURSE ---
Addendum entered by Janeth Vaca R.N. 09/01/22 03:46: Critical Vanco peak=42.9. Discrepancy with timing of Vancomycin given in day shift 08/31. Notified Nurys in pharmacy. Okay to give 0100 Vancomycin per pharmacy. Original Note: CIWA=1. 2100 scheduled Methadone held r/t pt asleeping. Pt woke up with c/o pain 01/09 administered Methadone at 0300. Pt appears comfortable. Vitals stable. NPO since midnight. Plans to go to OR at 1000 09/01. Bright draining freely and WNL. Redressed right hand IV for patency. 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
[2022-09-01] MEDS: metroNIDAZOLE 500 MG/100 ML PIGGYBACK 100 MG IV (05:06)
[2022-09-01 05:07] LABS: Add Manual Diff / Slide Review NO; Basophils Absolute Auto 100 /uL (0-100); Basophils Percent Auto 0.4 % (0-2); Eosinophils Absolute Auto 200 /uL (0-450); Eosinophils Percent Auto 1.1 % (2-4); Hematocrit 33.4 % (41-53); Hemoglobin 10.9 g/dL (13.5-17.5); Lymphocytes Absolute Auto 2100 /uL (1100-4500); Lymphocytes Percent Auto 14.7 % (25-40); Mean Corpuscular HGB Conc 32.5 % (30-36); Mean Corpuscular Hemoglobin 28.6 PG (26-34); Monocytes Absolute Auto 700 /uL (0-900); Monocytes Percent Auto 4.9 % (3-14); Neutrophils Absolute Auto 11100 /uL (1500-7000); Neutrophils Percent Auto 78.9 % (50-75); Red Cell Distribution Width 15.6 % (11.6-14.8)
[2022-09-01 05:08] LABS: BUN Creatinine Ratio 17.5 (6-22); Blood Urea Nitrogen 10 mg/dL (9-20); Calcium 8.2 mg/dL (8.4-10.2); Carbon Dioxide 27 mmol/L (22-32); Chloride 104 mmol/L (98-107); Estimated Glomerular Filt Rate > 60 mL/min (>60); Glucose 102 mg/dL (70-100); HEMOLYSIS < 15 (0-50); Magnesium 1.8 mg/dL (1.6-2.3); Potassium 4.2 mmol/L (3.4-5.1); Sodium 136 mmol/L (137-145)
[2022-09-01] MEDS: OXYCODONE IR 5 MG TABLET PO ×2 (06:05→08:53)
[2022-09-01 06:42] LABS: Hypochromasia 1+
[2022-09-01 06:43] LABS: Platelet Count 757 X10^3/uL (150-400)
[2022-09-01] MEDS: THIAMINE 100 MG TABLET PO (08:53)
[2022-09-01] MEDS: FOLIC ACID 1 MG TABLET PO (08:54)
[2022-09-01] MEDS: MULTIVITAMIN 1 TABLET 1 TAB PO (08:54)
--- NOTE | 2022-09-01 09:18 | PM.PREOP ---
Pre-operative Note COVID-19 Criteria for continued procedure: Possibility delay results in more complex future surgery or treatment, Delay expected to result in less-positive ultimate med/surg outcome and Non-surgical alternatives not available or appropriate per current SOC Interval Note History & Physical reviewed/Exam performed by Physician: Yes Changes to H&P: No
[2022-09-01] MEDS: LACTATED RINGERS 1,000 ML 42 ML IV ×2 (09:20→10:22)
[2022-09-01] MEDS: GENTAMICIN 340 MG in SODIUM CHLORIDE 0.9% 100 ML 108.5 MG IV (09:45)
--- NOTE | 2022-09-01 09:58 | SUR.OPER ---
Lithotomy on padded OR bed, head on pillow, arms secured on padded arm boards at <90 degrees abduction. Legs secured in padded yellow fins stirrups.
--- NOTE | 2022-09-01 10:08 | P.OP_ITS ---
Operative Date/Time/Diagnoses Date of procedure: 09/01/22 Time of procedure: 09:45 Pre-op diagnosis: 1. Retained left ureteral stent. 2. Retained Bright catheter status post takedown and repair of colovesical fistula. Post-op diagnosis: same Procedure & Clinicians Procedure: 1. Cystoscopy/removal retained left ureteral stent. 2. Bright catheter removal. Same procedure as scheduled: Yes Indications: 1. Retained left ureteral stent. 2. Indwelling retained Bright catheter. Surgeon: Macario Lim Click Yes if Unassisted: Yes Anesthesia Type: General Operative Notes Findings: 1. Urethra-normal caliber without annular stricture or lesion. 2. External sphincter-coapted with normal overlying urothelium. 3. Prostate-3.5-4 cm length with mild lateral lobe hyperplasia. 4. Bladder-normal urothelium throughout with the exception of the vicinity of the indwelling distal left ureteral stent coil there is associated erythema and bullous edema. Closure Type: not applicable Specimen(s): none sent Estimated Blood Loss (mL): 0 Blood products transfused: none Procedure in detail: The patient was positioned in supine was administered general anesthesia. Lower abdomen, genitalia, and groin then prepped and in sterile. Twenty-two Yi panendoscope was then passed the lower urinary tract findings as an alligator foreign body grasper was then utilized to engage the distal portion of the ureteral. The stent was then incident. The patient was then repositioned in supine, was awakened, transferred to [facility] and then transported recovery in stable condition. Complications: none Post-operative Condition: stable Disposition: Acute Care Plan for aftercare: No specific follow-up required in Urology Clinic. Patient may be discharged from hospitalist service from standpoint.
--- NOTE | 2022-09-01 10:53 | P.DS_ITS ---
History of Present Illness History of Present Illness Date Patient Seen: 09/01/22 Time Patient Seen: 10:53 Chief complaint: Fit for Pen[facility]iary-Swollen Testicle,Need cath removed Narrative: This is a 56 year old male with PMH of opiate and methamphetamine abuse who presented initially for a fit for retirement clearance. He recently has been admitted for a found colovesicular fistula on 08/09/22, underwent ex-lap with partial sigmoidectomy and primary repair of his bladder. This was complicated by a thermal ureteral injury which was repaired intra-operatively and though no extravasation was seen a stent was placed for precautionary measures. He continues to have a childress catheter in place. Per review of his outpatient documentation, he was started on augmentin for a post operative cellulitis around his incision site on 08/23. He was then admitted on 08/26 for IV antibiot ics with a superficial cellulitis and concern for abscess, he was discharged shortly after and returns today for a fit for retirement clearance. He was continued on amoxicillin-pot clavulanate 500/125 mg BID by the surgeon after discharge on 08/26. He complains of worsening abdominal pain and has had spreading redness, swelling around his abdomen, but also of his testicles and diarrhea. He denies any fever or chills. He last used fentanyl today, usually takes 2-3 blueys a day, and methamphetamine was also used today. He reports prior episodes of opiate withdrawal when he stops using opiates. In the emergency room, the patient's vitals were unremarkable. Lab evaluation notable for no leukocytosis, mild anemia with Hg of 9.9, and Plt of 630. Chemistries were unremarkable. UA positive for infection with 1-5 RBC, 5-10 WBC and moderate bacteria and was reflexed for culture. Surgery service requested admission to hospitalist service given patient's substance abuse issues. He was given zosyn and vancomycin, admitted to medicine. Discharge Providers Provider Date of admission: 08/30/22 17:42 Discharge Date: 09/01/22 Primary care physician: Doctor Slick MD Discharge provider: Silver Simpson DO Summary Hospital Course Discharge Diagnosis: 1. Post operative wound infection and abscess, abdomen 2. Recent ureteral stent placement due to thermal injury (iatrogenic) 3. Polysubstance abuse and opiate withdrawal 4. Acute cystitis associated with childress catheter, present on admission 5. Anemia, improved, likely post surgical due to acute blood loss 6.? Thrombocytosis, likely reactive Hospital Course: 56 M admitted with post operative wound infection and abscess of his abdomen after recent partial sigmoidectomy and ureteral stent placement (For suspected thermal injury). He underwent surgical I&D in the OR on the morning of 08/31, cultures are still pending at the time of discharge but he had improvement with I&D, and broad antibiotics. Prescribed cephalexin and doxycyline to continue as an outpatient at discharge. He developed symptoms of opiate withdrawal while admitted, and was getting opiates for pain control, though these were lessened and he was started on methadone. Urology was also consulted and performed a cystoscopy with stent retrieval on 09/01, childress catheter was removed and patient was voiding adequately prior to discharge. UA was noted to be positive on admission, though cultures are without growth though any cystitis would likely be treated with antibiotics for his abscess. Time Spent with Patient Time spent: Greater than 30 minutes Exam Vital Signs (past 8 hours): - 09/01/22 04:00 09/01/22 06:00 09/01/22 08:53 Temperature 97.2 F L 98.7 F Pulse Rate 70 Respiratory Rate 15 Blood Pressure 144/84 H Pulse Oximetry 95 95 Oxygen Delivery Method Room Air Oxygen Flow Rate 09/01/22 08:00 09/01/22 10:06 09/01/22 10:11 Temperature 98.2 F 97.6 F Pulse Rate 71 71 65 Respiratory Rate 16 16 16 Blood Pressure 142/86 H 97/57 L 101/59 L Pulse Oximetry 98 95 95 Oxygen Delivery Method Room Air Room Air Oxygen Flow Rate 0 09/01/22 10:15 09/01/22 10:15 09/01/22 10:20 Temperature Pulse Rate 61 61 57 L Respiratory Rate 12 13 12 Blood Pressure 96/64 96/64 97/67 Pulse Oximetry 95 96 96 Oxygen Delivery Method Room Air Room Air Room Air Oxygen Flow Rate 09/01/22 10:27 09/01/22 10:32 Temperature Pulse Rate 62 62 Respiratory Rate 11 L 12 Blood Pressure 101/68 120/76 Pulse Oximetry 98 98 Oxygen Delivery Method Room Air Room Air Oxygen Flow Rate Oxygen Delivery Method Room Air Oxygen Flow Rate 0 Narrative Exam Narrative: General:? Patient is well developed and well nourished, in no distress at this time HEENT:? Normocephalic, atraumatic, extraocular muscles intact, oral pharynx is clear and mucous membranes are moist. Poor dentition. Neck: supple and symmetric, trachea is midline, no cervical adenopathy. Negative for JVD Chest:? Normal AP diameter and contour without kyphoscoliosis, no tachypnea, equal chest rise bilaterally. Lungs:? CTA b/l no wheezing rhonchi or rales. Cardio:?RRR no m/r/g. Abdomen: soft, non-distended, dressing c/d/i after I&D : childress removed, improved scrotal swelling and no erythema Musculoskeletal:? Muscle strength and tone are equal within normal limits, no deformity. Extremities: No edema or joint effusions. No cyanosis or clubbing. Skin:? Pale,? Warm to touch,dry and intact without rashes, ulcerations or petechiae.? Neuro:? Alert and orientated x3? sensation to touch intact in all extremities, no gross deficits noted of cranial nerves. Psych:? Patient has a well-kept appearance, appropriate affect, mental status attitude thought context and judgment are appropriate for age. Objective Labs 09/01/22 04:23 09/01/22 04:23 Labs: Laboratory Results - last 24 hr 08/31/22 08/31/22 09/01/22 16:54 19:30 04:23 WBC 14.0 H D RBC 3.80 L Hgb 10.9 L Hct 33.4 L MCV 88.0 MCH 28.6 MCHC 32.5 RDW 15.6 H Plt Count 757 H Neut % (Auto) 78.9 H Lymph % (Auto) 14.7 L [place] % (Auto) 4.9 Eos % (Auto) 1.1 L Baso % (Auto) 0.4 Neut # (Auto) 25206 H Lymph # (Auto) 2100 [place] # (Auto) 700 Eos # (Auto) 200 Baso # (Auto) 100 RBC Morphology Not Reportable Hypochromasia 1+ H Sodium Potassium Chloride Carbon Dioxide BUN Creatinine Estimated GFR BUN/Creatinine Ratio Glucose Calcium Magnesium Vancomycin Peak 42.9 H* Vancomycin Trough 9.7 L 09/01/22 04:23 WBC RBC Hgb Hct MCV MCH MCHC RDW Plt Count Neut % (Auto) Lymph % (Auto) [place] % (Auto) Eos % (Auto) Baso % (Auto) Neut # (Auto) Lymph # (Auto) [place] # (Auto) Eos # (Auto) Baso # (Auto) RBC Morphology Hypochromasia Sodium 136 L Potassium 4.2 Chloride 104 Carbon Dioxide 27 BUN 10 Creatinine 0.57 L Estimated GFR > 60 BUN/Creatinine Ratio 17.5 Glucose 102 H Calcium 8.2 L Magnesium 1.8 Vancomycin Peak Vancomycin Trough PFSH Medical History BPH (benign prostatic hyperplasia) History of open sigmoidectomy Methamphetamine abuse Opioid use disorder Surgical History History of facial surgery (2006) S/P cystoscopy with ureteral stent placement Family History Brother Age: 50 Mental health problem Mother Age: 73 Hypertension Asthma Social History household members: friend(s) Smoking Status: Current every day smoker alcohol intake: current Discharge Plan Discharge Plan Patient Disposition: Home Provider Discharge Comment: You were admitted to the hospital with an abscess under your recent incision site, this was drained by the general surgeons. You also had a stent removed by the urologists. Your antiboitics were changed, continue another week of these for the abscess. Recommend follow up with methadone clinic for further dosing if you desire. Discharge orders & Medications Prescriptions: New cephalexin 500 mg capsule 500 mg PO QID 7 Days Qty: 28 0RF doxycycline hyclate 100 mg tablet 100 mg PO BID 7 Days Qty: 14 0RF Continued ibuprofen 200 mg tablet 400 mg PO Q6H Qty: 60 0RF docusate sodium [Colace] 100 mg capsule 100 mg PO BID Qty: 30 0RF acetaminophen [Tylenol] 325 mg capsule 650 mg PO QID PRN (Reason: pain) Qty: 60 0RF ondansetron 4 mg tablet,disintegrating 4 mg PO Q8H Qty: 10 0RF Discontinued amoxicillin-pot clavulanate [Augmentin] 500-125 mg tablet 1 tab PO Q12H Qty: 20 0RF Follow up/Referrals: Miscellaneous,DoctorMD [Primary Care Provider] - Activity Restrictions/Additional Instructions: Diet/Activity/Treatments Diet: Diet as Tolerated Activity: As tolerated Skin/Wound/Dressing Care Dressing: Continue dressing changes as needed if soaked, follow up with general surgery clinic Visit Report/Discharge Packet Instructions: DI for Heart Failure, DI for Cystoscopy, DI for Incision and Drainage, [facility]: Wound Care Stand Alone Forms: Patient Portal/API, Stroke Signs & Symptoms Discharge Data Primary Care Provider: Miscellaneous,Doctor
[2022-09-01] MEDS: METHADONE 10 MG TABLET 20 MG PO (11:18)
--- NOTE | 2022-09-01 11:22 | PC.NURSE ---
Pt arrived back to the unit from the PACU at 1041AM. Pt A&Ox4, able to make needs known. Vitals taken and continuing to monitor.
--- NOTE | 2022-09-01 11:42 | CM.DPC ---
DCP Continued: From nursing staff, patient is looking better today than he was yesterday. ROUTE INSPECTOR entered room and introduced self and role. Patient was A/Ox4 and was sitting up in bed resting. Patient reports being excited to leave. Patient will return to his friend, Bernard's house. Patient reports no needs from this author. ROUTE INSPECTOR updated white board with Youth Agentcontact center manager information in the event patient has questions for us. Patient denied need for transportation. Plan: patient will d/c to friend's house when ready. CM Team will continue to follow and support as necessary. ELISE De La Rosa
[2022-09-01] MEDS: ACETAMINOPHEN 325 MG TABLET 650 MG PO (12:07)
[2022-09-01] MEDS: IBUPROFEN 400 MG TABLET PO (12:07)
[2022-09-01] MEDS: AMOXICILLIN/CLAV 500/125 MG 1 TAB PO (12:08)
--- NOTE | 2022-09-01 14:38 | PC.NURSE ---
Pt discharged home. Pt is A&Ox4, pain controlled, able to make needs known, all questions answered. All belongings sent home with pt including phone, clothing, and shoes. Pt verbalized how to take his new medications including the two new abx and to stop the old abx, when to follow up with general surgery and when to call urology if needed, how to get in touch with methadone clinic if he chooses to follow up. This RN advised the pt to find a primary care provider.
--- NOTE | 2022-09-01 15:00 | PC.NURSE ---
After pt was discharged and had already left, staff phone the pt's cross necklace. Called the pt and left voicemail for the pt stating that his cross would be up at the main nurses station for him to pick up driver.
== END 2022-09-01 14:35 | disposition home or self-care (01) | DRG 711 ==
LOC: ED 17:40 → AC 17:43
PROVIDERS: Specialist; Surgery; Admitting Provider Internal Medicine; Emergency Provider Emergency Medicine; Family Provider Family Medicine; Referring Provider Emergency Medicine; Visit Provider Internal Medicine
PROC: 0W9F0ZZ Drainage of Abdominal Wall, Open Approach (ICD-10-PCS; principal; 2022-08-31 08:45)
PROC: 0TP98DZ Removal of Intraluminal Device from Ureter, Via Natural or Artificial Opening Endoscopic (ICD-10-PCS; principal; 2022-09-01 10:15)
DX: T81.41XA Infection following a procedure, superficial incisional surgical site, initial encounter (principal); T83.518A Infection and inflammatory reaction due to other urinary catheter, initial encounter; N30.00 Acute cystitis without hematuria; L02.211 Cutaneous abscess of abdominal wall; T81.32XA Disruption of internal operation (surgical) wound, not elsewhere classified, initial encounter; F11.13 Opioid abuse with withdrawal; F15.10 Other stimulant abuse, uncomplicated; F17.200 Nicotine dependence, unspecified, uncomplicated; Z20.822 Contact with and (suspected) exposure to COVID-19
CPT/HCPCS: 36415; 74177; 80048; 80053; 80202; 81001; 83605; 83735; 84145; 85025; 87040; 87070; 87075; 87077; 87086; 87186; 87205; 96365; 99284; J0330; J0696; J1885; J2060; J2405; J2543; J2704; J3010

== ENCOUNTER 2022-10-18 16:27 | Emergency (ER) | payer OTHER, MEDICAID, SELFPAY ==
[2022-09-12 15:52] VITALS: BMI 22.8
[2022-10-18 16:36] VITALS: BP 157/101; PULSE 78; RESP 20; TEMP 36.6; O2SAT 96; BMI 22.8
[2022-10-18 17:13] LABS: Add Manual Diff / Slide Review NO; Basophils Absolute Auto 100 /uL (0-100); Basophils Percent Auto 0.8 % (0-2); Eosinophils Absolute Auto 400 /uL (0-450); Eosinophils Percent Auto 3.9 % (2-4); Hematocrit 37.2 % (41-53); Hemoglobin 12.3 g/dL (13.5-17.5); Lymphocytes Absolute Auto 2700 /uL (1100-4500); Mean Corpuscular HGB Conc 33.2 % (30-36); Mean Corpuscular Hemoglobin 28.5 PG (26-34); Mean Corpuscular Volume 85.8 fL (80-100); Monocytes Absolute Auto 600 /uL (0-900); Monocytes Percent Auto 5.7 % (3-14); Neutrophils Absolute Auto 6000 /uL (1500-7000); Neutrophils Percent Auto 61.6 % (50-75); Platelet Count 330 X10^3/uL (150-400); Red Blood Cell Count 4.34 X10^6/uL (4.5-5.9); Red Cell Distribution Width 15.3 % (11.6-14.8); White Blood Cell Count 9.8 X10^3/uL (4.5-11.0)
[2022-10-18 17:14] VITALS: PULSE 71; RESP 14; O2SAT 96
[2022-10-18 17:20] LABS: Alanine Aminotransferase 25 IU/L (<50); Albumin 4.2 g/dL (3.5-5.0); Albumin Globulin Ratio 1.1 (1.0-2.8); Alkaline Phosphatase 119 U/L (38-126); Aspartate Aminotransferase 26 IU/L (17-59); BUN Creatinine Ratio 15.3 (6-22); Bilirubin Total 0.1 mg/dL (0.2-1.3); Blood Urea Nitrogen 11 mg/dL (9-20); Calcium 9.3 mg/dL (8.4-10.2); Carbon Dioxide 31 mmol/L (22-32); Chloride 102 mmol/L (98-107); Estimated Glomerular Filt Rate > 60 mL/min (>60); Glucose 78 mg/dL (70-100); HEMOLYSIS < 15 (0-50); Lipase 41 U/L (23-300); Potassium 4.3 mmol/L (3.4-5.1); Sodium 139 mmol/L (137-145); Total Protein 8.2 g/dL (6.3-8.2)
--- NOTE | 2022-10-18 17:20 | DI.CT.S_ITS ---
PROCEDURE: CT ABDOMEN PELVIS W CON INDICATIONS: peeing air h/o multiple abd surgeries TECHNIQUE: After the administration of intravenous contrast, axial sections acquired from the lung bases to the pubic symphysis. Coronal and sagittal reformats were performed. For radiation dose reduction, the following was used: automated exposure control, adjustment of mA and/or kV according to patient size. COMPARISON: [facility], CT, CT ABDOMEN PELVIS W CON, 08/30/2022, 16:30. FINDINGS: Image quality: Excellent. Lung bases: Unremarkable. Heart: No significant findings. ABDOMEN: Liver: Mild hepatomegaly. Anterior left lobe cyst. Gallbladder: Normal. Biliary ducts: No intrahepatic biliary dilatation. The extrahepatic common duct is chronically dilated but tapers at the pancreatic head. Pancreas: Unremarkable. Spleen: Unremarkable. Adrenal Glands: Unremarkable. Kidneys and Ureters: There are two areas in the left renal cortex upper pole demonstrating decreased attenuation and ill definition of the corticomedullary junction. There is a punctate nonobstructing calculus in the lower pole collecting system of the right kidney. Mild left hydroureter and slight distal urothelial enhancement. There is a probable punctate calcification in the left distal ureter a few cm above the UVJ. Stomach and Bowel: There is a moderately increased quantity of solid stool present. Sigmoid colon diverticula. Postsurgical changes of sigmoidectomy. Adjacent to the colorectal staple line, there is a well in capsulated collection of extraluminal gas which demonstrates a broad-based connection with the upper left aspect of the urinary bladder. There is also a thin linear blind-ending air containing tract in the left anterior lower quadrant. There is adjacent fascial thickening. Adjacent distal colonic wall thickening. But no acute inflammation. Interval removal of left pelvic drain. Peritoneum: Extraluminal gas as described is in capsulated. No free air. There is no free fluid or significant fluid collection. Ventral Wall: No hernias. Abdominal Nodes: No retroperitoneal or mesenteric adenopathy by size criteria. Vessels: Aorta and inferior vena cava are normal in size. PELVIS: Pelvic Organs: Interval removal of left pelvic drain. Interval removal of Bright catheter. Bladder: The left superior in lateral bladder wall remains thickened. There is no air within the urinary bladder at this point. Pelvic Nodes: No enlarged lymph nodes. Miscellaneous: No hernias are seen. Bones: Unremarkable. . IMPRESSION: 1. Persistent air containing tracts arising from the colorectal anastomosis and/or residual sigmoid colon suggestive of colovesical fistula. 2. Interval removal of pelvic drain. Resolution of prior pelvic abscess. No current inflammation. 3. There are two small areas in the left renal parenchyma of cortical hypodensity suspicious for pyelonephritis. There is minor hydroureteronephrosis. Probable punctate distal ureteral calcification. Dictated by: Susi Chiu M.D. on 10/18/2022 at 18:02 Approved by: Susi Chiu M.D. on 10/18/2022 at 18:13
[2022-10-18 17:30] VITALS: PULSE 68; O2SAT 97
[2022-10-18 18:00] VITALS: PULSE 75; O2SAT 98
--- NOTE | 2022-10-18 18:26 | ED_ITS ---
HPI - Abdominal Pain General Chief Complaint: Abdominal Pain Stated Complaint: states needs a head ct Time Seen by Provider: 10/18/22 18:26 Source: patient Mode of arrival: Ambulatory History of Present Illness HPI narrative: This is a 56-year-old male with history of opioid and methamphetamine abuse on methadone daily who had a recent colovesicular fistula, repair developed recurrent abscess had surgical drainage and intervention again. Since then had been doing well he states he had a little bit of pain at the end of August. Patient states since then in the last day or 2 notice some air very minute amount when he urinates. He denies fevers denies abdominal back or flank pain. He denies any diarrhea constipation currently. No black or bloody stools. He had some diarrhea beginning of the week 1 time. Patient states no dysuria, urgency or frequency. He is having difficulty with urination. He states no stool just minute amount of air. Patient states no known drug allergies. He is still on methadone daily. Does use tobacco, occasional alcohol, former substance abuse denies active use currently. Patient has been able to attend his follow-up appointments without issue. Related Data Previous Rx's Medication Instructions Recorded acetaminophen 325 mg capsule 650 mg PO QID PRN pain #60 caps 08/18/22 (Tylenol) ibuprofen 200 mg tablet 400 mg PO Q6H #60 tabs 08/18/22 Allergies Allergy/AdvReac Type Severity Reaction Status Date / Time No Known Drug Allergies Allergy Verified 10/18/22 16:44 Review of Systems Review of Systems ROS Unobtainable: All systems reviewed & are unremarkable except as noted in HPI and below Patient History Medical History BPH (benign prostatic hyperplasia) History of open sigmoidectomy Methamphetamine abuse Opioid use disorder Surgical History Anesthesia History of facial surgery (2006) S/P cystoscopy with ureteral stent placement Family History Brother Age: 50 Mental health problem Mother Hypertension Asthma Cancer Social History household members: friend(s) Smoking Status: Current every day smoker alcohol intake: current Smoking Status: Current every day smoker alcohol intake frequency: 0-2 drinks per day Substance Use Type: former substance user, opiates and methamphetamine Exam Narrative Exam Narrative: GENERAL: Alert and oriented x three, well-appearing male in no acute distress. HEENT: Head normocephalic, atraumatic, EOMI, pupils reactive, face symmetric, moist mucous membranes NECK: Supple, full range of motion CARDIOVASCULAR: Regular rate and rhythm without murmurs, rubs or gallops. RESPIRATORY: Breath sounds equal bilaterally, no wheezes rales or rhonchi. ABDOMEN: Soft, nontender. Normoactive bowel sounds all 4 quadrants. No guarding or rebound, rigidity, no mass : No CVA tenderness EXTREMITIES: Normal range of motion, no clubbing or edema. Neurovascularly intact NEUROLOGICAL: Cranial nerves II through XII grossly intact. Moving all extremities SKIN: Warm, dry, no petechiae, no rashes or lesions. Initial Vital Signs Initial Vital Signs: Vital Signs Temperature 97.8 F 10/18/22 16:36 Pulse Rate 78 10/18/22 16:36 Respiratory Rate 20 10/18/22 16:36 Blood Pressure 157/101 H 10/18/22 16:36 Pulse Oximetry 96 10/18/22 16:36 Oxygen Delivery Method Room Air 10/18/22 16:36 Course Orders Ordered: ED Orders 10/18/22 16:53 Complete Blood Count AUTO DIFF Stat Comprehensive Metabolic Panel Stat Lipase Stat 10/18/22 17:20 CT abdomen pelvis w con Stat 10/18/22 17:49 Urine Culture Stat Urine Microscopic Stat Discontinued Medications Ondansetron HCl (Ondansetron 4 Mg Odt) 4 mg PO NOW PRN PRN Reason: Nausea And Vomiting Ondansetron HCl (Ondansetron 4 Mg/2 Ml Inj) 4 mg IV NOW PRN PRN Reason: Nausea And Vomiting Vital Signs Vital signs: Vital Signs - 8 hr 10/18/22 16:36 10/18/22 17:14 10/18/22 17:30 Temperature 97.8 F Pulse Rate 78 71 68 Respiratory Rate 20 14 Blood Pressure 157/101 H Pulse Oximetry 96 96 97 Oxygen Delivery Method Room Air Room Air 10/18/22 18:00 10/18/22 18:30 10/18/22 19:12 Temperature Pulse Rate 75 69 61 Respiratory Rate 16 Blood Pressure 159/98 H Pulse Oximetry 98 100 97 Oxygen Delivery Method Room Air Room Air MDM - Abdominal Pain Lab Data 10/18/22 16:53 10/18/22 16:53 Labs: Lab Results 10/18/22 10/18/22 10/18/22 Range/Units 16:53 16:53 17:49 WBC 9.8 (4.5-11.0) X10^3/uL RBC 4.34 L (4.5-5.9) X10^6/uL Hgb 12.3 L (13.5-17.5) g/dL Hct 37.2 L (41-53) % MCV 85.8 (80-100) fL MCH 28.5 (26-34) PG MCHC 33.2 (30-36) % RDW 15.3 H (11.6-14.8) % Plt Count 330 (150-400) X10^3/uL Neut % (Auto) 61.6 (50-75) % Lymph % (Auto) 28.0 (25-40) % [place] % (Auto) 5.7 (3-14) % Eos % (Auto) 3.9 (2-4) % Baso % (Auto) 0.8 (0-2) % Neut # (Auto) 6000 (6785-2485) /uL Lymph # (Auto) 2700 (7842-6394) /uL [place] # (Auto) 600 (0-900) /uL Eos # (Auto) 400 (0-450) /uL Baso # (Auto) 100 (0-100) /uL Sodium 139 (137-145) mmol/L Potassium 4.3 (3.4-5.1) mmol/L Chloride 102 (98-107) mmol/L Carbon Dioxide 31 (22-32) mmol/L BUN 11 (9-20) mg/dL Creatinine 0.72 (0.66-1.25) mg/dL Estimated GFR > 60 (>60) mL/min BUN/Creatinine Ratio 15.3 (6-22) Glucose 78 (70-100) mg/dL Calcium 9.3 (8.4-10.2) mg/dL Total Bilirubin 0.1 L (0.2-1.3) mg/dL AST 26 (17-59) IU/L ALT 25 (<50) IU/L Alkaline Phosphatase 119 (38-126) U/L Total Protein 8.2 (6.3-8.2) g/dL Albumin 4.2 (3.5-5.0) g/dL Globulin 4.0 (1.7-4.1) g/dL Albumin/Globulin Ratio 1.1 (1.0-2.8) Lipase 41 (23-300) U/L Urine RBC None seen (0-5/HPF) Urine WBC 5-10/hpf H (0-5/HPF) Ur Squamous Epith Cells None seen (0-5/HPF) Amorphous Sediment 1+ Urine Bacteria Many (>30) H (None) Ur Culture Indicated? Specimen cultured Point of care testing: Urine Dip Bedside Urine Glucose Negative Bedside Urine Bilirubin - Negative Bedside Urine Ketone - Negative Urine Specific [place] 1.020 Bedside Urine Occult Blood - Negative Bedside Urine pH 6.0 Bedside Urine Protein - Negative Bedside Urine Urobilinogen - Negative Bedside Urine Nitrite - Negative Bedside Urine Leukocytes - Negative Esterase Imaging Data CT scan - abdomen/pelvis: Radiologist's Impression: [address] [address] [address] Scan Report Signed Patient: Carlos López MR#: [id number] : 1965 Acct:[id number] Age/Sex: 56 / M Date of Service: 10/18/22 Loc: ED Accession Number: [id number] ?? Procedure: CT abdomen pelvis w con Ordering Provider: Jessica Heath D.O. PROCEDURE:? CT ABDOMEN PELVIS W CON ? INDICATIONS:? peeing air h/o multiple abd surgeries ? TECHNIQUE:? After the administration of intravenous contrast, axial sections acquired from the lung bases to the pubic symphysis.? Coronal and sagittal reformats were performed.? For radiation dose reduction, the following was used:? automated exposure control, adjustment of mA and/or kV according to patient size.? ? COMPARISON:? [facility], CT, CT ABDOMEN PELVIS W CON, 08/30/2022, 16:30. ? FINDINGS:? Image quality:? Excellent.? ? Lung bases:? Unremarkable. Heart:? No significant findings. ? ABDOMEN: Liver:? Mild hepatomegaly.? Anterior left lobe cyst. Gallbladder:? Normal. Biliary ducts:? No intrahepatic biliary dilatation.? The extrahepatic common duct is chronically dilated but tapers at the pancreatic head. Pancreas:? Unremarkable.? ? Spleen:? Unremarkable.? ? Adrenal Glands:? Unremarkable.? ? Kidneys and Ureters:? There are two areas in the left renal cortex upper pole demonstrating decreased attenuation and ill definition of the corticomedullary junction.? There is a punctate nonobstructing calculus in the lower pole collecting system of the right kidney.? Mild left hydroureter and slight distal urothelial enhancement.? There is a probable punctate calcification in the left distal ureter a few cm above the UVJ. ? Stomach and Bowel:? There is a moderately increased quantity of solid stool present.? Sigmoid colon diverticula.? Postsurgical changes of sigmoidectomy.? Adjacent to the colorectal staple line, there is a well in capsulated collection of extraluminal gas which demonstrates a broad-based connection with the upper left aspect of the urinary bladder.? There is also a thin linear blind-ending air containing tract in the left anterior lower quadrant.? There is adjacent fascial thickening.? Adjacent distal colonic wall thickening.? But no acute inflammation.? Interval removal of left pelvic drain. Peritoneum:? Extraluminal gas as described is in capsulated.? No free air.? There is no free fluid or significant fluid collection. ? Ventral Wall: ? No hernias.? Abdominal Nodes:? No retroperitoneal or mesenteric adenopathy by size criteria.? Vessels:? Aorta and inferior vena cava are normal in size.? ? PELVIS: Pelvic Organs:? Interval removal of left pelvic drain.? Interval removal of F oley catheter. Bladder:? The left superior in lateral bladder wall remains thickened.? There is no air within the urinary bladder at this point. Pelvic Nodes: No enlarged lymph nodes.? Miscellaneous: No hernias are seen. ? ? ? Bones:? Unremarkable. ? . ? ? IMPRESSION: ? 1. Persistent air containing tracts arising from the colorectal anastomosis and/or residual sigmoid colon suggestive of colovesical fistula. ? 2. Interval removal of pelvic drain.? Resolution of prior pelvic abscess.? No current inflammation. ? 3. There are two small areas in the left renal parenchyma of cortical hypodensity suspicious for pyelonephritis.? There is minor hydroureteronephrosis.? Probable punctate distal ureteral calcification.? ? ? Dictated by: Susi Chiu M.D. on 10/18/2022 at 18:02 ? ? Approved by: Susi Chiu M.D. on 10/18/2022 at 18:13?? MDM Narrative Medical decision making narrative: This is a 56-year-old male who had recent colovesicular fistula with recurrent abscess and surgical intervention. Patient states he has been doing well but noticed a minute amount of air in his urine today. He denies any abdominal back or flank pain, no fevers. Here labs show no major changes. Point of care urine is negative was sent for microscopy. CT abdomen pelvis does show persistent air containing tracts raising from the colorectal anastomosis and residual sigmoid colon suggesting colovesicular fistula. Interval removal pelvic drain with resolution of prior pelvic abscess no current inflammation, 2 small areas in the left renal parenchyma cortical hypodensity suspicious for pyelo. Minor hydrouretero nephrosis. Probable punctate distal ureteral calcification. Discussed with general surgery Dr. Clifford. She would like to see the patient 1st thing tomorrow. Patient would like to return home and not be admitted overnight. Patient is hemodynamic stable with no signs of sepsis felt appropriate for follow up outpatient tomorrow. Patient is agreeable to this and has been able to keep his follow-up appointments. We did discuss if he is any issues scheduled appointment tomorrow to call or come back to the ER. Discharge Plan Departure Patient Disposition: Home Clinical Impression: [place]-vesical fistula Activity Restrictions/Additional Instructions: Follow-up with Dr. Clifford your general surgeon's office tomorrow. Please call 1st thing in the morning for an appointment. Let the front office know that she asks for you to be seen at an appointment today (10/19/22). Please return for fevers no abdominal pain, vomiting, if you are having difficulty with urination, black or bloody stools or other new or concerning changes. Prescriptions: No Action ibuprofen 200 mg tablet 400 mg PO Q6H Qty: 60 0RF acetaminophen [Tylenol] 325 mg capsule 650 mg PO QID PRN (Reason: pain) Qty: 60 0RF Referrals: Laura Clifford MD [Physician] - Stand Alone Forms: Patient Portal/API
[2022-10-18 18:30] VITALS: PULSE 69; RESP 16; O2SAT 100
[2022-10-18 18:58] LABS: Amorphous Sediment Urine 1+; Bacteria Urine Many (>30); Culture Indicated Urine Specimen Cultured; RBC Urine None Seen (0-5/HPF); Squamous Epithelial Cell Urine None Seen (0-5/HPF); WBC Urine 5-10/HPF (0-5/HPF)
[2022-10-18 19:12] VITALS: BP 159/98; PULSE 61; O2SAT 97
== END 2022-10-18 19:13 | disposition home or self-care (01) ==
PROVIDERS: Emergency Provider Emergency Medicine; Family Provider Family Medicine
DX: N32.1 Vesicointestinal fistula (principal)
CPT/HCPCS: 36415; 74177; 80053; 81003; 81015; 83690; 85025; 87077; 87086; 87186; 99284; Q9967

== ENCOUNTER → 2023-01-03 11:06 | Outpatient (CLI) | payer OTHER, MEDICAID, SELFPAY ==
[2022-09-12 15:52] VITALS: BMI 22.8
[2023-01-03 12:52] LABS: Magnesium 1.7 mg/dL (1.6-2.3)
[2023-01-03 13:21] LABS: Thyroid Stimulating Hormone 0.334 uIU/mL (0.47-4.68)
[2023-01-05 06:40] LABS: Cholesterol 162 mg/dL (140-199); HDL Cholesterol 44 mg/dL (40-60); LDL Cholesterol Calculated 103 mg/dL (<100); Triglycerides 74 mg/dL (35-150)
== END ==
PROVIDERS: Family Provider Family Medicine; Referring Provider Internal Medicine Cardiovascular Disease; Visit Provider Internal Medicine Cardiovascular Disease
DX: Z13.220 Encounter for screening for lipoid disorders (principal); F11.20 Opioid dependence, uncomplicated; I49.1 Atrial premature depolarization; R94.31 Abnormal electrocardiogram [ECG] [EKG]; I44.4 Left anterior fascicular block
CPT/HCPCS: 36415; 80061; 83735; 84443